=== PATIENT | male | born 1965 | race Caucasian/White ===

== ENCOUNTER 2023-11-14 13:50 | Outpatient (OUT) | payer OTHER, SELFPAY ==
--- NOTE | 2023-11-14 14:06 | XR_ITS ---
The [address] [address] Patient Name: HINA ALDRIDGE MRN: [id number] date: 1965 Sex: M Assigned Patient Location: LAB Current Patient Location: LAB Accession/Order Number: [id number] Exam Date: 11/14/2023 14:19 Report Date: 11/14/2023 15:33 At the request of: JONI CAMPOS Procedure: XR chest 2V EXAMINATION: XR chest 2V HISTORY: shortness of breath R06.02 COMPARISON: 02/09/2023 TECHNIQUE: PA and lateral FINDINGS: LUNGS: No significant pulmonary parenchymal abnormalities. VASCULATURE: No increased pulmonary vasculature. PLEURA: No pneumothorax, effusion, or pleural thickening. Elevation of the right hemidiaphragm CARDIAC: No cardiomegaly or cardiac silhouette abnormality. MEDIASTINUM: No visible mass or adenopathy. BONES: No fracture or visible bone lesion. Cervical fusion hardware OTHER: Negative. XR/XR chest 2V IMPRESSION: No acute cardiopulmonary process Electronically authenticated by: NEYDA KEYS Date: 11/14/2023 15:33
[2023-11-14 14:37] LABS: Estimated Average Glucose 131 mg/dL; Glycohemoglobin A1C 6.2 % (4.5-6.2)
[2023-11-14 14:38] LABS: Alanine Aminotransferase 113 U/L (16-63); Alkaline Phosphatase 67 U/L (46-116); Anion Gap 12.8; Aspartate Amino Transferase 49 U/L (15-37); BUN Creatinine Ratio 8.6; Bilirubin Total 0.6 mg/dL (0.2-1.0); Calcium 9.3 mg/dL (8.5-10.1); Chloride 102 mmol/L (98-107); Chol HDL Ratio 3.5; Cholesterol 158 mg/dL (<=200); Estimated GFR (African America >60 (>=60); Estimated GFR (Non-African Ame 52 (>=60); Free T3 2.57 pg/mL (2.18-3.98); Globulin 3.9 g/dL; Glucose 112 mg/dL (74-106); HDL Cholesterol 45 mg/dL (40-60); Potassium 3.8 mmol/L (3.5-5.1); Sodium 141 mmol/L (136-145); Thyroid Stimulating Hormone 1.267 uIU/mL (0.358-3.740); Total Protein 7.9 g/dL (6.4-8.2); Triglycerides 120 mg/dL (<=150)
[2023-11-14 14:44] LABS: Basophils Absolute Auto 0.1 10^3/uL (0.0-0.1); Basophils Percent Auto 0.8 % (0.2-2.0); Eosinophils Absolute Auto 0.3 10^3/uL (0.0-0.7); Hematocrit 45.9 % (42.0-54.0); Hemoglobin 15.1 g/dL (14.0-18.0); Immature Granulocytes Abs Auto 0.09 10^3/uL (0.00-0.03); Lymphocytes Absolute Auto 2.4 10^3/uL (1.2-3.8); Lymphocytes Percent Auto 27.5 % (20.5-60.0); Mean Corpuscular HGB Conc 32.9 g/dL (29.9-35.2); Mean Platelet Volume 9.5 fL (9.5-13.5); Monocytes Absolute Auto 0.5 10^3/uL (0.3-0.8); Monocytes Percent Auto 6.1 % (1.7-12.0); Neutrophils Absolute Auto 5.4 10^3/uL (1.4-6.5); Neutrophils Percent Auto 61.6 % (43.0-75.0); Platelet Count 307 10^3/uL (150-450); Red Cell Distribution Width 13.2 % (11.0-15.0); White Blood Count 8.7 10^3/uL (4.0-11.0)
[2023-11-14 14:55] LABS: Prostate Specific Antigen Scrn 1.16 ng/mL (<=4.00)
[2023-11-15 10:10] LABS: Insulin 77.8 uIU/mL (2.6-24.9)
== END 2023-11-14 13:51 | disposition home or self-care (01) ==
PROVIDERS: PCP Family Medicine; Visit Provider Family Medicine
DX: Z00.00 Encounter for general adult medical examination without abnormal findings (principal); R06.02 Shortness of breath
CPT/HCPCS: 36415; 71046; 80053; 80061; 83036; 83525; 84436; 84443; 84481; 85025; G0103

== ENCOUNTER 2023-11-16 08:57 | Outpatient (OUT) | payer OTHER, SELFPAY ==
--- NOTE | 2023-11-16 09:00 | RT_ITS ---
The [facility] Test Date: 2023-11-16 Pat Name: HINA ALDRIDGE Department: Room: - Gender: Male French Tutor: Elicia Sarmiento RRT : 1965 Requested By: JONI CAMPOS Order Number: [id number] Reading MD: Alexandre Vaughan Interpretive Statements Pulmonary function testing was completed according to ATS criteria. Findings were considered accurate and reproducible. No bronchodilator administered. Spirometry: -FEV1/FVC: Normal @ 85% -FEV1: Normal @ 87% -FVC: Mildly reduced @ 78% Lung volumes by plethysmography: -RV: Normal @ 96% -TLC: Normal @ 100% Diffusion capacity: -DLCO: Normal @ 95% when corrected for Hb 15.1g/dL Flow-volume loop: -Mild restrictive pattern Impressions: -Mild restrictive pattern on spirometry which is not confirmed on lung volumes as they are normal - this would be consistent with an obesity pattern (stated BMI 37). Normal diffusion capacity. Clinical correlation required. Electronically Signed On 11-16-2023 16:46:29 EST by Alexandre Vaughan
--- OUTSIDE RECORDS SUMMARY | 2023-11-16 09:22 | XMS_ITS | CCD ---
Author Name Unknown Address [address] [place] [address] Organization [facility] Care Team Providers Care Coater Associate Name Role Phone MD Joni Hernandez Primary Care Provider [phone] MD Joni Hernandez Attending Provider Joni Hernandez Attending Unavailable Joni Hernandez Primary Care Unavailable Joni Hernandez Admitting Unavailable Joni Hernandez Primary Care Physician [phone] Baltazar CARTAGENA Attending Unavailable NILLBaltazar Attending Unavailable NILLBaltazar Attending Unavailable NILLBaltazar Attending Unavailable HOY ., DR QUINONES Admitting Unavailable HOY ., DR QUINONES Primary Care Unavailable HOY ., DR QUINONES Attending Unavailable HOY ., DR QUINONES Consulting Unavailable ZIEBER, DR JULIEN Townsend Consulting Unavailable HOY ., DR QUINONES Admitting Unavailable HOY ., DR QUINONES Attending Unavailable HOY ., DR QUINONES Consulting Unavailable HOY ., DR QUINONES Primary Care Unavailable NILL ., DR LEDESMA Admitting Unavailable NILL ., DR LEDESMA Attending Unavailable HOY ., DR QUINONES Primary Care Unavailable HOY ., DR QUINONES Primary Care Unavailable HOY ., DR QUINONES Admitting Unavailable HOY ., DR QUINONES Attending Unavailable HOY ., DR QUINONES Consulting Unavailable ZIEBER, DR JULIEN Townsend Consulting Unavailable REYMUNDOCHNY .MATTHEW Consulting Unavailjennifer ORELLANA ., DR GARNER Admitting Unavailable HAY ., DR GARNER Attending Unavailable HAY ., DR GARNER Consulting Unavailable HOY ., DR QUINONES Primary Care Unavailable HOY ., DR QUINONES Admitting Unavailable HOY ., DR QUINONES Attending Unavailable HOY ., DR QUINONES Consulting Unavailable HOY ., DR QUINONES Primary Care Unavailable NILL ., DR LEDESMA Admitting Unavailable NILL ., DR LEDESMA Attending Unavailable HOY ., DR QUINONES Primary Care Unavailable NILL ., DR LEDESMA Admitting Unavailable NILL ., DR LEDESMA Attending Unavailable NILL ., DR LEDESMA Consulting Unavailable HOY ., DR QUINONES Primary Care Unavailable SALLIE II, RED Consulting Unavailable ALAN PAIGE Consulting Unavailable BETH ., DR QUINONES Admitting Unavailable HOAlissa ., DR QUINONES Attending Unavailable HOY ., DR QUINONES Consulting Unavailable BETH ., DR QUINONES Primary Care Unavailable Allergies Allergy Classification Reported Allergen(s) Allergy Type Date of Onset Reaction(s) Facility (3 sources) atorvastatin; Translations: [atorvastatin] Drug Allergy Cramp (finding) [facility] (3 sources) Clindamycin; Translations: [clindamycin] Drug Allergy Eruption of skin (disorder) [facility] (3 sources) Sulfonamides (Antibiotic); Translations: [sulfa drugs] Drug allergy Eruption (morphologic abnormality) [facility] (1 source) Bacitracin / Neomycin / Polymyxin B Drug Allergy [facility] (1 source) Clindamycin Drug Allergy [facility] (1 source) Dextroamphetamine Drug Allergy [facility] (1 source) Morphine Drug Allergy 02-10-20 [facility] (1 source) Sulfonamides (Antibiotic) Drug allergy (disorder) [facility] Medications Current Medications Medication Drug Class(es) Dates Sig (Normalized) Sig (Original) Cymbalta 60 mg Cap-DR (2 sources) Start: 08-25-2022 take 1 capsule by mouth once daily Cymbalta 60 mg Cap-DR = 1 cap(s), Oral, Daily, Refills(s) 0 Start Date: 08/25/22 Status: Ordered diclofenac sodium 75 mg delayed release oral tablet (2 sources) Nonsteroidal Anti-inflammatory Drug Start: 08-25-2022 take 1 tablet by mouth twice daily diclofenac sodium 75 mg Oral EC Tab 75 mg = 1 tab(s), Oral, BID, Refills(s) 0 Start Date: 08/25/22 Status: Ordered Dulera 100 mcg-5 mcg/inh inhalation aerosol (2 sources) Start: 08-25-2022 take 2 puff(s) by inhalation twice daily Dulera 100 mcg-5 mcg/inh inhalation aerosol 2 puff(s), Inhalation, BID, Refill(s) 0 Start Date: 08/25/22 Status: Ordered famotidine 40 mg oral tablet (2 sources) Histamine-2 Receptor Antagonist Start: 08-25-2022 take 1 tablet by mouth twice daily Pepcid 40 mg Tab 40 mg = 1 tab(s), Oral, BID, Refills(s) 0 Start Date: 08/25/22 Status: Ordered fluticasone propionate 0.05 mg/actuat metered dose nasal spray (2 sources) Corticosteroid Start: 08-25-2022 Flonase 0.05 mg/inh [place] 1 spray(s), Nasal, BID, Refill(s) 0 Start Date: 08/25/22 Status: Ordered hydrocortisone acetate 25 mg/ml / pramoxine hydrochloride 10 mg/ml rectal cream (2 sources) Corticosteroid Start: 08-25-2022 hydrocortisone-p ramoxine 2.5%-1% rectal cream 1 ladi, Rectal, BID, Refill(s) 0 Start Date: 08/25/22 Status: Ordered lisinopril 40 mg oral tablet (4 sources) Angiotensin Converting Enzyme Inhibitor Start: 08-25-2022 take 1 tablet by mouth once daily lisinopril 40 mg Tab 40 mg = 1 tab(s), Oral, Daily, Refills(s) 0 Start Date: 08/25/22 Status: Ordered Start: 07-31-2018 take 20 mg by mouth once daily Lisinopril Active 20 MG PO Daily July 31, 2018 1:00am Loratadine-D 24 Hour (2 sources) Start: 08-25-2022 take 1 tablet by mouth once daily Loratadine-D 24 Hour 1 tab(s), Oral, Daily, Refill(s) 0 Start Date: 08/25/22 Status: Ordered nabumetone 500 mg oral tablet (4 sources) Nonsteroidal Anti-inflammatory Drug Start: 10-31-2019 take 2 tablets by mouth twice daily nabumetone 500 mg Tab 1,000 mg = 2 tab(s), Oral, BID, Refills(s) 0 Start Date: 10/31/19 Status: Ordered Start: 07-31-2018 take 500 mg by mouth once kellie y Nabumetone Active 500 MG PO Daily July 31, 2018 1:00am simvastatin 20 mg oral tablet (2 sources) HMG-CoA Reductase Inhibitor Start: 08-25-2022 take 1 tablet by mouth once daily at bedtime simvastatin 20 mg Tab 20 mg = 1 tab(s), Oral, Once a day (at bedtime), Refills(s) 0 Start Date: 08/25/22 Status: Ordered sucralfate 1000 mg oral tablet (2 sources) Aluminum Complex Start: 08-25-2022 Carafate 1 gr am Tab 1 gm = 1 tab(s), Oral, QIDACHS, Refills(s) 0 Start Date: 08/25/22 Status: Ordered tamsulosin hydrochloride 0.4 mg oral capsule (4 sources) alpha-Adrenergic Hope Start: 08-25-2022 take 1 capsule by mouth once daily Flomax 0.4 mg Cap 0.4 mg = 1 cap(s), Oral, Daily, Refills(s) 0 Start Date: 08/25/22 Status: Ordered Start: 07-31-2018 take 0.4 mg by mouth once kellie y Tamsulosin Active 0.4 MG PO Daily July 31, 2018 1:00am tiZANidine 4 mg oral tablet (4 sources) Central alpha-2 Adrenergic Agonist Start: 08-25-2022 take 2 tablets by mouth at bedtime tiZANidine 4 mg Tab 8 mg = 2 tab(s), Oral, Bedtime, Refills(s) 0 Start Date: 08/25/22 Status: Ordered Start: 07-31-2018 take 4 mg by mouth once daily Tizanidine Active 4 MG PO Daily July 31, 2018 1:00am traMADol hydrochloride 50 mg oral tablet (2 sources) Opioid Agonist Start: 08-25-2022 take 1 tablet by mouth three times daily traMADOL 50 mg Tab 50 mg = 1 tab(s), Oral, TID, Refills(s) 0 Start Date: 08/25/22 Status: Ordered Ventolin HFA 90 mcg/inh Aerosol-Adpt (2 sources) Start: 08-25-2022 take 2 puff(s) by inhalation every four hours Ventolin HFA 90 mcg/inh Aerosol-Adpt 2 puff(s), Inhalation, q4hr Shortness of breath or wheezing, Refill(s) 0 Start Date: 08/25/22 Status: Ordered Problems Active Problems Problem Classification Problem Date Documented Date Episodic/Chronic Anxiety disorders (3 sources) Anxiety; Translations: [Anxiety disorder, unspecified] Onset: 02-17-2008-25-2022 Chronic Asthma (2 sources) Asthma 08-25-2022 Chronic Calculus of urinary tract (3 sources) History of calculus of kidney; Translations: [Personal history of urinary calculi] Onset: 02-17-2008-25-2022 Episodic Coronary atherosclerosis and other heart disease (1 source) Atherosclerotic heart disease of [place] coronary artery without angina pectoris; Translations: [ASHD PILOT POINT CA W/O ANGINA PECTORIS] Onset: 02-17-20 Chronic Deficiency and other anemia (2 sources) Anemia 08-25-2022 Episodic Disorders of lipid metabolism (1 source) Pure hypercholesterolemia, unspecified; Translations: [PURE HYPERCHOLESTEROLEMIA UNSPEC] Onset: 02-17-20 Chronic Esophageal disorders (7 sources) Gastroesophageal reflux disease without esophagitis; Translations: [Gastro-esophageal reflux disease without esophagitis] Onset: 08-27-20 Chronic Essential hypertension (3 sources) Hypertensive disorder; Translations: [Essential (primary) hypertension] Onset: 02-17-2011-01-2019 Chronic Gastritis and duodenitis (1 source) Unspecified chronic gastritis without bleeding; Translations: [UNS CHRONIC GASTRITIS W/O BLEEDING] Onset: 09-29-19 Chronic Joint disorders and dislocations; trauma-related (4 sources) Unspecified internal derangement of unspecified knee; Translations: [Unspecified internal derangement of left knee] Onset: 06-03-20 Chronic Neoplasms of unspecified nature or uncertain behavior (2 sources) 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 11-01-2019 Episodic Nonmalignant breast conditions (1 source) Unspecified lump in the left breast, unspecified quadrant; Translations: [UNS LUMP IN LT BREAST UNS QUADRANT] Onset: 02-17-20 Episodic Nonspecific chest pain (4 sources) Chest pain, unspecified; Translations: [CHEST PAIN UNSPECIFIED] Onset: 02-10-20 Episodic Nutritional deficiencies (3 sources) Vitamin D deficiency; Translations: [Vitamin D deficiency, unspecified] Onset: 09-29-19 23 08-25-2022 Chronic Other aftercare (1 source) assisted (current) use of aspirin; Translations: [SHELTER CURRENT USE OF ASPIRIN] Onset: 02-17-20 Episodic Other aftercare (1 source) Other termite treater helper (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; Translations: [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 INSTRUCTOR CURRENT DRUG THERAPY] Onset: 02-17-20 Episodic Other and ill-defined cerebrovascular disease (2 sources) Cerebral ischemia 08-25-2022 Chronic Other gastrointestinal disorders (4 sources) History of diverticulitis; Translations: [Personal history of other diseases of the digestive system] 07-31-2018 Episodic Other gastrointestinal disorders (3 sources) Dysphagia; Translations: [Dysphagia, unspecified] Onset: 08-27-20 Episodic Other gastrointestinal disorders (2 sources) History of gastritis 08-25-2022 Episodic Other gastrointestinal disorders (1 source) Personal history of other diseases of the digestive system; Translations: [PERSONAL HX OTH DZ DIGESTIVE SYSTEM] Onset: 02-17-20 Episodic Other nervous system disorders (2 sources) Paresthesia 08-25-2022 Episodic Other nutritional; endocrine; and metabolic disorders (2 sources) Body mass index 30+ - obesity 08-27-2022 Chronic Other screening for suspected conditions (not mental disorders or infectious disease) (2 sources) Abnormal findings on diagnostic imaging of other specified body structures; Translations: [Other specified abnormal findings of blood chemistry] Onset: 07-14-20 Episodic Other skin disorders (2 sources) Senile hyperkeratosis 11-16-2019 Episodic Other upper respiratory disease (2 sources) Allergic rhinitis 08-25-2022 Chronic Residual codes; unclassified (2 sources) Obstructive sleep apnea syndrome 08-25-2022 Chronic Residual codes; unclassified (1 source) Sleep apnea, unspecified; Translations: [SLEEP APNEA UNSPECIFIED] Onset: 02-17-20 Chronic Residual codes; unclassified (5 sources) Obstructive sleep apnea (adult) (pediatric); Translations: [OBSTRUCTIVE SLEEP APNEA] Onset: 09-29-19 Chronic Residual codes; unclassified (2 sources) Insomnia 08-25-2022 Episodic Spondylosis; intervertebral disc disorders; other back problems (2 sources) Chronic low back pain 08-25-2022 Episodic Unclassified (1 source) UNSPECIFIED TOXIC ENCEPHALOPATHY; Translations: [UNSPECIFIED TOXIC ENCEPHALOPATHY] Onset: 09-29-19 Unclassified (1 source) LOW BACK PAIN, UNSPECIFIED; Translations: [LOW BACK PAIN, UNSPECIFIED] Onset: 09-29-19 Unclassified (1 source) CONTACT W/AND (SUSP) EXPOS COVID-19; Translations: [CONTACT W/AND (SUSP) EXPOS COVID-19] Onset: 09-23-19 Past or Other Problems Problem Classification Problem Date Documented Da te Episodic/Chronic Abdominal pain (6 sources) Abdominal pain; Translations: [Unspecified abdominal pain] Onset: 08-27-2022 07-31-2018 Episodic Deficiency and other anemia (1 source) Anemia, unspecified; Translations: [ANEMIA UNSPECIFIED] Onset: 06-06-2022 Episodic Malaise and fatigue (4 sources) Other fatigue; Translations: [OTHER FATIGUE] Onset: 06-02-2022 Episodic Other circulatory disease (3 sources) Other specified symptoms and signs involving the circulatory and respiratory systems; Translations: [OTH SPEC SX SIGNS INVLV CIRC RS] Onset: 10-28-2022 Episodic Other circulatory disease (1 source) Personal history of transient ischemic attack (TIA), and cerebral infarction without residual deficits; Translations: [PERS HX TIA AND CI NO RESID DEFICIT] Onset: 09-29-2022 Episodic Other gastrointestinal disorders (5 sources) Dysphagia, unspecified; Translations: [DYSPHAGIA UNSPECIFIED] Onset: 09-22-2022 Episodic Other skin disorders (4 sources) Other hypertrophic disorders of the skin; Translations: [OTHER HYPERTROPHIC DISORDERS SKIN] Onset: 10-19-2022 Episodic Residual codes; unclassified (1 source) Insomnia, unspecified; Translations: [INSOMNIA UNSPECIFIED] Onset: 09-29-2022 Episodic Results Test Name Value Interpretation Reference Range Facility BNPon 02-10-2023 Natriuretic peptide B (Bld) [Mass/Vol] 13.0 pg/mL Normal <=900.0 [facility] Comment on above: Performed By: #### CMP, BNP #### [facility] [address] [address] [address] Irene Nina CBC AUTO DIFFon 02-10-2023 BASO # 0.1 103/ul Normal 0.0-0.1 [facility] Comment on above: Performed By: #### PT, DDIM, PTT #### [facility] [address] [address] [address] Irene Nina Basophils/100 WBC (Bld) 0.9 % Normal 0.2-2.0 [facility] Comment on above: Performed By: #### PT, DDIM, PTT #### [facility] [address] [address] [address] Irene Nina EO # 0.4 103/ul Normal 0.0-0.7 [facility] Comment on above: Performed By: #### PT, DDIM, PTT #### [facility] [address] [place] [address] Dr. Irene Nina Eosinophils/100 WBC (Bld) 5.2 % Normal 0.9-7.0 [facility] Comment on above: Performed By: #### PT, DDIM, PTT #### [facility] [address] [place] [address] Dr. Irene Nina Erythrocyte distribution width (RBC) [Ratio] 13.2 % Normal 11.0-15.0 [facility] Comment on above: Performed By: #### PT, DDIM, PTT #### [facility] [address] [place] [address] Dr. Irene Nina Hematocrit (Bld) [Volume fraction] 43.4 % Normal 42.0-54.0 [facility] Comment on above: Performed By: #### PT, DDIM, PTT #### [facility] [address] [place] [address] Dr. Irene Nina Hemoglobin (Bld) [Mass/Vol] 14.0 g/dL Normal 14.0-18.0 [facility] Comment on above: Performed By: #### PT, DDIM, PTT #### [facility] [address] [place] [address] Dr. Irene Nina IG # 0.10 10e3/ul Critically high 0.00-0.03 [facility] Comment on above: Performed By: #### PT, DDIM, PTT #### [facility] [address] [place] [address] Dr. Irene Nina IG % 1.3 % Critically high 0.0-0.5 [facility] Comment on above: Performed By: #### PT, DDIM, PTT #### [facility] [address] [place] [address] Dr. Irene Nina LYMPH # 2.7 103/ul Normal 1.2-3.8 [facility] Comment on above: Performed By: #### PT, DDIM, PTT #### [facility] [address] [place] [address] Dr. Irene Nina Lymphocytes/100 WBC (Bld) 34.8 % Normal 20.5-60.0 [facility] Comment on above: Performed By: #### PT, DDIM, PTT #### [facility] [address] [place] [address] Dr. Irene Nina MANUAL DIFF REQ NO Normal [facility] Comment on above: Performed By: #### PT, DDIM, PTT #### [facility] [address] [place] [address] Dr. Irene Nina MCH (RBC) [Entitic mass] 27.7 pg Normal 25.9-34.0 [facility] Comment on above: Performed By: #### PT, DDIM, PTT #### [facility] [address] [place] [address] Dr. Irene Nina MCHC (RBC) [Mass/Vol] 32.3 g/dL Normal 29.9-35.2 [facility] Comment on above: Performed By: #### PT, DDIM, PTT #### [facility] [address] [place] [address] Dr. Irene Nina MCV (RBC) [Entitic vol] 85.8 fL Normal 80.0-94.0 [facility] Comment on above: Performed By: #### PT, DDIM, PTT #### [facility] [address] [place] [address] Dr. Irene Nina MONO # 0.6 103/ul Normal 0.3-0.8 [facility] Comment on above: Performed By: #### PT, DDIM, PTT #### [facility] [address] [place] [address] Dr. Irene Nina Monocytes/100 WBC (Bld) 7.7 % Normal 1.7-12.0 [facility] Comment on above: Performed By: #### PT, DDIM, PTT #### [facility] [address] [address] [address] Irene Nina NEUT # 3.9 103/ul Normal 1.4-6.5 [facility] Comment on above: Performed By: #### PT, DDIM, PTT #### [facility] [address] [address] [address] Irene Nina Neutrophils/100 WBC (Bld) 50.1 % Normal 43.0-75.0 [facility] Comment on above: Performed By: #### PT, DDIM, PTT #### [facility] [address] [place] [address] Dr. Irene Nina Platelet mean volume (Bld) [Entitic vol] 9.5 fL Normal 9.5-13.5 [facility] Comment on above: Performed By: #### PT, DDIM, PTT #### [facility] [address] [place] [address] Dr. Irene Nina PLT 239 103/ul Normal 150-450 [facility] Comment on above: Performed By: #### PT, DDIM, PTT #### [facility] [address] [place] [address] Dr. Irene Nina RBC 5.06 106/ul Normal 4.70-6.10 [facility] Comment on above: Performed By: #### PT, DDIM, PTT #### [facility] [address] [place] [address] Dr. Irene Nina WBC 7.8 103/ul Normal 4.0-11.0 [facility] Comment on above: Performed By: #### PT, DDIM, PTT #### [facility] [address] [place] [address] Dr. Irene Nina ECHOCARDIO M/2D COMPLETEon 0 02-10-2023 ECHOCARDIO M/2D COMPLETE Patient: HINA SCHULTZ Exam Date: 02/10/2023 : 1965 Gender:M Ordering : DR JONI HERNANDEZ . Admission #: [id number] Family : Order #: [id number] CLICK HERE TO VIEW EXAM ECHOCARDIOGRAM REPORT PROCEDURE: CARDIO PULMONARY ECHOCARDIO M/2D COMP INDICATIONS: Chest pain COMPARISON: None. DESCRIPTION: COMPLETE ECHOCARDIOGRAM Real-time transthoracic echocardiography with 2D, M-mode, spectral and color flow Doppler performed. QUALITY: Technical quality was good. LEFT VENTRICLE: Normal chamber size. Mild concentric left ventricular hypertrophy. LV EF: Global left ventricular systolic function is hyperdynamic; visually estimated ejection fraction is 65 to 70%. No significant wall motion abnormalities. DIASTOLIC: Normal diastolic function. ATRIAL SEPTUM: Inadequately seen. LEFT ATRIUM: Normal chamber size. RIGHT ATRIUM: Normal chamber size. RIGHT VENTRICLE: Normal chamber size. Normal right ventricular systolic function. TRICUSPID VALVE: Normal mobility and thickness. No stenosis with trivial regurgitation. Mild pulmonary hypertension. RVSP 40mmHg MITRAL VALVE: Normal mobility and thickness. No evidence of mitral valve stenosis. There is no mitral annular calcification. No mitral regurgitation. AORTIC VALVE: Normal trileaflet appearance. No visible sclerosis. Normal leaflet mobility. No evidence of aortic valve stenosis. No aortic regurgitation. AORTIC ROOT: Normal diameter and appearance. PULMONIC VALVE: Normal thickness and mobility. No stenosis. Trivial regurgitation. PERICARDIUM: Anterior free space; trivial effusion versus fat pad. IVC: Not well visualized. CONCLUSION: 1. Global left ventricular systolic function is hyperdynamic; visually estimated ejection fraction is 65 to 70%. 2. No significant wall motion abnormalities. 3. The right ventricle is normal in size and systolic function. 4. Normal diastolic function. 5. Mildly elevated right-sided pressures. 6. No significant valvular abnormalities. 7. Anterior free space; trivial effusion versus fat pad. Adult Echocardiography Procedure Report Left Ventricle Left Atrium LA Volume Index (2D A2C): 54.62 ml, 54.62 ml Mitral Valve Right Ventricle Aorta Aortic Valve AoV Area (Peak Jimy): 3.04 cm2, 3.04 cm2 AoV Area (VTI): 2.66 cm2, 2.66 cm2 Tricuspid Valve Pulmonic Valve Peak Velocity: 1.05 m/s, 1.18 m/s Peak Gradient: 4.98 mm[Hg] Right Atrium Dictated by: Stuart Suarez M.D. on 02/13/2023 at 14:53 Approved by: Stuart Suarez M.D. on 02/13/2023 at 14:57 Normal [facility] PROF 14(COMP METB)on 05-25-2 023 Albumin [Mass/Vol] 3.5 g/dL Normal 3.4-5.0 [facility] Comment on above: Performed By: #### CMP, BNP #### [facility] [address] [place] [address] Dr. Irene Nina Albumin/Globulin [Mass ratio] 1.1 {ratio} Normal [facility] Comment on above: Performed By: #### CMP, BNP #### [facility] [address] [address] [address] Irene Nina ALP [Catalytic activity/Vol] 63 U/L Normal 46-116 [facility] Comment on above: Performed By: #### CMP, BNP #### [facility] [address] [place] [address] Dr. Irene Nina ALT [Catalytic activity/Vol] 72 U/L Critically high 16-63 [facility] Comment on above: Performed By: #### CMP, BNP #### [facility] [address] [place] [address] Dr. Irene Nina Anion gap [Moles/Vol] 10.9 mmol/L Normal [facility] Comment on above: Performed By: #### CMP, BNP #### [facility] [address] [place] [address] Dr. Irene Nina AST [Catalytic activity/Vol] 35 U/L Normal 15-37 [facility] Comment on above: Performed By: #### CMP, BNP #### [facility] [address] [place] [address] Dr. Irene Nina Bilirubin [Mass/Vol] 0.4 mg/dL Normal 0.2-1.0 [facility] Comment on above: Performed By: #### CMP, BNP #### [facility] [address] [place] [address] Dr. Irene Nina Calcium [Mass/Vol] 9.2 mg/dL Normal 8.5-10.1 [facility] Comment on above: Performed By: #### CMP, BNP #### [facility] [address] [place] [address] Dr. Irene Nina Chloride [Moles/Vol] 105 mmol/L Normal 98-107 [facility] Comment on above: Performed By: #### CMP, BNP #### [facility] [address] [address] [address] Irene Nina CO2 [Moles/Vol] 30.2 mmol/L Normal 21.0-32.0 [facility] Comment on above: Performed By: #### CMP, BNP #### [facility] [address] [address] [address] Irene Nina Creatinine [Mass/Vol] 1.43 mg/dL Critically high 0.70-1.30 [facility] Comment on above: Performed By: #### CMP, BNP #### [facility] [address] [address] [address] Irene Nina EGFR-AF [place]EN[place]IC >60 Normal >=60 [facility] Comment on above: Performed By: #### CMP, BNP #### [facility] [address] [address] [address] Irene Nina EGFR-NON AF [place] 51 mL/min/1.73m2 Critically low >=60 [facility] Comment on above: Performed By: #### CMP, BNP #### [facility] [address] [address] [address] Irene Nina Globulin (S) [Mass/Vol] 3.3 g/dL Normal [facility] Comment on above: Performed By: #### CMP, BNP #### [facility] [address] [address] [address] Irene Nina Glucose [Mass/Vol] 100 mg/dL Normal 74-106 [facility] Comment on above: Performed By: #### CMP, BNP #### [facility] [address] [address] [address] Irene Nina Potassium [Moles/Vol] 4.1 mmol/L Normal 3.5-5.1 [facility] Comment on above: Performed By: #### CMP, BNP #### [facility] [address] [place] [address] Dr. Irene Nina Protein [Mass/Vol] 6.8 g/dL Normal 6.4-8.2 [facility] Comment on above: Performed By: #### CMP, BNP #### [facility] [address] [place] [address] Dr. Irene Nina Sodium [Moles/Vol] 142 mmol/L Normal 136-145 [facility] Comment on above: Performed By: #### CMP, BNP #### [facility] [address] [place] [address] Dr. Irene Nina Urea nitrogen [Mass/Vol] 14.0 mg/dL Normal 7.0-18.0 [facility] Comment on above: Performed By: #### CMP, BNP #### [facility] [address] [place] [address] Dr. Irene Nina Urea nitrogen/Creatin ine [Mass ratio] 9.8 mg/mg Normal [facility] Comment on above: Performed By: #### CMP, BNP #### [facility] [address] [place] [address] Dr. Irene Nina BNPon 02-09-2023 Natriuretic peptide B (Bld) [Mass/Vol] 20.0 pg/mL Normal <=900.0 [facility] Comment on above: Performed By: #### CMP, BNP, HSTROPN ### # [facility] [address] [place] [address] Dr. Irene Nina CARDIAC MP 3-6on 3 CK [Catalytic activity/Vol] 117 U/L Normal 39-308 [facility] Comment on above: Performed By: #### PT, DDIM, PTT #### [facility] [address] [place] [address] Dr. Irene Nina CK.MB [Mass/Vol] 0.99 ng/mL Normal <=3.60 [facility] Comment on above: Performed By: #### PT, DDIM, PTT #### [facility] [address] [place] [address] Dr. Irene Nina HSTROP 9.6 pg/mL Normal 4.0-76.1 [facility] Comment on above: Result Comment: CUT-OFF POINTS HAVE BEEN ESTABLISHED BASED ON THE FOURTH UNIVERSAL DEFINITIONS OF MYOCARDIAL INFARCTION. THE UPPER REFERENCE LIMIT (URL) OF TROPONIN, DEFINED THE 99TH PERCENTILE OF cTnI DISTRIBUTION IN A REFERENCE POPULATION, HAS BEEN CONFIRMED THE DECISION THRESHOLD FOR DE DIAGNOSIS. Performed By: #### P T, DDIM, PTT #### [facility] [address] [place] [address] Dr. Irene Nina CK [Catalytic activity/Vol] 132 U/L Normal 39-308 [facility] Comment on above: Performed By: #### PT, DDIM, PTT #### [facility] [address] [place] [address] Dr. Irene Nina CK.MB [Mass/Vol] 1.10 ng/mL Normal <=3.60 [facility] Comment on above: Performed By: #### PT, DDIM, PTT #### [facility] [address] [place] [address] Dr. Irene Nina HSTROP 10.2 pg/mL Normal 4.0-76.1 [facility] Comment on above: Result Comment: CUT-OFF POINTS HAVE BEEN ESTABLISHED BASED ON THE FOURTH UNIVERSAL DEFINITIONS OF MYOCARDIAL INFARCTION. THE UPPER REFERENCE LIMIT (URL) OF TROPONIN, DEFINED THE 99TH PERCENTILE OF cTnI DISTRIBUTION IN A REFERENCE POPULATION, HAS BEEN CONFIRMED THE DECISION THRESHOLD FOR DE DIAGNOSIS. Performed By: #### P T, DDIM, PTT #### [facility] [address] [place] [address] Dr. Irene Nina CBC AUTO DIFFon 02-09-2023 BASO # 0.1 103/ul Normal 0.0-0.1 [facility] Comment on above: Performed By: #### PT, DDIM, PTT #### [facility] [address] [place] [address] Dr. Irene Nina Basophils/100 WBC (Bld) 1.1 % Normal 0.2-2.0 [facility] Comment on above: Performed By: #### PT, DDIM, PTT #### [facility] [address] [place] [address] Dr. Irene Nina EO # 0.4 103/ul Normal 0.0-0.7 [facility] Comment on above: Performed By: #### PT, DDIM, PTT #### [facility] [address] [place] [address] Dr. Irene Nina Eosinophils/100 WBC (Bld) 5.0 % Normal 0.9-7.0 [facility] Comment on above: Performed By: #### PT, DDIM, PTT #### [facility] [address] [place] [address] Dr. Irene Nina Erythrocyte distribution width (RBC) [Ratio] 13.2 % Normal 11.0-15.0 [facility] Comment on above: Performed By: #### PT, DDIM, PTT #### [facility] [address] [place] [address] Dr. Irene Nina Hematocrit (Bld) [Volume fraction] 44.8 % Normal 42.0-54.0 [facility] Comment on above: Performed By: #### PT, DDIM, PTT #### [facility] [address] [place] [address] Dr. Irene Nina Hemoglobin (Bld) [Mass/Vol] 14.6 g/dL Normal 14.0-18.0 [facility] Comment on above: Performed By: #### PT, DDIM, PTT #### [facility] [address] [place] [address] Dr. Irene Nina IG # 0.05 10e3/ul Critically high 0.00-0.03 [facility] Comment on above: Performed By: #### PT, DDIM, PTT #### [facility] [address] [place] [address] Dr. Irene Nina IG % 0.7 % Critically high 0.0-0.5 [facility] Comment on above: Performed By: #### PT, DDIM, PTT #### [facility] [address] [place] [address] Dr. Irene Nina LYMPH # 2.1 103/ul Normal 1.2-3.8 [facility] Comment on above: Performed By: #### PT, DDIM, PTT #### [facility] [address] [place] [address] Dr. Irene Nina Lymphocytes/100 WBC (Bld) 28.6 % Normal 20.5-60.0 [facility] Comment on above: Performed By: #### PT, DDIM, PTT #### [facility] [address] [place] [address] Dr. Irene Nina MANUAL DIFF REQ NO Normal [facility] Comment on above: Performed By: #### PT, DDIM, PTT #### [facility] [address] [place] [address] Dr. Irene Nina MCH (RBC) [Entitic mass] 28.0 pg Normal 25.9-34.0 [facility] Comment on above: Performed By: #### PT, DDIM, PTT #### [facility] [address] [place] [address] Dr. Irene Nina MCHC (RBC) [Mass/Vol] 32.6 g/dL Normal 29.9-35.2 [facility] Comment on above: Performed By: #### PT, DDIM, PTT #### [facility] [address] [place] [address] Dr. Irene Nina MCV (RBC) [Entitic vol] 85.8 fL Normal 80.0-94.0 [facility] Comment on above: Performed By: #### PT, DDIM, PTT #### [facility] [address] [place] [address] Dr. Irene Nina MONO # 0.5 103/ul Normal 0.3-0.8 [facility] Comment on above: Performed By: #### PT, DDIM, PTT #### [facility] [address] [place] [address] Dr. Irene Nina Monocytes/100 WBC (Bld) 6.5 % Normal 1.7-12.0 [facility] Comment on above: Performed By: #### PT, DDIM, PTT #### [facility] [address] [place] [address] Dr. Irene Nina NEUT # 4.2 103/ul Normal 1.4-6.5 [facility] Comment on above: Performed By: #### PT, DDIM, PTT #### [facility] [address] [place] [address] Dr. Irene Nina Neutrophils/100 WBC (Bld) 58.1 % Normal 43.0-75.0 [facility] Comment on above: Performed By: #### PT, DDIM, PTT #### [facility] [address] [address] [address] Irene Nina Platelet mean volume (Bld) [Entitic vol] 9.8 fL Normal 9.5-13.5 [facility] Comment on above: Performed By: #### PT, DDIM, PTT #### [facility] [address] [address] [address] Irene Nina PLT 245 103/ul Normal 150-450 [facility] Comment on above: Performed By: #### PT, DDIM, PTT #### [facility] [address] [place] [address] Dr. Irene Nina RBC 5.22 106/ul Normal 4.70-6.10 [facility] Comment on above: Performed By: #### PT, DDIM, PTT #### [facility] [address] [place] [address] Dr. Irene Nina WBC 7.2 103/ul Normal 4.0-11.0 [facility] Comment on above: Performed By: #### PT, DDIM, PTT #### [facility] [address] [place] [address] Dr. Irene Nina D-DIMERon 02-09-2023 D-DIMER 0.51 mg/L FEU Normal <=0.59 [facility] Comment on above: Performed By: #### PT, DDIM, PTT #### [facility] [address] [place] [address] Dr. Irene Nina D-DIMER COMMENTS SEE BELOW Normal [facility] Comment on above: Result Comment: Increases in D-Dimer con centration observed with thromboembolic events can be variable due to localization, size, and age of the thrombus. Therefore, a thromboembolic event cannot be diagnosed with certainty on the basis of the reference range. D-Dimers may also be elevated for a variety of disorders including: advanced age, , coronary disease, cancer, liver disease, infection, inflammation, hematoma, DIC, trauma, post-surgery, diabetes, thrombolytic or anticoagulant therapy, stress, and generalized hospitalization. Performed By: #### P T, DDIM, PTT #### [facility] [address] [place] [address] Dr. Irene Nina PROF 14(COMP METB)on 023 Albumin [Mass/Vol] 3.9 g/dL Normal 3.4-5.0 [facility] Comment on above: Performed By: #### CMP, BNP, HSTROPN ### # [facility] [address] [place] [address] Dr. Irene Nina Albumin/Globulin [Mass ratio] 1.1 {ratio} Normal [facility] Comment on above: Performed By: #### CMP, BNP, HSTROPN ### # [facility] [address] [place] [address] Dr. Irene Nina ALP [Catalytic activity/Vol] 67 U/L Normal 46-116 [facility] Comment on above: Performed By: #### CMP, BNP, HSTROPN ### # [facility] [address] [place] [address] Dr. Irene Nina ALT [Catalytic activity/Vol] 68 U/L Critically high 16-63 [facility] Comment on above: Performed By: #### CMP, BNP, HSTROPN ### # [facility] [address] [place] [address] Dr. Irene Nina Anion gap [Moles/Vol] 9.4 mmol/L Normal [facility] Comment on above: Performed By: #### CMP, BNP, HSTROPN ### # [facility] [address] [place] [address] Dr. Irene Nina AST [Catalytic activity/Vol] 30 U/L Normal 15-37 [facility] Comment on above: Performed By: #### CMP, BNP, HSTROPN ### # [facility] [address] [place] [address] Dr. Irene Nina Bilirubin [Mass/Vol] 0.5 mg/dL Normal 0.2-1.0 [facility] Comment on above: Performed By: #### CMP, BNP, HSTROPN ### # [facility] [address] [place] [address] Dr. Irene Nina Calcium [Mass/Vol] 9.2 mg/dL Normal 8.5-10.1 [facility] Comment on above: Performed By: #### CMP, BNP, HSTROPN ### # [facility] [address] [place] [address] Dr. Irene Nina Chloride [Moles/Vol] 105 mmol/L Normal 98-107 [facility] Comment on above: Performed By: #### CMP, BNP, HSTROPN ### # [facility] [address] [place] [address] Dr. Irene Nina CO2 [Moles/Vol] 28.6 mmol/L Normal 21.0-32.0 [facility] Comment on above: Performed By: #### CMP, BNP, HSTROPN ### # [facility] [address] [place] [address] Dr. Irene Nina Creatinine [Mass/Vol] 1.32 mg/dL Critically high 0.70-1.30 [facility] Comment on above: Performed By: #### CMP, BNP, HSTROPN ### # [facility] [address] [place] [address] Dr. Irene Nina EGFR-AF GREENLANDIC >60 Normal >=60 [facility] Comment on above: Performed By: #### CMP, BNP, HSTROPN ### # [facility] [address] [place] [address] Dr. Irene Nina EGFR-NON AF GREENLANDIC 56 mL/min/1.73m2 Critically low >=60 [facility] Comment on above: Performed By: #### CMP, BNP, HSTROPN ### # [facility] [address] [place] [address] Dr. Irene Nina Globulin (S) [Mass/Vol] 3.6 g/dL Normal [facility] Comment on above: Performed By: #### CMP, BNP, HSTROPN ### # [facility] [address] [place] [address] Dr. Irene Nina Glucose [Mass/Vol] 123 mg/dL Critically high 74-106 [facility] Comment on above: Performed By: #### CMP, BNP, HSTROPN ### # [facility] [address] [place] [address] Dr. Irene Nina Potassium [Moles/Vol] 4.0 mmol/L Normal 3.5-5.1 [facility] Comment on above: Performed By: #### CMP, BNP, HSTROPN ### # [facility] [address] [place] [address] Dr. Irene Nina Protein [Mass/Vol] 7.5 g/dL Normal 6.4-8.2 [facility] Comment on above: Performed By: #### CMP, BNP, HSTROPN ### # [facility] [address] [place] [address] Dr. Irene Nina Sodium [Moles/Vol] 139 mmol/L Normal 136-145 [facility] Comment on above: Performed By: #### CMP, BNP, HSTROPN ### # [facility] [address] [place] [address] Dr. Irene Nina Urea nitrogen [Mass/Vol] 14.0 mg/dL Normal 7.0-18.0 [facility] Comment on above: Performed By: #### CMP, BNP, HSTROPN ### # [facility] [address] [place] [address] Dr. Irene Nina Urea nitrogen/Creatin ine [Mass ratio] 10.6 mg/mg Normal [facility] Comment on above: Performed By: #### CMP, BNP, HSTROPN ### # [facility] [address] [place] [address] Dr. Irene Nina PROTIMEon 02-09-2023 INR Coag (PPP) [Relative time] 0.99 {INR} Normal [facility] Comment on above: Performed By: #### PT, DDIM, PTT #### [facility] [address] [place] [address] Dr. Irene Nina INR GUIDELINES SEE BELOW Normal [facility] Comment on above: Result Comment: DESIRED INR: 2.0 - 3.0 C ONDITIONS NOT LISTED BELOW 2.5 - 3.5 FOR PROSTHETIC HEART VALVE REPLACEMENT 2.5 - 3.5 RECURRENT THROMBOSIS Performed By: #### P T, DDIM, PTT #### [facility] [address] [address] [address] Irene Nina PT Coag (PPP) [Time] 10.5 s Normal 9.0-11.6 [facility] Comment on above: Performed By: #### PT, DDIM, PTT #### [facility] [address] [address] [address] Irene Nina PTTon 02-09-2023 aPTT Coag (Bld) [Time] 26.9 s Normal 22.3-36.2 [facility] Comment on above: Performed By: #### PT, DDIM, PTT #### [facility] [address] [place] [address] Dr. Irene Nina TROPONIN, HIGH SENSITIVITYon 02-09-2023 HSTROP 10.0 pg/mL Normal 4.0-76.1 [facility] Comment on above: Result Comment: CUT-OFF POINTS HAVE BEEN ESTABLISHED BASED ON THE FOURTH UNIVERSAL DEFINITIONS OF MYOCARDIAL INFARCTION. THE UPPER REFERENCE LIMIT (URL) OF TROPONIN, DEFINED THE 99TH PERCENTILE OF cTnI DISTRIBUTION IN A REFERENCE POPULATION, HAS BEEN CONFIRMED THE DECISION THRESHOLD FOR DE DIAGNOSIS. Performed By: #### C MP, BNP, HSTROPN #### [facility] [address] [place] [address] Dr. Irene Nina XR CHEST 1 Von 02-09-2023 XR CHEST 1 V EXAMINATION: XR CHES T 1 V HISTORY: CHEST PAIN, UNSPECIFIED COMPARISON: No relevant comparison available. FINDINGS: LUNGS: No significant pulmonary parenchymal abnormalities. VASCULATURE: No increased pulmonary vasculature. PLEURA: No pneumothorax, effusion, or pleural thickening. CARDIAC: No cardiomegaly or cardiac silhouette abnormality. MEDIASTINUM: No visible mass or adenopathy. BONES: No fracture or visible bone lesion. OTHER: Negative. IMPRESSION: 1. No acute cardiopulmonary process. Electronically authenticated by: JULIEN OLSON Date: 2023-02-09 16:15 Normal [facility] Pathology Noteon 10-25-2022 Pathology Note [id number] Normal [facility] Ambulatory Visit Summaryon 0 10-20-2022 Ambulatory Visit Summary HINA SCHULTZ :1965 Visit Date:10/19/2022 Ambulatory Visit Instructions Your Diagnosis Skin tag Your Care Team Attending Physician - TONY WHITESIDE, Baltazar Townsend Primary Care Physician - Joni Hernandez MD This Is Your Medications List Contact prescribing physician if questions or concerns albuterol (Ventolin HFA 90 mcg/inh Aerosol-Adpt) diclofenac (diclofenac sodium 75 mg Oral EC Tab) duloxetine (Cymbalta 60 mg Cap-DR) famotidine (Pepcid 40 mg Tab) fluticasone nasal (Flonase 0.05 mg/inh Fromberg) formoterol-mometasone (Dulera 100 mcg-5 mcg/inh inhalation aerosol) hydrocortisone-pramoxine topical (hydrocortisone-pramoxine 2.5%-1% rectal cream) lisinopril (lisinopril 40 mg Tab) loratadine-pseudoephedrine (Loratadine-D 24 Hour) nabumetone (nabumetone 500 mg Tab) simvastatin (simvastatin 20 mg Tab) sucralfate (Carafate 1 gram Tab) tamsulosin (Flomax 0.4 mg Cap) tizanidine (tiZANidine 4 mg Tab) tramadol (traMADOL 50 mg Tab) Procedures Performed EGD - Esophagogastroduodenoscopy (09/22/2022), Arthroscopy of knee, Arthroscopy of knee, Cervical laminectomy, Colonoscopy, Cystoscopy, EGD - Esophagogastroduodenoscopy, Excision of cyst, Lithotripsy, Meniscal repair. Medications What How Much When Instructions Unchanged albuterol (Ventolin HFA 90 mcg/ inh Aerosol-Adpt) 2 Puffs Inhalation Every 4 hours as needed for Shortness of breath or wheezing Contact prescribing physician if questions or concerns Unchanged diclofenac (diclofenac sodium 75 mg Oral EC Tab) 1 Tablets By Mouth 2 times a day Contact prescribing physician if questions or concerns Unchanged duloxetine (Cymbalta 60 mg Cap-DR) 1 Capsules By Mouth Every day Contact prescribing physician if questions or concerns Unchanged famotidine (Pepcid 40 mg Tab) 1 Tablets By Mouth 2 times a day Contact prescribing physician if questions or concerns Unchanged fluticasone nasal (Flonase 0.05 mg/ inh Fromberg) 1 Sprays Nasal Inhalation 2 times a day Contact prescribing physician if questions or concerns Unchanged formoterol-mometasone (Dulera 100 mcg-5 mcg/ inh inhalation aerosol) 2 Puffs Inhalation 2 times a day Contact prescribing physician if questions or concerns Unchanged hydrocortisone-pramoxine topical (hydrocortisone-pramoxine 2.5%-1% rectal cream) 1 Application By rectum 2 times a day Contact prescribing physician if questions or concerns Unchanged lisinopril (lisinopril 40 mg Tab) 1 Tablets By Mouth Every day Contact prescribing physician if questions or concerns Unchanged loratadine-pseudoephedrine (Loratadine-D 24 Hour) 1 Tablets By Mouth Every day Contact prescribing physician if questions or concerns Unchanged nabumetone (nabumetone 500 mg Tab) 2 Tablets By Mouth 2 times a day Contact prescribing physician if questions or concerns Unchanged simvastatin (simvastatin 20 mg Tab) 1 Tablets By Mouth Once a day (at bedtime) Contact prescribing physician if questions or concerns Unchanged sucralfate (Carafate 1 gram Tab) 1 Tablets By Mouth Four times a day (before meals and at bedtime) Contact prescribing physician if questions or concerns Unchanged tamsulosin (Flomax 0.4 mg Cap) 1 Capsules By Mouth Every day Contact prescribing physician if questions or concerns Unchanged tizanidine (tiZANidine 4 mg Tab) 2 Tablets By Mouth At bedtime Contact prescribing physician if questions or concerns Unchanged tramadol (traMADOL 50 mg Tab) 1 Tablets By Mouth 3 times a day Contact prescribing physician if questions or concerns Allergies Lipitor (Muscle cramps) clindamycin (Rash) sulfa drugs (Rash) Problems Ongoing - Any problem that you are currently receiving treatment for. Allergic rhinitis Anemia Anxiety Asthma BMI 33.0-33.9,adult Chronic GERD Chronic low back pain Dysphagia Epigastric pain GERD (gastroesophageal reflux disease) History of diverticulitis History of gastritis History of nephrolithiasis HTN (hypertension) Insomnia Neoplasm of uncertain behavior of scalp CEFERINO (obstructive sleep apnea) Paresthesia Seborrheic keratosis Skin tag Transient cerebral ischemia Vitamin D deficiency Normal [facility] General Surgery Office/Clini c Noteon 10-19-2022 General Surgery Office/Clinic Note Chief Complaint in-office excisional biopsy HPI Staff Presents for in-office excisional biopsy left eyelid skin tag. History of Present Illness 57 yo male referred for enlarging skin tag left upper eyelid; irritating; no bleeding. Review of Systems ROS - Provider Constitutional: no fever, no sweats, no weight loss. Eyes: no glasses, no blurred vision, no visual loss. ENMT: no dentures, no hoarseness, no swallowing difficulties, no hearing loss, no ear infection(s), no nose bleeds. Cardiovascular: normal blood pressure, no chest pain, regular heartbeat, no heart murmur. Respiratory: no shortness of breath, no cough, no asthma, no wheezing. Gastrointestinal: no nausea, no vomiting, no diarrhea, no constipation, no blood in stool, no change in bowel habits, no abdominal pain, no hepatitis. Genitourinary: no kidney stones, no urine infection, no dysuria. Musculoskeletal: no pain, no weakness. Skin: no changing moles, no rash, no skin lumps. Neurologic: no seizures, no epilepsy, no headache. Psychiatric: no emotional or psychiatric problem. Heme/Lymph: no bleeding problems, no anemia, no blood clots, no transfusions. Allergy/Immunologic: no swollen lymph nodes/glands, no IV drug abuse. Other: Additional ROS info: Except as noted in the above Review of Systems and in the History of Present Illness, all other systems have been reviewed and are negative or noncontributory. Physical Exam skin: left upper eyelid with 4 mm skin tag, narrow base; no pigmentation changes or ulceration. Assessment/Plan 1. Skin tag (L91.8: Other hypertrophic disorders of the skin) excised under local anesthesia and cauterized; tolerated well, call with problems/questions. Follow-up No qualifying data available Problem List/Past Medical History Ongoing Allergic rhinitis Anemia Anxiety Asthma BMI 33.0-33.9,adult Chronic GERD Chronic low back pain Dysphagia Epigastric pain GERD (gastroesophageal reflux disease) History of diverticulitis History of gastritis History of nephrolithiasis HTN (hypertension) Insomnia Neoplasm of uncertain behavior of scalp CEFERINO (obstructive sleep apnea) Paresthesia Seborrheic keratosis Skin tag Transient cerebral ischemia Vitamin D deficiency Historical No qualifying data Procedure/Surgical History EGD - Esophagogastroduodenoscopy (09/22/2022), Arthroscopy of knee, Arthroscopy of knee, Cervical laminectomy, Colonoscopy, Cystoscopy, EGD - Esophagogastroduodenoscopy, Excision of cyst, Lithotripsy, Meniscal repair. Medications Carafate 1 gram Tab, 1 gm= 1 tab(s), Oral, QIDACHS Cymbalta 60 mg Cap-DR, 1 cap(s), Oral, Daily diclofenac sodium 75 mg Oral EC Tab, 75 mg= 1 tab(s), Oral, BID Dulera 100 mcg-5 mcg/inh inhalation aerosol, 2 puff(s), Inhalation, BID Flomax 0.4 mg Cap, 0.4 mg= 1 cap(s), Oral, Daily Flonase 0.05 mg/inh Fromberg, 1 spray(s), Nasal, BID hydrocortisone-pramoxine 2.5%-1% rectal cream, 1 ladi, Rectal, BID lisinopril 40 mg Tab, 40 mg= 1 tab(s), Oral, Daily Loratadine-D 24 Hour, 1 tab(s), Oral, Daily nabumetone 500 mg Tab, 1000 mg= 2 tab(s), Oral, BID Pepcid 40 mg Tab, 40 mg= 1 tab(s), Oral, BID simvastatin 20 mg Tab, 20 mg= 1 tab(s), Oral, Once a day (at bedtime) tiZANidine 4 mg Tab, 8 mg= 2 tab(s), Oral, Bedtime traMADOL 50 mg Tab, 50 mg= 1 tab(s), Oral, TID Ventolin HFA 90 mcg/inh Aerosol-Adpt, 2 puff(s), Inhalation, q4hr, PRN Allergies Lipitor (Muscle cramps) clindamycin (Rash) sulfa drugs (Rash) Social History Alcohol - Denies Alcohol Use, 10/31/2019 Substance Abuse - Denies Substance Abuse, 10/31/2019 Tobacco Never (less than 100 in lifetime) Tobacco Use:. Never Smokeless Tobacco Use:., 08/27/2022 Family History Primary malignant neoplasm of skin: Mother. Immunizations Vaccine Date Status Comments influenza virus vaccine, inactivated - Not Given Patient Refuses influenza virus vaccine, live, trivalent - Not Given Patient Refuses Normal [facility] Comment on above: Result Comment: Electronically Signed By : TONY WHITESIDE, Baltazar Lundberg\Date and Time Signed: 10/19/22 14:08 EST General Surgery Office/Clini c Noteon 10-01-2022 General Surgery Office/Clinic Note Chief Complaint EGD follow up HPI Staff 9 day post operative follow up post EGD with antral biopsy. History of Present Illness s/p EGD with antral bx for GERD/coughing, dysphagia; no hiatal hernia, no esophagitis, mild antral gastritis, bx negative for H pylori; taking Protonix bid, and carafate with some improvement; some sinus problems likely contributing. Review of Systems ROS - Provider Constitutional: no fever, no sweats, no weight loss. Eyes: no glasses, no blurred vision, no visual loss. ENMT: no dentures, no hoarseness, no swallowing difficulties, no hearing loss, no ear infection(s), no nose bleeds. Cardiovascular: normal blood pressure, no chest pain, regular heartbeat, no heart murmur. Respiratory: no shortness of breath, no cough, no asthma, no wheezing. Gastrointestinal: no nausea, no vomiting, no diarrhea, no constipation, no blood in stool, no change in bowel habits, no abdominal pain, no hepatitis. Genitourinary: no kidney stones, no urine infection, no dysuria. Musculoskeletal: no pain, no weakness. Skin: no changing moles, no rash, no skin lumps. Neurologic: no seizures, no epilepsy, no headache. Psychiatric: no emotional or psychiatric problem. Heme/Lymph: no bleeding problems, no anemia, no blood clots, no transfusions. Allergy/Immunologic: no swollen lymph nodes/glands, no IV drug abuse. Other: Additional ROS info: Except as noted in the above Review of Systems and in the History of Present Illness, all other systems have been reviewed and are negative or noncontributory. Assessment/Plan 1. Chronic GERD (K21.9: Gastro-esophageal reflux disease without esophagitis) no evidence of esophagitis; continue bid PPI and Carafate at least bid; call with problems/questions. wt loss would help with symptoms. Follow-up No qualifying data available Problem List/Past Medical History Ongoing Allergic rhinitis Anemia Anxiety Asthma BMI 33.0-33.9,adult Chronic GERD Chronic low back pain Dysphagia Epigastric pain GERD (gastroesophageal reflux disease) History of diverticulitis History of gastritis History of nephrolithiasis HTN (hypertension) Insomnia Neoplasm of uncertain behavior of scalp CEFERINO (obstructive sleep apnea) Paresthesia Seborrheic keratosis Transient cerebral ischemia Vitamin D deficiency Historical No qualifying data Procedure/Surgical History EGD - Esophagogastroduodenoscopy (09/22/2022), Arthroscopy of knee, Arthroscopy of knee, Cervical laminectomy, Colonoscopy, Cystoscopy, EGD - Esophagogastroduodenoscopy, Excision of cyst, Lithotripsy, Meniscal repair. Medications Carafate 1 gram Tab, 1 gm= 1 tab(s), Oral, QIDACHS Cymbalta 60 mg Cap-DR, 1 cap(s), Oral, Daily diclofenac sodium 75 mg Oral EC Tab, 75 mg= 1 tab(s), Oral, BID Dulera 100 mcg-5 mcg/inh inhalation aerosol, 2 puff(s), Inhalation, BID Flomax 0.4 mg Cap, 0.4 mg= 1 cap(s), Oral, Daily Flonase 0.05 mg/inh Fromberg, 1 spray(s), Nasal, BID hydrocortisone-pramoxine 2.5%-1% rectal cream, 1 ladi, Rectal, BID lisinopril 40 mg Tab, 40 mg= 1 tab(s), Oral, Daily Loratadine-D 24 Hour, 1 tab(s), Oral, Daily nabumetone 500 mg Tab, 1000 mg= 2 tab(s), Oral, BID Pepcid 40 mg Tab, 40 mg= 1 tab(s), Oral, BID simvastatin 20 mg Tab, 20 mg= 1 tab(s), Oral, Once a day (at bedtime) tiZANidine 4 mg Tab, 8 mg= 2 tab(s), Oral, Bedtime traMADOL 50 mg Tab, 50 mg= 1 tab(s), Oral, TID Ventolin HFA 90 mcg/inh Aerosol-Adpt, 2 puff(s), Inhalation, q4hr, PRN Allergies Lipitor (Muscle cramps) clindamycin (Rash) sulfa drugs (Rash) Social History Alcohol - Denies Alcohol Use, 10/31/2019 Substance Abuse - Denies Substance Abuse, 10/31/2019 Tobacco Never (less than 100 in lifetime) Tobacco Use:. Never Smokeless Tobacco Use:., 08/27/2022 Family History Primary malignant neoplasm of skin: Mother. Immunizations Vaccine Date Status Comments influenza virus vaccine, inactivated - Not Given Patient Refuses influenza virus vaccine, live, trivalent - Not Given Patient Refuses Normal [facility] Comment on above: Result Comment: Electronically Signed By : TONY WHITESIDE, Baltazar Lundberg\Date and Time Signed: 10/01/22 16:02 EST Pathology Noteon 09-27-2022 Pathology Note [id number]#1.00CD:127 Normal [facility] Operative Reporton 3 Operative Report [id number]#1.00CD:127 Normal [facility] Lab Reportson 09-21-2022 Lab Reports [id number]#1.00CD:127 Normal [facility] SARS-CoV-2 (COVID-19) RNA LUC+probe Ql (Unsp spec) Not detected Normal NOT DETECTED [facility] Comment on above: Result Comment: When diagnostic testing is negative, the possibility of a false negative should be considered in the context of a patient's recent exposures and the presence of clinical signs and symptoms consistent with SARS-CoV-2. This test is not yet approved or cleared by the [place] FDA. When there are no FDA-approved or cleared tests available, and other criteria are met, FDA can make tests available under an emergency access mechanism called an Emergency Use Authorization (EUA). The EUA for this test is supported by the Pressure Testing Technician of Health and Human Service's declaration that circumstances exist to justify the emergency use of in vitro diagnostics for the detection and/or diagnosis of the virus that causes COVID-19. This EUA will remain in effect for the duration of the COVID-19 declaration justifying emergency of IVDs, unless it is terminated or revoked by the FDA (after which the test may no longer be used). Performed By: #### P T, DDIM, PTT #### [facility] [address] [place] [address] Dr. Irene Nina INFLUENZA A AND B AGon 09-[facility] Normal [facility] Comment on above: Result Comment: Negative for Flu A prote in angiten. Infection due to Flu A cannot be ruled out. Flu A angiten in the sample may be below the detection limit of the test. Performed By: #### P T, DDIM, PTT #### [facility] [address] [place] [address] Dr. Irene Nina [facility] SEE BELOW Normal [facility] Comment on above: Result Comment: Negative for Flu B prote in antigen. Infection due to Flu B cannot be ruled out. Flu B antigen in the sample may be below the detection limit of the test. Performed By: #### P T, DDIM, PTT #### [facility] [address] [place] [address] Dr. Irene Nina INFLUENZA A AG Negative Normal NEGATIVE SEE COMMENT [facility] Comment on above: Performed By: #### PT, DDIM, PTT #### [facility] [address] [place] [address] Dr. Irene Nina INFLUENZA B AG Negative Normal NEGATIVE SEE COMMENT [facility] Comment on above: Performed By: #### PT, DDIM, PTT #### [facility] [address] [place] [address] Dr. Irene Nina Pre-Certification Formon Pre-Certificatio n Form [id number]#1.00CD:127 Normal [facility] Facesheeton 09-01-2022 Facesheet [id number]#1.00CD:127 Normal [facility] Consent for Procedure/Surger yon 08-31-2022 Consent for Procedure/Surger y [id number]#1.00CD:127 Normal [facility] MR knee LT wo conon 07-14-20 [place] [address] MRI Report Signed Patient: Hina Schultz MR#: [id number] : 1965 Acct:[id number] Age/Sex: 57 / M ADM Date: 07/14/22 Loc: Room: Type: [facility] Attending Dr: Joni Hernandez MD Copies to: Joni Hernandez MD Ordering Provider: Joni Hernandez MD Date of Service: 07/14/22 MR/MR knee LT wo con: ABNORMAL KNEE MR knee LT wo con 07/14/2022 9:39 AM SIGNS AND SYMPTOMS: Hyperflexion of left knee with anterior and medial left knee pain PROTOCOL: Multiplanar multisequence MR images of the left knee were obtained without IV contrast. COMPARISON: None. FINDINGS: Fluid: There is a small joint effusion.. Medial compartment: Medial meniscus: There is a complex tear of the posterior horn of the medial meniscus extending into the body of the medial meniscus without displaced fragments.. Medial collateral ligament: Intact. Medial femoral condyle cartilage: Preserved. Medial tibial plateau cartilage: Preserved. Lateral compartment: Lateral meniscus: Intact. Lateral collateral ligament: Intact. Lateral femoral condyle cartilage: There is partial thickness chondromalacia. Lateral tibial plateau cartilage: There is partial thickness chondromalacia. Posterolateral corner: Popliteus tendon: Intact. Popliteofibular ligament: Intact. Proximal tibiofibular joint: Intact. Anterior compartment: Alignment: Normal. Quadriceps tendon: Intact. Patellar tendon: Intact. Retinaculum: Medial intact. Lateral intact. Patellar cartilage: Preserved. Trochlea: Preserved. . Plica: None. Hoffa fat pad: Normal. Intercondylar compartment: Anterior cruciate ligament: Intact. Posterior cruciate ligament: Intact. Bones (other than subarticular marrow): Normal. Muscles: Normal. Vessels: Normal. Nerves: Normal. MR/MR knee LT wo con IMPRESSION: There is a complex tear of the posterior horn of the medial meniscus extending into the body of the medial meniscus without displaced fragments. There is partial thickness chondromalacia along the lateral femoral condyle and lateral tibial plateau. There is a small joint effusion. Impression dictated by: Mp Zambrano M.D.07/14/2022 1:58 PM Dictation Location: [place] [address] Transcribed By: [facility] 07/14/22 1257 Dictated By: Mp Zambrano II, MD 07/14/22 7898 Signed By: 07/14/22 1352 [facility] XR pre/post mri xrayon 07-14 XR pre/post mri xray [facility] Main [place] [address] [place] [address] XRay Report Signed Patient: Hina Schultz MR#: [id number] : 1965 Acct:[id number] Age/Sex: 57 / M ADM Date: 07/14/22 Loc: Room: Type: [facility] Attending Dr: Joni Hernandez MD Copies to: Joni Hernandez MD Ordering Provider: Joni Hernandez MD Date of Service: 07/14/22 XR/XR pre/post mri xray: ABNORMAL,KNEE 2 views of the LEFT knee obtained for pre-MRI assessment. Chondrocalcinosis of menisci present. No joint effusion. Bony alignment adequate. No acute bony findings. Mild patellar spurring. XR/XR pre/post mri xray IMPRESSION: Mild degeneration. Impression dictated by: Skip Garibay M.D.07/14/2022 2:01 PM Dictation Location: [place] [address] Transcribed By: [facility] 07/14/22 1401 Dictated By: Skip Garibay DO 07/14/22 1400 Signed By: 07/14/22 1401 [facility] VIT D 25-OH [facility]on 2021 Vitamin D, 25-Hydroxy 38.8 ng/mL Normal 30.0-100.0 [facility] Comment on above: Result Comment: Vitamin D deficiency has been defined by the [place] of Medicine and an Endocrine Society practice guideline as a level of serum 25-OH vitamin D less than 20 ng/mL (1,2). The Endocrine Society went on to further define vitamin D insufficiency as a level between 21 and 29 ng/mL (2). 1. IOM ([place] of [employer]). 2010. Dietary reference intakes for calcium and D. [place]: The National Academies Press. 2. Liz WILDER, Cas LORA, Doreen COLE, et al. Evaluation, treatment, and prevention of vitamin D deficiency: an Endocrine Society clinical practice guideline. JCEM. 2010; 96(7):1911-30. Performed By: #### V ITADLC #### [facility] [address] [place] [address] [address] Irene Nina CBC AUTO DIFFon 06-02-2022 BASO # 0.1 103/ul Normal 0.0-0.1 [facility] Comment on above: Performed By: #### CBC #### [facility] [address] [place] [address] [address] Ireen Nina Basophils/100 WBC (Bld) 1.1 % Normal 0.2-2.0 [facility] Comment on above: Performed By: #### CBC #### [facility] [address] [place] [address] [address] Irene Nina EO # 0.3 103/ul Normal 0.0-0.7 [facility] Comment on above: Performed By: #### CBC #### [facility] [address] [place] [address] [address] Irene Nina Eosinophils/100 WBC (Bld) 3.6 % Normal 0.9-7.0 [facility] Comment on above: Performed By: #### CBC #### [facility] [address] [place] [address] [address] Irene Nina Erythrocyte distribution width (RBC) [Ratio] 13.1 % Normal 11.0-15.0 [facility] Comment on above: Performed By: #### CBC #### [facility] [address] [place] [address] [address] Irene Nina Hematocrit (Bld) [Volume fraction] 44.4 % Normal 42.0-54.0 [facility] Comment on above: Performed By: #### CBC #### [facility] [address] [place] [address] [address] Irene Nina Hemoglobin (Bld) [Mass/Vol] 14.8 g/dL Normal 14.0-18.0 [facility] Comment on above: Performed By: #### CBC #### [facility] [address] [place] [address] [address] Irene Nina IG # 0.13 10e3/ul Critically high 0.00-0.03 [facility] Comment on above: Performed By: #### CBC #### [facility] [address] [place] [address] [address] Irene Nina IG % 1.8 % Critically high 0.0-0.5 [facility] Comment on above: Performed By: #### CBC #### [facility] [address] [place] [address] Dr. Irene Nina LYMPH # 1.9 103/ul Normal 1.2-3.8 [facility] Comment on above: Performed By: #### CBC #### [facility] [address] [place] [address] Dr. Irene Nina Lymphocytes/100 WBC (Bld) 25.5 % Normal 20.5-60.0 [facility] Comment on above: Performed By: #### CBC #### [facility] [address] [place] [address] Dr. Irene Nina MANUAL DIFF REQ NO Normal [facility] Comment on above: Performed By: #### CBC #### [facility] [address] [place] [address] Dr. Irene Nina MCH (RBC) [Entitic mass] 28.6 pg Normal 25.9-34.0 [facility] Comment on above: Performed By: #### CBC #### [facility] [address] [place] [address] Dr. Irene Nina MCHC (RBC) [Mass/Vol] 33.3 g/dL Normal 29.9-35.2 [facility] Comment on above: Performed By: #### CBC #### [facility] [address] [place] [address] Dr. Irene Nina MCV (RBC) [Entitic vol] 85.9 fL Normal 80.0-94.0 [facility] Comment on above: Performed By: #### CBC #### [facility] [address] [place] [address] Dr. Irene Nina MONO # 0.4 103/ul Normal 0.3-0.8 [facility] Comment on above: Performed By: #### CBC #### [facility] [address] [place] [address] Dr. Irene Nina Monocytes/100 WBC (Bld) 5.2 % Normal 1.7-12.0 [facility] Comment on above: Performed By: #### CBC #### [facility] [address] [place] [address] Dr. Irene Nina NEUT # 4.6 103/ul Normal 1.4-6.5 [facility] Comment on above: Performed By: #### CBC #### [facility] [address] [place] [address] Dr. Irene Nina Neutrophils/100 WBC (Bld) 62.8 % Normal 43.0-75.0 [facility] Comment on above: Performed By: #### CBC #### [facility] [address] [place] [address] Dr. Irene Nina Platelet mean volume (Bld) [Entitic vol] 10.1 fL Normal 9.5-13.5 [facility] Comment on above: Performed By: #### CBC #### [facility] [address] [place] [address] Dr. Irene Nina PLT 240 103/ul Normal 150-450 [facility] Comment on above: Performed By: #### CBC #### [facility] [address] [place] [address] Dr. Irene Nina RBC 5.17 106/ul Normal 4.70-6.10 [facility] Comment on above: Performed By: #### CBC #### [facility] [address] [place] [address] Dr. Irene Nina WBC 7.3 103/ul Normal 4.0-11.0 [facility] Comment on above: Performed By: #### CBC #### [facility] [address] [place] [address] Dr. Irene Nina IRONon 06-02-2022 Iron [Mass/Vol] 100.0 ug/dL Normal 65.0-175.0 [facility] Comment on above: Performed By: #### PT, DDIM, PTT #### [facility] [address] [place] [address] Dr. Irene Nina PROF 14(COMP METB)on 022 Albumin [Mass/Vol] 4.2 g/dL Normal 3.4-5.0 [facility] Comment on above: Performed By: #### PT, DDIM, PTT #### [facility] [address] [place] [address] [address] Irene Nina Albumin/Globulin [Mass ratio] 1.4 {ratio} Normal [facility] Comment on above: Performed By: #### PT, DDIM, PTT #### [facility] [address] [place] [address] [address] Irene Nina ALP [Catalytic activity/Vol] 57 U/L Normal 46-116 [facility] Comment on above: Performed By: #### PT, DDIM, PTT #### [facility] [address] [place] [address] [address] Irene Nina ALT [Catalytic activity/Vol] 60 U/L Normal 16-63 [facility] Comment on above: Performed By: #### PT, DDIM, PTT #### [facility] [address] [place] [address] [address] Irene Nina Anion gap [Moles/Vol] 12.9 mmol/L Normal [facility] Comment on above: Performed By: #### PT, DDIM, PTT #### [facility] [address] [place] [address] [address] Irene Nina AST [Catalytic activity/Vol] 43 U/L Critically high 15-37 [facility] Comment on above: Performed By: #### PT, DDIM, PTT #### [facility] [address] [place] [address] [address] Irene Nina Bilirubin [Mass/Vol] 0.8 mg/dL Normal 0.2-1.0 [facility] Comment on above: Performed By: #### PT, DDIM, PTT #### [facility] [address] [place] [address] [address] Irene Nina Calcium [Mass/Vol] 9.3 mg/dL Normal 8.5-10.1 [facility] Comment on above: Performed By: #### PT, DDIM, PTT #### [facility] [address] [place] [address] [address] Irene Nina Chloride [Moles/Vol] 104 mmol/L Normal 98-107 [facility] Comment on above: Performed By: #### PT, DDIM, PTT #### [facility] [address] [place] [address] [address] Irene Nina CO2 [Moles/Vol] 24.7 mmol/L Normal 21.0-32.0 [facility] Comment on above: Performed By: #### PT, DDIM, PTT #### [facility] [address] [place] [address] [address] Irene Nina Creatinine [Mass/Vol] 1.00 mg/dL Normal 0.70-1.30 [facility] Comment on above: Performed By: #### PT, DDIM, PTT #### [facility] [address] [place] [address] Dr. Irene Nina EGFR-AF GREENLANDIC >60 Normal >=60 [facility] Comment on above: Performed By: #### PT, DDIM, PTT #### [facility] [address] [place] [address] Dr. Irene Nina EGFR-NON AF GREENLANDIC >60 Normal >=60 [facility] Comment on above: Performed By: #### PT, DDIM, PTT #### [facility] [address] [place] [address] Dr. Irene Nina Globulin (S) [Mass/Vol] 2.9 g/dL Normal [facility] Comment on above: Performed By: #### PT, DDIM, PTT #### [facility] [address] [place] [address] Dr. Irene Nina Glucose [Mass/Vol] 145 mg/dL Critically high 74-106 [facility] Comment on above: Performed By: #### PT, DDIM, PTT #### [facility] [address] [place] [address] [address] Irene Nina Potassium [Moles/Vol] 4.6 mmol/L Normal 3.5-5.1 [facility] Comment on above: Result Comment: specimen slightly hemoly zed Performed By: #### P T, DDIM, PTT #### [facility] [address] [place] [address] Dr. Irene Nina Protein [Mass/Vol] 7.1 g/dL Normal 6.4-8.2 [facility] Comment on above: Performed By: #### PT, DDIM, PTT #### [facility] [address] [place] [address] Dr. Irene Nina Sodium [Moles/Vol] 137 mmol/L Normal 136-145 [facility] Comment on above: Performed By: #### PT, DDIM, PTT #### [facility] [address] [place] [address] Dr. Irene Nina Urea nitrogen [Mass/Vol] 12.0 mg/dL Normal 7.0-18.0 [facility] Comment on above: Performed By: #### PT, DDIM, PTT #### [facility] [address] [place] [address] Dr. Irene Nina Urea nitrogen/Creatin ine [Mass ratio] 12.0 mg/mg Normal [facility] Comment on above: Performed By: #### PT, DDIM, PTT #### [facility] [address] [place] [address] Dr. Irene Nina VIT B12 AND FOLATEon 022 Cobalamin (Vitamin B12) [Mass/Vol] 436.0 pg/mL Normal 193.0-986.0 [facility] Comment on above: Performed By: #### PT, DDIM, PTT #### [facility] [address] [place] [address] Dr. Irene Nina FOLATE 18.30 ng/mL Normal 8.60-58.90 [facility] Comment on above: Performed By: #### PT, DDIM, PTT #### [facility] [address] [place] [address] Dr. Irene Nina Vital Signs Date Time Vital Sign Value Performing Clinician Manolo rubalcava 08-27-2022 13:16-0500 Blood Pressure Location Baltazar CARTAGENA [facility] [place] 08-27-2022 13:16-0500 Diastolic blood pressure 84 mm[Hg] Baltazar NILL [facility] [place] 08-27-2022 13:16-0500 Heart rate 76 /min Baltazar NILL [facility] [place] 08-27-2022 13:16-0500 Respiratory rate 16 /min Baltazar SHAWL [facility] [place] 08-27-2022 13:16-0500 Systolic blood pressure 118 mm[Hg] Baltazar NILL [facility] 07-14-2022 09:48-0400 Diastolic blood pressure 106 mm[Hg] MD Joni Hernandez Work Phone: [facility] 07-14-2022 09:48-0400 Heart rate 108 /min MD Joni Hernandez Work Phone: [facility] 07-14-2022 09:48-0400 Respiratory rate 20 /min MD Joni Hernandez Work Phone: [facility] 07-14-2022 09:48-0400 SaO2% (BldA) [Mass fraction] 95 % MD Joni Hernandez Work Phone: [facility] 07-14-2022 09:48-0400 Systolic blood pressure 186 mm[Hg] MD Joni Hernandez Work Phone: [facility] 07-14-2022 09:47-0400 Body height 175.26 cm MD Joni Hernandez Work Phone: [facility] 07-14-2022 09:47-0400 Body weight 91.62 kg MD Joni Hernandez Work Phone: [facility] Encounters Encounter Date Encounter Type Care Provider Facility Start: 02-09-2023 End: 02-10-[address] JONI HERNANDEZ . Facility:[facility] Start: 10-28-2022 End: 10-28-[address] PATSY ORELLANA . Facility:[facility] Start: 10-26-2022 End: 02-08-[address] JONI HERNANDEZ . Facility: Start: 10-19-2022 End: 10-19-[address] BALTAZAR CARTAGENA . Facility: Start: 10-19-2022 End: 10-20-2022 ambulatory Baltazar CARTAGENA Facility:[facility] Start: 10-01-2022 End: 10-02-2022 ambulatory Baltazar SHAWL Facility:[facility] Start: 10-01-2022 End: 10-01-2022 Patient encounter procedure Baltazar CARTAGENA [facility] Start: 09-23-2022 Encounter for preprocedural laboratory examination DR JONI HERNANDEZ . [facility] Start: 09-22-2022 End: 09-23-2022 ambulatory Baltazar CARTAGENA Facility:CD:[id number] Start: 09-17-2022 End: 09-18-2022 Encounter for preprocedural laboratory examination DR JONI HERNANDEZ . Facility: Start: 09-17-2022 End: 09-18-[address] JONI HERNANDEZ . Facility: Start: 08-27-2022 End: 08-28-2022 ambulatory Baltazar CARTAGENA Facility:[facility] Start: 08-27-2022 End: 08-27-2022 Patient encounter procedure Baltazar CARTAGENA General Surgery [facility] [place] Start: 07-14-2022 End: 07-14-2022 ambulatory Joni Hernandez Facility:[facility] Start: 07-14-2022 End: 07-14-2022 ambulatory MD Joni Hernandez Work Phone: [facility] Work Phone: Start: 07-14-2022 End: 07-14-2022 Patient encounter procedure MD Joni Hernandez Work Phone: [facility] [place] Start: 06-22-2022 End: 06-22-2022 ambulatory MD Joni Hernandez Work Phone: [facility] Work Phone: Start: 06-22-2022 End: 06-22-2022 Patient encounter procedure MD Joni Hernandez Work Phone: [facility] [place] Start: 06-03-2022 End: 06-04-[address] JONI HERNANDEZ . Facility: Start: 06-02-2022 End: 06-03-[address] JONI HERNANDEZ . Facility: Procedures Date Procedure Procedure Detail Performing Clinician Start: 09-22-2022 Esophagogastroduodenoscopy Baltazar NILL Start: 07-14-2022 XR pre/post mri xray MD Joni Hernandez Work Phone: Start: 07-14-2022 MRI of left knee MD All Hernandez Work Phone: Arthroscopy of knee Baltazar NILL Arthroscopy of knee Baltazar NILL Cervical laminectomy Baltazar NILL Colonoscopy Baltazar NILL Cystoscopy Baltazar NILL Esophagogastroduodenoscopy M ichael NILL Excision of cyst Baltazar NIL L Lithotripsy Baltazar NILL Repair of meniscus Baltazar RUTH Immunizations Immunization Date Immunization Notes Care Provider Karoline hernandez NEGATED: Highlighted row has not occurred!08-27-2022 influenza virus vaccine, unspecified formulation Baltazar NILL [facility] [place] NEGATED: Highlighted row has not occurred!10-30-2019 influenza virus vaccine, live, attenuated, for intranasal use Baltazar NILL [facility] [place] Payers Date Payer Category Payer Self-pay [id number] 1965 Unknown [id number] 2.16.8 [id number] 1965 Unknown [id number] 2.16.8 [id number] 1963 Unknown [id number] 2.16.8 40.1.443894.3.579.2.727 1963 Unknown [id number] 2.16.8 40.1.932724.3.579.2.727 1963 Unknown [id number] 2.16.84 0.1.662833.3.579.2.593 1963 Unknown [id number] 2.16.84 0.1.812738.3.579.2.593 1963 Unknown [id number] 2.16.84 0.1.608911.3.579.2.593 1963 Unknown [id number] 2.16.84 0.1.999533.3.579.2.593 1963 Unknown [id number] 2.16.84 0.1.090368.3.579.2.593 1963 Unknown [id number] 2.16.84 0.1.497715.3.579.2.593 1963 Unknown [id number] 2.16.84 0.1.565233.3.579.2.593 1963 Unknown [id number] 2.16.84 0.1.919818.3.579.2.593 1963 Unknown [id number] 2.16.84 0.1.258619.3.579.2.593 1961 Medicaid [id number] 1959 Unknown [id number] 1959 Unknown [id number] Unknown [employer] [id number] Unknown [id number] 2.16.8 [id number] Social History Date Type Detail Facility Tobacco smoking stat [facility] Unknown if ever smoked [facility] Work Phone: Start: 1965 Sex Assigned At Male Dorian [facility] Start: 08-27-2022 Tobacco smoking status Never s moked tobacco (finding) [facility] [place] Tobacco smoking status Never [facility] [place] Sex Assigned At Male [facility] Functional Status Date Assessment Result Facility 08-27-2022 Functional Status N/A [facility] [place] Clinical Note 09-22-2022 Note Date & Type Note Facility 09-22-2022 Note OPERATIVE NOTE OPERATION DATE: 09/22/2022 PREOPERATIVE DIAGNOSIS: Dysphagia, gastroesophageal reflux disease, intermittent epigastric pain. POSTOPERATIVE DIAGNOSIS: Antral gastritis. PROCEDURE: EGD with antral biopsy. SURGEON: Baltazar Cartagena M.D. ANESTHESIA: Monitored anesthesia care. ESTIMATED BLOOD LOSS: Less than 1 mL. INDICATIONS AND CONSENT: Patient is a 57-year-old male with a history of intermittent dysphagia for solid foods as well as chronic gastroesophageal reflux disease and intermittent epigastric abdominal pain. Indications, risks, benefits, alternatives of proceeding with EGD were explained extensively to the patient, including the risks of bleeding, aspiration, esophageal/gastric/duodenal perforation or anesthetic complications. All of his questions were answered. Informed consent was obtained. PROCEDURE: Patient brought to the operating room, placed in the left lateral decubitus position. Monitored anesthesia care was provided. A bite block was placed in the patient's mouth. Scope was inserted into the oropharynx. Under direct visualization, it was advanced into the esophagus, past the cricopharyngeus, down to the stomach. The stomach was insufflated with air. The pylorus was traversed down to the descending portion of the duodenum. There was no evidence of duodenitis or ulceration. There was no scarring within the pyloric channel. Scope was pulled back into the stomach and retroflexed. There was no significant hiatal hernia. Within the antrum, there was noted to be some mild antral gastritis in a linear pattern without ulceration or bleeding. Biopsies were obtained with pediatric cold biopsy forceps with good hemostasis. The GE junction was noted at approximately 40 cm. There was no distal esophagitis or Blanton's changes. The remainder of the esophagus was unremarkable. The scope was then withdrawn. The patient tolerated procedure well, sent to recovery room in good condition. CC: Patient's family physician [facility] Clinical Note 08-27-2022 Note Date & Type Note Facility 08-27-2022 Note Chief Complaint consultation for GERD HPI Staff 57 year old male presents on consultation from Dr. Hernandez for GERD. Denies epigastric pain, heartburn or indigestion. States he has a long standing history of cough after eating and feeling of food being stuck in esophagus. Reports frequent sore throat and acid taste in mouth. Was taking Pantoprazole for many years, reports he never noted a difference with medication. Has been taking Pepcid BID x 1 week. Previous EGD many years ago, spouse believes there may have been a polyp removed at this time. History of Present Illness 57 yo male with h/o htn, asthma, TIA, CEFERINO, GERD, chronic low back pain; hypercholesterolemia, referred for dysphagia and worsening GERD, reports long h/o GERD, was on Protonix daily for many years, stopped working, recently stopped several days ago and began Pepcid; has burning pain into chest; no N/V; occasional regurgitation; some dysphagia for solid foods, feels in lower chest, eventually goes down; no h/o food impaction; remote EGD, no known hiatal hernia; no wt loss, some mild weight gain; no change in bowel habits; on Diclofenac daily, no asa; no tobacco use. Review of Systems PHQ Score Initial Depression Screen Score: 0 ROS - Provider Constitutional: no fever, no sweats, no weight loss. Eyes: no glasses, no blurred vision, no visual loss. ENMT: no dentures, no hoarseness, no swallowing difficulties, no hearing loss, no ear infection(s), no nose bleeds. Cardiovascular: normal blood pressure, no chest pain, regular heartbeat, no heart murmur. Respiratory: no shortness of breath, no cough, no asthma, no wheezing. Gastrointestinal: no nausea, no vomiting, no diarrhea, no constipation, no blood in stool, no change in bowel habits, yes abdominal pain, no hepatitis. Genitourinary: no kidney stones, no urine infection, no dysuria. Musculoskeletal: no pain, no weakness. Skin: no changing moles, no rash, no skin lumps. Neurologic: no seizures, no epilepsy, no headache. Psychiatric: no emotional or psychiatric problem. Heme/Lymph: no bleeding problems, no anemia, no blood clots, no transfusions. Allergy/Immunologic: no swollen lymph nodes/glands, no IV drug abuse. Other: Additional ROS info: Except as noted in the above Review of Systems and in the History of Present Illness, all other systems have been reviewed and are negative or noncontributory. Physical Exam Vitals & Measurements HR: 76(Peripheral) RR: 16 BP: 118/84 HT: 69 in HT: 175 cm WT: 102 kg WT: 224.4 lb BMI: 33.31 HEENT: normal conjunctiva, sclera clear, no scleral icterus, EOM intact, PERRLA, oral mucosa moist without lesions. Neck: trachea midline, no mass, symmetric, no thyromegaly or nodules, no adenopathy Respiratory: lungs CTA, respirations non labored. Cardiovascular: regular rate and rhythm, no murmur, no pedal edema or varicosities. Gastrointestinal: obese, soft, non distended, mild tenderness, epigastrium; no masses, no palpable hernias, diastasis recti no, no hepatosplenomegaly; normal bs Lymphatic: no cervical adenopathy, Musculoskeletal: normal gait, digits and nails without infection, nodes, cyanosis, clubbing. Skin: no rashes, no lesions, no ulcers, no subcutaneous nodules, induration. Psychiatric/Neuro: oriented to time, place, person, judgement normal, affect appropriate for age, insight intact, no focal deficits. Tests: review of old records completed, Discussed surgical options, risks, and possible complications with patient. Assessment/Plan 1. Dysphagia (R13.10: Dysphagia, unspecified) plan EGD under anesthesia, informed consent obtained. 2. Epigastric pain (R10.13: Epigastric pain) see # 1 3. Chronic GERD (K21.9: Gastro-esophageal reflux disease without esophagitis) see # 1 Follow-up No qualifying data available Problem List/Past Medical History Ongoing Allergic rhinitis Anemia Anxiety Asthma BMI 33.0-33.9,adult Chronic GERD Chronic low back pain Dysphagia Epigastric pain GERD (gastroesophageal reflux disease) History of diverticulitis History of gastritis History of nephrolithiasis HTN (hypertension) Insomnia Neoplasm of uncertain behavior of scalp CEFERINO (obstructive sleep apnea) Paresthesia Seborrheic keratosis Transient cerebral ischemia Vitamin D deficiency Historical No qualifying data Procedure/Surgical History Arthroscopy of knee, Arthroscopy of knee, Cervical laminectomy, Colonoscopy, Cystoscopy, EGD - Esophagogastroduodenoscopy, Excision of cyst, Lithotripsy, Meniscal repair. Medications Carafate 1 gram Tab, 1 gm= 1 tab(s), Oral, QIDACHS Cymbalta 60 mg Cap-DR, 1 cap(s), Oral, Daily diclofenac sodium 75 mg Oral EC Tab, 75 mg= 1 tab(s), Oral, BID Dulera 100 mcg-5 mcg/inh inhalation aerosol, 2 puff(s), Inhalation, BID Flomax 0.4 mg Cap, 0.4 mg= 1 cap(s), Oral, Daily Flonase 0.05 mg/inh Fromberg, 1 spray(s), Nasal, BID hydrocortisone-pramoxine 2.5%-1% rectal cream, 1 ladi, Rectal, BID lisinopril 40 m (more content not included)... [facility] Comment on above: Result Comment: Elec tronically Signed By: TONY WHITESIDE, Baltazar Ny.erum\Date and Time Signed: 08/27/22 16:22 EST Clinical Note 06-03-2022 Note Date & Type Note Facility 06-03-2022 Note PROCEDURE: XR KNEE L T 4V or > HISTORY: Derangement of knee ; left knee pain after running and feeling a popping sensation COMPARISON: None. FINDINGS: BONES:No fracture, dislocation, or significant joint space narrowing. Small degenerative osteophytes along the articular margins of patella. SOFT TISSUES:Calcium deposition within the menisci. EFFUSION:Small joint effusion. OTHER: Negative. IMPRESSION: 1. Small joint effusion and mild degenerative joint disease. 2. No acute bone abnormality. Electronically authenticated by: JULIEN OLSON Date: 2022-06-03 11:45 [facility] Evaluation + Plan note Note Date & Type Note Facility Evaluation + Plan note No data available for this section [facility] [place] Evaluation note Note Date & Type Note Facility Evaluation note No assessment [facility] Hospital Discharge instructions Note Date & Type Note Facility Hospital Discharge instructions No data available for this section [facility] [place] Progress note Note Date & Type Note Facility Progress note No data available for this section [facility] [place] Chief Complaint and Reason for Visit Chief Complaint m23.90 Advance Directives No Advanced Directives Records Found Advance Directive Response Recorded Date/ Time Advance Directives No July 8:44am Summary Purpose Family History No Family History Records FoundNo Family History Records FoundNo Family History Records Found Additional Source Comments Care Teams (unrecognized sec tion and content) Team Status: Inactive Member Role Status Dates Joni Hernandez MD Primary Care Provider, Attending Pr sandy Active Team Status: Active Member Role Status Dates Joni Hernandez MD Primary Care Provider Active Goals (unrecognized section and content) Goals may be documented in a n alternate sectionGoals may be documented in an alternate section No data available for this section No data available for this section (unrecognized sect ion and content) No Status Records FoundNo Status Records FoundNo Status Records Found INFORMATION SOURCE (unrecogn ized section and content) DATE CREATED AUTHOR 07/29/2022 [facility] DATE CREATED AUTHOR AUTHOR'S ORGANIZ ATION 10/25/2022 [facility] DATE CREATED AUTHOR AUTHOR'S ORGANIZ ATION 02/25/2023 [facility] FOR RECORDS PERTAINING TO PATIENTS WHO ARE OR HAVE BEEN ENROLLED IN A CHEMICAL DEPENDENCY/SUBSTANCEABUSE PROGRAM, SOME INFORMATION MAY BE OMITTED. This clinical summary was aggregated from multiple sources. Caution should be exercised in using it in the provision of clinical care. This summary normalizes information from multiple sources, and as a consequence, information in this document may materially change the coding, format and clinical context of patient data. In addition, data may be omitted in some cases. CLINICAL DECISIONS SHOULD BE BASED ON THE PRIMARY CLINICAL RECORDS. [employer] provides no warranty or guarantee of the accuracy or completeness of information in this document.
== END 2023-11-16 08:58 | disposition home or self-care (01) ==
LOC: CARD 08:57
PROVIDERS: PCP Family Medicine; Visit Provider Family Medicine
DX: R06.02 Shortness of breath (principal); R06.2 Wheezing
CPT/HCPCS: 94010; 94726; 94729

== ENCOUNTER 2024-09-06 14:36 | Outpatient (OUT) | payer MEDICAID, SELFPAY | END 2024-09-06 14:37 | disposition home or self-care (01) | LOC: PST 14:36 | PROVIDERS: PCP Family Medicine; Visit Provider Surgery | DX: K62.5 Hemorrhage of anus and rectum (principal) ==

== ENCOUNTER 2024-09-26 09:24 | Day surgery (SDC) | payer MEDICAID, SELFPAY ==
--- NOTE | 2024-09-26 | OP_ITS ---
OPERATION DATE: 09/26/2024 PREOPERATIVE DIAGNOSIS: Intermittent rectal bleeding. POSTOPERATIVE DIAGNOSIS: Prominent rectal veins as well as a 2 mm rectal polyp. PROCEDURE: Colonoscopy to cecum with cold biopsy forceps polypectomy x1. SURGEON: Junaid Cartagena M.D. ANESTHESIA: Monitored anesthesia care. ESTIMATED BLOOD LOSS: Less than 1 mL. INDICATIONS AND CONSENT: Patient is a 59-year-old male with history of intermittent rectal bleeding. Indications, risks, benefits, alternatives of proceeding with colonoscopy were explained extensively to the patient, including the risks of bleeding, colon perforation or anesthetic complications. All of his questions were answered. Informed consent was obtained. PROCEDURE: Patient brought to the operating room, placed in the left lateral decubitus position. Monitored anesthesia care was provided. Rectal exam was performed which showed no masses or blood. The scope was inserted into the anal canal. Under direct visualization was advanced. With the aid of abdominal compression and positional changes, it was advanced to the cecum where cecal markings were clearly identified. There was noted to be a good prep. Upon withdrawal of the scope, mucosal surfaces were carefully examined. There was noted to be some redundancy of the colon with spasm. There were no mass lesions or inflammatory changes. There was moderate sigmoid diverticulosis without inflammatory changes or scarring. There was no old or new blood. Within the rectum, there was noted to be a 2 mm sessile polyp near the anal verge that was removed with cold biopsy forceps with good hemostasis. There were also noted to be prominent rectal veins with no old or new blood. The scope was retroflexed in the anal canal. There was no significant hemorrhoidal disease. The scope was then withdrawn. Patient tolerated procedure well, was sent to recovery room in good condition. f/u colonoscopy likely in 5 years, but may change based on pathology report. CC: Pablo Hernandez M.D. PIERRE
[2024-09-26 09:34] VITALS: BP 158/117; PULSE 88; TEMP 36.1; O2SAT 98; BMI 35.0
[2024-09-26] MEDS: 0.9 % SODIUM CHLORIDE 500 ML 50 ML IV ×2 (09:58→12:05)
[2024-09-26 10:16] VITALS: BP 149/104
--- NOTE | 2024-09-26 10:20 | PC.NURSE ---
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
[2024-09-26 12:21] VITALS: BP 131/76; PULSE 91; TEMP 36.6; O2SAT 97
[2024-09-26 12:36] VITALS: BP 144/104; PULSE 86; O2SAT 97
[2024-09-26 12:51] VITALS: BP 145/86; PULSE 80; O2SAT 97
== END 2024-09-26 12:51 | disposition home or self-care (01) ==
PROVIDERS: PCP Family Medicine; Visit Provider Surgery
PROC: (CPT 811; principal; 2024-09-26 10:30)
DX: K62.5 Hemorrhage of anus and rectum (principal); K57.30 Diverticulosis of large intestine without perforation or abscess without bleeding; K62.1 Rectal polyp; K62.89 Other specified diseases of anus and rectum; E78.00 Pure hypercholesterolemia, unspecified; I10 Essential (primary) hypertension; G47.33 Obstructive sleep apnea (adult) (pediatric); G21.9 Secondary parkinsonism, unspecified; J45.909 Unspecified asthma, uncomplicated; N40.0 Benign prostatic hyperplasia without lower urinary tract symptoms; Z87.442 Personal history of urinary calculi; R73.03 Prediabetes
CPT/HCPCS: 00811; 45380; 88305; J2704

== ENCOUNTER 2025-03-08 12:28 | Outpatient (OUT) | payer MEDICAID, SELFPAY ==
--- OUTSIDE RECORDS SUMMARY | 2025-03-08 12:36 | XMS_ITS | CCD ---
Author Organization [facility] Care Team Providers Care [place] Name Role Phone MD Joni Hernandez Primary Care Provider [phone] MD Joni Hernandez Attending Provider [phone] Joni Hernandez Primary Care Physician MARY Jo, DR QUINONES Admitting Unavailable HOY ., DR [...] Unavailable ZIEBER, DR JULIEN Townsend Consulting Unavailable GRECHNY ., MATTHEW FERGUSON Consulting Unavailabl e HAY ., DR GARNER Admitting Unavailable HAY ., [...] RED Consulting Unavailable ALAN PAIGE Consulting Unavailable HOY ., DR QUINONES Admitting Unavailable HOY ., DR QUINONES Attending Unavailable HOY ., DR QUINONES Consulting Unavailable MARY ., DR QUINONES Primary Care Unavailable Joni Hernandez MD Primary Care Provider [phone] Baltazar Cartagena MD Attending Provider Joni Hernandez Primary Care Unavailable Baltazar Cartagena Attending Unavailable Baltazar Cartagena Admitting Unavailable TONY, Baltazar Townsend Attending Unavailable TONY, Baltazar Townsend Attending Unavailable Joni Hernandez Referring Unavailable NILL, Baltazar Townsend Attending Unavailable Allergies Allergy Classification Reported Allergen(s) Allergy Type Date of Onset Reaction(s) Facility (5 sources) atorvastatin; Translations: [atorvastatin] Drug Allergy Cramp (finding) [facility] (5 sources) Clindamycin; Translations: [clindamycin] Drug Allergy Eruption of skin (disorder) [facility] (5 sources) Sulfonamides (Antibiotic); Translations: [sulfa drugs] Drug allergy Eruption (morphologic abnormality) [facility] (1 source) Bacitracin / Neomycin / Polymyxin B Drug Allergy [facility] (1 source) Clindamycin Drug Allergy [facility] (1 source) Dextroamphetamine Drug Allergy [facility] (2 sources) Morphine; Translations: [morphine] Drug Allergy 02-09-20 [facility] (1 source) Sulfonamides (Antibiotic) Drug allergy (disorder) [facility] (2 sources) Morphine; Translations: [morphine] Drug Allergy 02-09-20 Unknown [facility] Medications Current Medications Medication Drug Class(es) Dates Sig (Normalized) Sig (Original) aspirin 325 mg delayed release oral tablet (2 sources) Platelet Aggregation Inhibitor, Nonsteroidal Anti-inflammatory Drug Start: 09-03-2024 take 1 tablet by mouth once daily aspirin 325 mg Oral EC Tab 325 mg = 1 tab(s), Oral, Daily, Refills(s) 0 Start Date: 09/03/24 Status: Ordered Cymbalta 60 mg Cap-DR (4 sources) Start: 08-25-2022 take 1 capsule by mouth once daily Cymbalta 60 mg Cap-DR = 1 cap(s), Oral, Daily, Refills(s) 0 Start Date: 08/25/22 Status: Ordered diclofenac sodium 75 mg delayed release oral tablet (4 sources) Nonsteroidal Anti-inflammatory Drug Start: 08-25-2022 take 1 tablet by mouth twice daily diclofenac sodium 75 mg Oral EC Tab 75 mg = 1 tab(s), Oral, BID, Refills(s) 0 Start Date: 08/25/22 Status: Ordered Dulera 100 mcg-5 mcg/inh inhalation aerosol (4 sources) Start: 08-25-2022 take 2 puff(s) by inhalation twice daily Dulera 100 mcg-5 mcg/inh inhalation aerosol 2 puff(s), Inhalation, BID, Refill(s) 0 Start Date: 08/25/22 Status: Ordered famotidine 40 mg oral tablet (4 sources) Histamine-2 Receptor Antagonist Start: 08-25-2022 take 1 tablet by mouth once daily at bedtime Pepcid 40 mg Tab 40 mg = 1 tab(s), Oral, Once a day (at bedtime), Refills(s) 0 Start Date: 08/25/22 Status: Ordered Start: 08-25-2022 take 1 tablet by temo th twice daily Pepcid 40 mg Tab 40 mg = 1 tab(s), Oral, BID, Refills(s) 0 Start Date: 08/25/22 Status: Ordered fluticasone propionate 0.05 mg/actuat metered dose nasal spray (6 sources) Corticosteroid Start: 09-03-2024 Flonase 0.05 m g/inh [place] 1 spray(s), Nasal, Daily, Refill(s) 0 Start Date: 09/03/24 Status: Ordered Start: 08-25-2022 Flonase 0.05 m g/inh [place] 1 spray(s), Nasal, BID, Refill(s) 0 Start Date: 08/25/22 Status: Ordered hydrocortisone acetate 25 mg/ml / pramoxine hydrochloride 10 mg/ml rectal cream (4 sources) Corticosteroid Start: 08-25-2022 hydrocortisone-pramoxine 2.5%-1% rectal cream 1 ladi, Rectal, BID, Refill(s) 0 Start Date: 08/25/22 Status: Ordered lisinopril 40 mg oral tablet (7 sources) Angiotensin Converting Enzyme Inhibitor Start: 08-25-2022 take 1 tablet by mouth once daily lisinopril 40 mg Tab 40 mg = 1 tab(s), Oral, Daily, Refills(s) 0 Start Date: 08/25/22 Status: Ordered Start: 07-31-2018 take 1 tablet by temo th once daily Lisinopril 20 mg tablet Active 20 MG PO Daily July 31, 2018 12:00am Loratadine-D 24 Hour (4 sources) Start: 08-25-2022 take 1 tablet by mouth once daily Loratadine-D 24 Hour 1 tab(s), Oral, Daily, Refill(s) 0 Start Date: 08/25/22 Status: Ordered nabumetone 500 mg oral tablet (5 sources) Nonsteroidal Anti-inflammatory Drug Start: 10-31-2019 take 2 tablets by mouth twice daily nabumetone 500 mg Tab 1,000 mg = 2 tab(s), Oral, BID, Refills(s) 0 Start Date: 10/31/19 Status: Ordered Start: 07-31-2018 take 1 tablet by temo th once daily Nabumetone 500 mg tablet Active 500 MG PO Daily July 31, 2018 12:00am pantoprazole 40 mg delayed release oral tablet (2 sources) Proton Pump Inhibitor Start: 09-03-2024 take 1 tablet by mouth once daily Pantoprazole [address] Tab 40 mg = 1 tab(s), Oral, Daily, Refills(s) 0 Start Date: 09/03/24 Status: Ordered simvastatin 20 mg oral tablet (4 sources) HMG-CoA Reductase Inhibitor Start: 08-25-2022 take 1 tablet by mouth once daily at bedtime simvastatin 20 mg Tab 20 mg = 1 tab(s), Oral, Once a day (at bedtime), Refills(s) 0 Start Date: 08/25/22 Status: Ordered sucralfate 1000 mg oral tablet (4 sources) Aluminum Complex Start: 09-03-2024 take 1 tablet by mouth twice daily Carafate 1 gram Tab 1 gm = 1 tab(s), Oral, BID, Refills(s) 0 Start Date: 09/03/24 Status: Ordered Start: 08-25-2022 Carafate 1 gra m Tab 1 gm = 1 tab(s), Oral, QIDACHS, Refills(s) 0 Start Date: 08/25/22 Status: Ordered tamsulosin hydrochloride 0.4 mg oral capsule (7 sources) alpha-Adrenergic [place] Start: 07-31-2018 take 1 capsule by mouth once daily Flomax 0.4 mg Cap 0.4 mg = 1 cap(s), Oral, Daily, Refills(s) 0 Start Date: 08/25/22 Status: Ordered tiZANidine 4 mg oral tablet (5 sources) Central alpha-2 Adrenergic Agonist Start: 08-25-2022 take 2 tablets by mouth at bedtime tiZANidine 4 mg Tab 8 mg = 2 tab(s), Oral, Bedtime, Refills(s) 0 Start Date: 08/25/22 Status: Ordered Start: 07-31-2018 take 1 tablet by temo th once daily Tizanidine 4 mg tablet Active 4 MG PO Daily July 31, 2018 12:00am traMADol hydrochloride 50 mg oral tablet (2 sources) Opioid Agonist Start: 08-25-2022 take 1 tablet by mouth three times daily traMADOL 50 mg Tab 50 mg = 1 tab(s), Oral, TID, Refills(s) 0 Start Date: 08/25/22 Status: Ordered Ventolin HFA 90 mcg/inh Aerosol-Adpt (4 sources) Start: 08-25-2022 take 2 puff(s) by inhalation every four hours Ventolin HFA 90 mcg/inh Aerosol-Adpt 2 puff(s), Inhalation, q4hr Shortness of breath or wheezing, Refill(s) 0 Start Date: 08/25/22 Status: Ordered Problems Active Problems Problem Classification Problem Date Documented Date Episodic/Chronic Abdominal pain (9 sources) Abdominal pain; Translations: [Unspecified abdominal pain] Onset: 08-27-20 22 07-31-2018 Episodic Comment on above: Problem List clean-u p per request of Phys. EHR Cmte Anal and rectal conditions (3 sources) Anorectal disorder; Translations: [Other specified diseases of anus and rectum] Onset: 09-04-20 Episodic Anxiety disorders (5 sources) Anxiety; Translations: [Anxiety disorder, unspecified] Onset: 02-17-20 23 08-25-2022 Chronic Asthma (4 sources) Asthma 08-25-2022 Chronic Calculus of urinary tract (5 sources) History of calculus of kidney; Translations: [Personal history of urinary calculi] Onset: 02-17-20 23 08-25-2022 Episodic Coronary atherosclerosis and other heart disease (1 source) Atherosclerotic heart disease of [place] coronary artery without angina pectoris; Translations: [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] Onset: 02-17-20 Chronic Deficiency and other anemia (4 sources) Anemia 08-25-2022 Episodic Diabetes mellitus without complication (2 sources) Prediabetes 09-03-2024 Episodic Disorders of lipid metabolism (1 source) Pure hypercholesterolemia, unspecified; Translations: [PURE HYPERCHOLESTEROLEMIA UNSPEC] Onset: 02-17-20 Chronic Esophageal disorders (11 sources) Gastroesophageal reflux disease without esophagitis; Translations: [Gastro-esophageal reflux disease without esophagitis] Onset: 08-27-20 Chronic Essential hypertension (5 sources) Hypertensive disorder; Translations: [Essential (primary) hypertension] Onset: 02-17-2011-01-2019 Chronic Gastritis and duodenitis (1 source) Unspecified chronic gastritis without bleeding; Translations: [UNS CHRONIC GASTRITIS W/O BLEEDING] Onset: 09-29-19 Chronic Gastrointestinal hemorrhage (3 sources) Hemorrhage of rectum and anus; Translations: [Hemorrhage of anus and rectum] Onset: 09-04-20 Episodic Hyperplasia of prostate (2 sources) Benign prostatic hyperplasia 09-03-2024 Chronic Joint disorders and dislocations; trauma-related (4 sources) Unspecified internal derangement of unspecified knee; Translations: [Unspecified internal derangement of left knee] Onset: 06-03-20 Chronic Neoplasms of unspecified nature or uncertain behavior (4 sources) 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 11-01-2019 Episodic Nonmalignant breast conditions (1 source) Unspecified lump in the left breast, unspecified quadrant; Translations: [UNS LUMP IN LT BREAST UNS QUADRANT] Onset: 02-17-20 Episodic Nonspecific chest pain (4 sources) Chest pain, unspecified; Translations: [CHEST PAIN UNSPECIFIED] Onset: 02-10-20 Episodic Nutritional deficiencies (5 sources) Vitamin D deficiency; Translations: [Vitamin D deficiency, unspecified] Onset: 09-29-19 23 08-25-2022 Chronic Other aftercare (1 source) 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 EHR Cmte Other gastrointestinal disorders (5 sources) Dysphagia; Translations: [Dysphagia, unspecified] Onset: 08-27-20 Episodic Other gastrointestinal disorders (4 sources) History of gastritis 08-25-2022 Episodic Other gastrointestinal disorders (1 source) Personal history of other diseases of the digestive system; Translations: [PERSONAL HX OTH DZ DIGESTIVE SYSTEM] Onset: 02-17-20 Episodic Other nervous system disorders (4 sources) Paresthesia 08-25-2022 Episodic Other nutritional; endocrine; and metabolic disorders (4 sources) Body mass index 30+ - obesity 08-27-2022 Chronic Other screening for suspected conditions (not mental disorders or infectious disease) (1 source) Other specified abnormal findings of blood chemistry; Translations: [OTH SPEC ABNORMAL FINDINGS BLD CHEM] Onset: 02-17-20 Episodic Other skin disorders (4 sources) Senile hyperkeratosis 11-16-2019 Episodic Other skin disorders (2 sources) Skin tag 10-19-2022 Episodic Other upper respiratory disease (4 sources) Allergic rhinitis 08-25-2022 Chronic Residual codes; unclassified (4 sources) Obstructive sleep apnea syndrome 08-25-2022 Chronic Residual codes; unclassified (1 source) Sleep apnea, unspecified; Translations: [SLEEP APNEA UNSPECIFIED] Onset: 02-17-20 Chronic Residual codes; unclassified (5 sources) Obstructive sleep apnea (adult) (pediatric); Translations: [OBSTRUCTIVE SLEEP APNEA] Onset: 09-29-19 Chronic Residual codes; unclassified (4 sources) Insomnia 08-25-2022 Episodic Spondylosis; intervertebral disc disorders; other back problems (4 sources) Chronic low back pain 08-25-2022 Episodic Unclassified (1 source) UNSPECIFIED TOXIC ENCEPHALOPATHY; Translations: [UNSPECIFIED TOXIC ENCEPHALOPATHY] Onset: 09-29-19 Unclassified (1 source) LOW BACK PAIN, UNSPECIFIED; Translations: [LOW BACK PAIN, UNSPECIFIED] Onset: 09-29-19 Unclassified (1 source) CONTACT W/AND (SUSP) EXPOS COVID-19; Translations: [CONTACT W/AND (SUSP) EXPOS COVID-19] Onset: 09-23-19 Past or Other Problems Problem Classification Problem Date Documented Da te Episodic/Chronic Deficiency and other anemia (1 source) Anemia, [...] Test Name Value Interpretation Reference Range Facility Reminderson 10-10-2024 Reminders Reminders From: Virginie Ch LPN To: [facility] - Clinical; Sent: 10/10/2024 14:57:12 EST Show up: 08/26/2034 07:00:00 EST Subject: colonoscopy recall Due Date/Time: 09/26/2034 07:00:00 EST Reminder/Recall Patient due for screening colonoscopy 09/26/2034. Marylu Salinas [facility] Brian 09-26-2024 L --------- ----- Specimen: [id number] Received: 09/27/24 Status: SHOSHANA Goyalvick Num: [id number] Spec Type: Surgical Subm Dr: Baltazar Cartagena MD FACS Tissues: A Colon Biopsy (RECTAL POLYP) Procedures: HE/2, Gross/Micro L4 ----- Age/ Patient Sex Location Account Attending Physician ----- Hina Schultz/Jaylyn LABELL [id number] Baltazar Cartagena MD FACS ----- SPEC NUM: [id number] RECD: 09/27/24 STATUS: SHOSHANA GOYALVick NUM: [id number] GALLO: 09/26/24 [facility] DR: Baltazar Cartagena MD FACS ENTERED: 09/27/[address]: Santino Laguerre SPEC TYPE: Surgical DEPT: FLORINA WILKERSON ENTERED BY: [id number] RECV BY: [id number] ORDERED: HE/2, Gross/Micro L4 ORDERED: HE/2, Gross/Micro L4 Pathological Diagnosis Rectum, polypectomy: - Hyperplastic polyp. Clinical Information Sigmoid diverticulosis, rectal polyp Gross Description Received in formalin labeled with the patients name, date of , and rectal polyp is a ibrahim-prabhakar, focally erythematous, friable, 0.3 cm in greatest dimension polypoid fragment. The specimen is entirely submitted in a single cassette. (1, ns, [id number] A) J Microscopic Description Microscopic examination is performed. CPT Codes 13272 ----- ----- Specimen: [id number] Received: 09/27/24 Status: SHOSHANA De Leon Num: [id number] Spec Type: Surgical Subm Dr: Baltazar Cartagena MD FACS Tissues: A Colon Biopsy (RECTAL POLYP) Procedures: ANJALI Gross/Micro L4 ----- Patient: Hina Schultz [id number] (Continued) ----- Signed (signature on file) Doug Bush MD 09/28/24 1009 Normal [facility] Ambulatory Visit Summaryon 1 11-05-2023 Ambulatory Visit Summary Ambulatory Visit Summary HINA SCHULTZ :1965 Visit Date:09/04/2024 Ambulatory Visit Instructions Your Care Team Attending Physician - TONY WHITESIDE, Baltazar Townsend Primary Care Physician - Mary WHITESIDE, Joni Referring Physician - Joni Hernandez MD This Is Your Medications List Contact prescribing physician if questions or concerns albuterol (Ventolin HFA 90 mcg/inh Aerosol-Adpt) aspirin (aspirin 325 mg Oral EC Tab) diclofenac (diclofenac sodium 75 mg Oral EC Tab) duloxetine (Cymbalta 60 mg Cap-DR) famotidine (Pepcid 40 mg Tab) fluticasone nasal (Flonase 0.05 mg/inh [place]) fluticasone nasal (Flonase 0.05 mg/inh [place]) formoterol-mometasone (Dulera 100 mcg-5 mcg/inh inhalation aerosol) hydrocortisone-pramoxine topical (hydrocortisone-pramoxine 2.5%-1% rectal cream) lisinopril (lisinopril 40 mg Tab) loratadine-pseudoephedrine (Loratadine-D 24 Hour) pantoprazole (Pantoprazole [address] Tab) simvastatin (simvastatin 20 mg Tab) sucralfate (Carafate 1 gram Tab) tamsulosin (Flomax 0.4 mg Cap) Procedures Performed EGD - Esophagogastroduodenoscopy (09/22/2022), Colonoscopy (09/15/2015), Arthroscopy of knee, Arthroscopy of knee, Cervical laminectomy, Cystoscopy, EGD - Esophagogastroduodenoscopy, Excision of cyst, Lithotripsy, Meniscal repair. Discharge Vitals Heart Rate (Peripheral) 76 Respiratory Rate 16 Blood Pressure 142/104 Height 175.2 cm Height 69 in Weight 105.1 kg Weight 231.706 lb BMI 34.24 Medications What How Much When Instructions Unchanged albuterol (Ventolin HFA 90 mcg/ inh Aerosol-Adpt) 2 Puffs Inhalation Every 4 hours as needed for Shortness of breath or wheezing Contact prescribing physician if questions or concerns Unchanged aspirin (aspirin 325 mg Oral EC Tab) 1 Tablets By Mouth Every day [...] 40 mg Tab) 1 Tablets By Mouth Once a day (at bedtime) Contact prescribing physician if questions or concerns Unchanged fluticasone nasal (Flonase 0.05 mg/ inh [place]) 1 Sprays Nasal Inhalation Every day Contact prescribing physician if questions or concerns Unchanged fluticasone nasal (Flonase 0.05 mg/ inh [place]) 1 Sprays Nasal Inhalation 2 times a [...] prescribing physician if questions or concerns Unchanged pantoprazole (Pantoprazole [address] Tab) 1 Tablets By Mouth Every day Contact prescribing physician if questions or concerns Unchanged simvastatin (simvastatin 20 mg Tab) 1 Tablets By Mouth Once a day (at bedtime) Contact prescribing physician if questions or concerns Unchanged sucralfate (Carafate 1 gram Tab) 1 Tablets By Mouth 2 times a day Contact prescribing physician if questions or concerns Unchanged tamsulosin (Flomax 0.4 mg Cap) 1 Capsules By Mouth Every day Contact prescribing physician if questions or concerns Allergies Lipitor (Muscle cramps) clindamycin (Rash) morphine (Unknown) sulfa drugs (Rash) Problems Ongoing - Any problem that you are currently receiving treatment for. Allergic rhinitis Anemia Anxiety Asthma BMI 34.0-34.9,adult BPH (benign prostatic hyperplasia) Chronic GERD Chronic low back pain Dysphagia Epigastric pain GERD (gastroesophageal reflux disease) History of diverticulitis History of gastritis History of nephrolithiasis HTN (hypertension) Insomnia Neoplasm of uncertain behavior of scalp CEFERINO (obstructive sleep apnea) Paresthesia Prediabetes Seborrheic keratosis Skin tag Transient cerebral ischemia Vitamin D deficiency Patient Survey You may receive a survey via text or e-mail asking about your office visit. Please share your experience with us by completing your survey. We appreciate your feedback and thank you for choosing us for your care. [facility] BNPon 02-10-2023 Natriuretic peptide B (Bld) [Mass/Vol] 13.0 pg/mL Normal <=900.0 [facility] Comment on above: Performed By: #### CMP, BNP #### [facility] [address] [place] [address] Dr. Irene Nina CBC AUTO DIFFon 02-10-2023 BASO # 0.1 103/ul Normal 0.0-0.1 [facility] Comment on above: Performed By: #### PT, DDIM, PTT #### [facility] [address] [address] [address] Irene Nina Basophils/100 WBC (Bld) 0.9 % Normal 0.2-2.0 [facility] Comment on above: Performed By: #### PT, DDIM, PTT #### [facility] [address] [address] [address] Irene Nina EO # 0.4 103/ul Normal 0.0-0.7 [facility] Comment on above: Performed By: #### PT, DDIM, PTT #### [facility] [address] [address] [address] Irene Nina Eosinophils/100 WBC (Bld) 5.2 % Normal 0.9-7.0 [facility] Comment on above: Performed By: #### PT, DDIM, PTT #### [facility] [address] [place] [address] Dr. Irene Nina Erythrocyte distribution width (RBC) [Ratio] 13.2 % Normal 11.0-15.0 [facility] Comment on above: Performed By: #### PT, DDIM, PTT #### [facility] [address] [place] [address] Dr. Irene Nina Hematocrit (Bld) [Volume fraction] 43.4 % Normal 42.0-54.0 [facility] Comment on above: Performed By: #### PT, DDIM, PTT #### [facility] [address] [place] [address] Dr. Irene Nina Hemoglobin (Bld) [Mass/Vol] 14.0 g/dL Normal 14.0-18.0 [facility] Comment on above: Performed By: #### PT, DDIM, PTT #### [facility] [address] [place] [address] Dr. Irene Nina IG # 0.10 10e3/ul Critically high 0.00-0.03 [facility] Comment on above: Performed By: #### PT, DDIM, PTT #### [facility] [address] [place] [address] Dr. Irene Nina IG % 1.3 % Critically high 0.0-0.5 [facility] [place] [facility] Comment on above: Performed By: #### PT, DDIM, PTT #### [facility] [address] [place] [address] Dr. Irene Nina LYMPH # 2.7 103/ul Normal 1.2-3.8 [facility] Comment on above: Performed By: #### PT, DDIM, PTT #### [facility] [address] [place] [address] Dr. Irene Nina Lymphocytes/100 WBC (Bld) 34.8 % Normal 20.5-60.0 [facility] Comment on above: Performed By: #### PT, DDIM, PTT #### [facility] [address] [place] [address] Dr. Irene Nina MANUAL DIFF REQ NO Normal [facility] [place] [facility] Comment on above: Performed By: #### PT, DDIM, PTT #### [facility] [address] [place], [place] [id number] Dr. Irene Nina MCH (RBC) [Entitic mass] 27.7 pg Normal 25.9-34.0 [facility] Comment on above: Performed By: #### PT, DDIM, PTT #### [facility] [address] [place] [address] Dr. Irene Nina MCHC (RBC) [Mass/Vol] 32.3 g/dL Normal 29.9-35.2 [facility] Comment on above: Performed By: #### PT, DDIM, PTT #### [facility] [address] [place] [address] Dr. Irene Nina MCV (RBC) [Entitic vol] 85.8 fL Normal 80.0-94.0 [facility] Comment on above: Performed By: #### PT, DDIM, PTT #### [facility] [address] [place] [address] Dr. Irene Nina MONO # 0.6 103/ul Normal 0.3-0.8 [facility] Comment on above: Performed By: #### PT, DDIM, PTT #### [facility] [address] [place] [address] Dr. Irene Nina Monocytes/100 WBC (Bld) 7.7 % Normal 1.7-12.0 [facility] Comment on above: Performed By: #### PT, DDIM, PTT #### [facility] [address] [place] [address] Dr. Irene Nina NEUT # 3.9 103/ul Normal 1.4-6.5 [facility] Comment on above: Performed By: #### PT, DDIM, PTT #### [facility] [address] [place] [address] Dr. Irene Nina Neutrophils/100 WBC (Bld) 50.1 % Normal 43.0-75.0 [facility] Comment on above: Performed By: #### PT, DDIM, PTT #### [facility] [address] [place] [address] Dr. Irene Nina Platelet mean volume (Bld) [Entitic vol] 9.5 fL Normal 9.5-13.5 [facility] Comment on above: Performed By: #### PT, DDIM, PTT #### [facility] [address] [place], [place] [address] Dr. Irene Nina PLT 239 103/ul Normal 150-450 [facility] Comment on above: Performed By: #### PT, DDIM, PTT #### [facility] [address] [place], [place] [address] Dr. Irene Nina RBC 5.06 106/ul Normal 4.70-6.10 [facility] Comment on above: Performed By: #### PT, DDIM, PTT #### [facility] [address] [place], [place] [address] Dr. Irene Nina WBC 7.8 103/ul Normal 4.0-11.0 [facility] Comment on above: Performed By: #### PT, DDIM, PTT #### [facility] [address] [place], [place] [address] Dr. Irene Nina ECHOCARDIO M/2D COMPLETEon 0 02-10-2023 ECHOCARDIO M/2D COMPLETE Patient: HINA SCHULTZ Exam Date: 02/10/2023 : 1965 Gender:M Ordering : DR JONI HERNANDEZ . Admission #: [id number] Family : Order #: [id number] CLICK HERE TO VIEW EXAM ECHOCARDIOGRAM REPORT [...] Suarez M.D. on 02/13/2023 at 14:57 Normal [facility] PROF 14(COMP METB)on 023 Albumin [Mass/Vol] 3.5 g/dL Normal 3.4-5.0 [facility] Comment on above: Performed By: #### CMP, BNP #### [facility] [address] [place] [address] Dr. Irene Nina Albumin/Globulin [Mass ratio] 1.1 {ratio} Normal [facility] Comment on above: Performed By: #### CMP, BNP #### [facility] [address] [place] [address] Dr. Irene Nina ALP [Catalytic activity/Vol] 63 U/L Normal 46-116 [facility] Comment on above: Performed By: #### CMP, BNP #### [facility] [address] [place] [address] Dr. Irene Nina ALT [Catalytic activity/Vol] 72 U/L Critically high 16-63 [facility] Comment on above: Performed By: #### CMP, BNP #### [facility] [address] [place] [address] Dr. Irene Nina Anion gap [Moles/Vol] 10.9 mmol/L Normal [facility] Comment on above: Performed By: #### CMP, BNP #### [facility] [address] [place] [address] Dr. Irene Nina AST [Catalytic activity/Vol] 35 U/L Normal 15-37 [facility] Comment on above: Performed By: #### CMP, BNP #### [facility] [address] [place] [address] Dr. Irene Nina Bilirubin [Mass/Vol] 0.4 mg/dL Normal 0.2-1.0 [facility] Comment on above: Performed By: #### CMP, BNP #### [facility] [address] [place] [address] Dr. Irene Nina Calcium [Mass/Vol] 9.2 mg/dL Normal 8.5-10.1 [facility] Comment on above: Performed By: #### CMP, BNP #### [facility] [address] [place] [address] Dr. Irene Nina Chloride [Moles/Vol] 105 mmol/L Normal 98-107 [facility] Comment on above: Performed By: #### CMP, BNP #### [facility] [address] [place] [address] Dr. Irene Nina CO2 [Moles/Vol] 30.2 mmol/L Normal 21.0-32.0 [facility] Comment on above: Performed By: #### CMP, BNP #### [facility] [address] [place] [address] Dr. Irene Nina Creatinine [Mass/Vol] 1.43 mg/dL Critically high 0.70-1.30 [facility] Comment on above: Performed By: #### CMP, BNP #### [facility] [address] [place] [address] Dr. Irene Nina EGFR-AF ERITREAN >60 Normal >=60 [facility] Comment on above: Performed By: #### CMP, BNP #### [facility] [address] [address] [address] Irene Nina EGFR-NON AF ERITREAN 51 mL/min/1.73m2 Critically low >=60 [facility] Comment on above: Performed By: #### CMP, BNP #### [facility] [address] [address] [address] Irene Nina Globulin (S) [Mass/Vol] 3.3 g/dL Normal [facility] Comment on above: Performed By: #### CMP, BNP #### [facility] [address] [address] [address] Irene Nina Glucose [Mass/Vol] 100 mg/dL Normal 74-106 [facility] Comment on above: Performed By: #### CMP, BNP #### [facility] [address] [address] [address] Irene Nina Potassium [Moles/Vol] 4.1 mmol/L Normal 3.5-5.1 [facility] Comment on above: Performed By: #### CMP, BNP #### [facility] [address] [address] [address] Irene Nina Protein [Mass/Vol] 6.8 g/dL Normal 6.4-8.2 [facility] Comment on above: Performed By: #### CMP, BNP #### [facility] [address] [address] [address] Irene Nina Sodium [Moles/Vol] 142 mmol/L Normal 136-145 [facility] Comment on above: Performed By: #### CMP, BNP #### [facility] [address] [address] [address] Irene Nina Urea nitrogen [Mass/Vol] 14.0 mg/dL Normal 7.0-18.0 [facility] Comment on above: Performed By: #### CMP, BNP #### [facility] [address] [address] [address] Irene Nina Urea nitrogen/Creatin ine [Mass ratio] 9.8 mg/mg Normal [facility] Comment on above: Performed By: #### CMP, BNP #### [facility] [address] [place] [address] Dr. Irene Nina BNPon 02-09-2023 Natriuretic peptide B (Bld) [Mass/Vol] 20.0 pg/mL Normal <=900.0 [facility] Comment on above: Performed By: #### CMP, BNP, HSTROPN ### # [facility] [address] [place] [address] Dr. Irene Nina CARDIAC MP 3-6on 3 CK [Catalytic activity/Vol] 117 U/L Normal 39-308 [facility] Comment on above: Performed By: #### PT, DDIM, PTT #### [facility] [address] [place] [address] Dr. Irene Nina CK.MB [Mass/Vol] 0.99 ng/mL Normal <=3.60 [facility] Comment on above: Performed By: #### PT, DDIM, PTT #### [facility] [address] [place] [address] Dr. Irene Nina HSTROP 9.6 pg/mL Normal 4.0-76.1 [facility] Comment on above: Result Comment: CUT-OFF POINTS HAVE BEEN ESTABLISHED BASED ON THE FOURTH UNIVERSAL DEFINITIONS OF MYOCARDIAL INFARCTION. THE UPPER REFERENCE LIMIT (URL) OF TROPONIN, DEFINED THE 99TH PERCENTILE OF cTnI DISTRIBUTION IN A REFERENCE POPULATION, HAS BEEN CONFIRMED THE DECISION THRESHOLD FOR [place] DIAGNOSIS. Performed By: #### P T, DDIM, PTT #### [facility] [address] [place] [address] Dr. Irene Nina CK [Catalytic activity/Vol] 132 U/L Normal 39-308 [facility] Comment on above: Performed By: #### PT, DDIM, PTT #### [facility] [address] [place] [address] Dr. Irene Nina CK.MB [Mass/Vol] 1.10 ng/mL Normal <=3.60 [facility] Comment on above: Performed By: #### PT, DDIM, PTT #### [facility] [address] [place] [address] Dr. Irene Nina HSTROP 10.2 pg/mL Normal 4.0-76.1 [facility] Comment on above: Result Comment: CUT-OFF POINTS HAVE BEEN ESTABLISHED BASED ON THE FOURTH UNIVERSAL DEFINITIONS OF MYOCARDIAL INFARCTION. THE UPPER REFERENCE LIMIT (URL) OF TROPONIN, DEFINED THE 99TH PERCENTILE OF cTnI DISTRIBUTION IN A REFERENCE POPULATION, HAS BEEN CONFIRMED THE DECISION THRESHOLD FOR [place] DIAGNOSIS. Performed By: #### P T, DDIM, PTT #### [facility] [address] [place] [address] Dr. Irene Nina CBC AUTO DIFFon 02-09-2023 BASO # 0.1 103/ul Normal 0.0-0.1 [facility] Comment on above: Performed By: #### PT, DDIM, PTT #### [facility] [address] [place] [address] Dr. Irene Nina Basophils/100 WBC (Bld) 1.1 % Normal 0.2-2.0 [facility] Comment on above: Performed By: #### PT, DDIM, PTT #### [facility] [address] [place] [address] Dr. Irene Nina EO # 0.4 103/ul Normal 0.0-0.7 [facility] Comment on above: Performed By: #### PT, DDIM, PTT #### [facility] [address] [place] [address] Dr. Irene Nina Eosinophils/100 WBC (Bld) 5.0 % Normal 0.9-7.0 [facility] Comment on above: Performed By: #### PT, DDIM, PTT #### [facility] [address] [place] [address] Dr. Irene Nina Erythrocyte distribution width (RBC) [Ratio] 13.2 % Normal 11.0-15.0 [facility] Comment on above: Performed By: #### PT, DDIM, PTT #### [facility] [address] [place] [address] Dr. Irene Nina Hematocrit (Bld) [Volume fraction] 44.8 % Normal 42.0-54.0 [facility] Comment on above: Performed By: #### PT, DDIM, PTT #### [facility] [address] [place] [address] Dr. Irene Nina Hemoglobin (Bld) [Mass/Vol] 14.6 g/dL Normal 14.0-18.0 [facility] Comment on above: Performed By: #### PT, DDIM, PTT #### [facility] [address] [place] [address] Dr. Irene Nina IG # 0.05 10e3/ul Critically high 0.00-0.03 [facility] Comment on above: Performed By: #### PT, DDIM, PTT #### [facility] [address] [place] [address] Dr. Irene Nina IG % 0.7 % Critically high 0.0-0.5 [facility] Comment on above: Performed By: #### PT, DDIM, PTT #### [facility] [address] [place] [address] Dr. Irene Nina LYMPH # 2.1 103/ul Normal 1.2-3.8 [facility] Comment on above: Performed By: #### PT, DDIM, PTT #### [facility] [address] [place] [address] Dr. Irene Nina Lymphocytes/100 WBC (Bld) 28.6 % Normal 20.5-60.0 [facility] Comment on above: Performed By: #### PT, DDIM, PTT #### [facility] [address] [place] [address] Dr. Irene Nina MANUAL DIFF REQ NO Normal [facility] Comment on above: Performed By: #### PT, DDIM, PTT #### [facility] [address] [place] [address] Dr. Irene Nina MCH (RBC) [Entitic mass] 28.0 pg Normal 25.9-34.0 [facility] Comment on above: Performed By: #### PT, DDIM, PTT #### [facility] [address] [place] [address] Dr. Irene Nina MCHC (RBC) [Mass/Vol] 32.6 g/dL Normal 29.9-35.2 [facility] Comment on above: Performed By: #### PT, DDIM, PTT #### [facility] [address] [place] [address] Dr. Irene Nina MCV (RBC) [Entitic vol] 85.8 fL Normal 80.0-94.0 [facility] Comment on above: Performed By: #### PT, DDIM, PTT #### [facility] [address] [place] [address] Dr. Irene Nina MONO # 0.5 103/ul Normal 0.3-0.8 [facility] Comment on above: Performed By: #### PT, DDIM, PTT #### [facility] [address] [place] [address] Dr. Irene Nina Monocytes/100 WBC (Bld) 6.5 % Normal 1.7-12.0 [facility] Comment on above: Performed By: #### PT, DDIM, PTT #### [facility] [address] [place] [address] Dr. Irene Nina NEUT # 4.2 103/ul Normal 1.4-6.5 [facility] Comment on above: Performed By: #### PT, DDIM, PTT #### [facility] [address] [place] [address] Dr. Irene Nina Neutrophils/100 WBC (Bld) 58.1 % Normal 43.0-75.0 [facility] Comment on above: Performed By: #### PT, DDIM, PTT #### [facility] [address] [place] [address] Dr. Irene Nina Platelet mean volume (Bld) [Entitic vol] 9.8 fL Normal 9.5-13.5 [facility] Comment on above: Performed By: #### PT, DDIM, PTT #### [facility] [address] [place] [address] Dr. Irene Nina PLT 245 103/ul Normal 150-450 [facility] Comment on above: Performed By: #### PT, DDIM, PTT #### [facility] [address] [place] [address] Dr. Irene Nina RBC 5.22 106/ul Normal 4.70-6.10 [facility] Comment on above: Performed By: #### PT, DDIM, PTT #### [facility] [address] [address] [address] Irene Nina WBC 7.2 103/ul Normal 4.0-11.0 [facility] Comment on above: Performed By: #### PT, DDIM, PTT #### [facility] [address] [place] [address] Dr. Irene Nina D-DIMERon 02-09-2023 D-DIMER 0.51 mg/L FEU Normal <=0.59 [facility] Comment on above: Performed By: #### PT, DDIM, PTT #### [facility] [address] [place] [address] Dr. Irene Nina D-DIMER COMMENTS SEE BELOW Normal [facility] Comment on above: Result Comment: Increases in [...] By: #### P T, DDIM, PTT #### [facility] [address] [place] [address] Dr. Irene Nina PROF 14(COMP METB)on 023 Albumin [Mass/Vol] 3.9 g/dL Normal 3.4-5.0 [facility] Comment on above: Performed By: #### CMP, BNP, HSTROPN ### # [facility] [address] [place] [address] Dr. Irene Nina Albumin/Globulin [Mass ratio] 1.1 {ratio} Normal [facility] Comment on above: Performed By: #### CMP, BNP, HSTROPN ### # [facility] [address] [address] [address] Irene Nina ALP [Catalytic activity/Vol] 67 U/L Normal 46-116 [facility] Comment on above: Performed By: #### CMP, BNP, HSTROPN ### # [facility] [address] [address] [address] Irene Nina ALT [Catalytic activity/Vol] 68 U/L Critically high 16-63 [facility] Comment on above: Performed By: #### CMP, BNP, HSTROPN ### # [facility] [address] [address] [address] Irene Nina Anion gap [Moles/Vol] 9.4 mmol/L Normal [facility] Comment on above: Performed By: #### CMP, BNP, HSTROPN ### # [facility] [address] [place] [address] Dr. Irene Nina AST [Catalytic activity/Vol] 30 U/L Normal 15-37 [facility] Comment on above: Performed By: #### CMP, BNP, HSTROPN ### # [facility] [address] [address] [address] Irene Nina Bilirubin [Mass/Vol] 0.5 mg/dL Normal 0.2-1.0 [facility] Comment on above: Performed By: #### CMP, BNP, HSTROPN ### # [facility] [address] [address] [address] Irene Nina Calcium [Mass/Vol] 9.2 mg/dL Normal 8.5-10.1 [facility] Comment on above: Performed By: #### CMP, BNP, HSTROPN ### # [facility] [address] [address] [address] Irene Nina Chloride [Moles/Vol] 105 mmol/L Normal 98-107 [facility] Comment on above: Performed By: #### CMP, BNP, HSTROPN ### # [facility] [address] [address] [address] Irene Nina CO2 [Moles/Vol] 28.6 mmol/L Normal 21.0-32.0 [facility] Comment on above: Performed By: #### CMP, BNP, HSTROPN ### # [facility] [address] [place] [address] Dr. Irene Nina Creatinine [Mass/Vol] 1.32 mg/dL Critically high 0.70-1.30 [facility] Comment on above: Performed By: #### CMP, BNP, HSTROPN ### # [facility] [address] [place] [address] Dr. Irene Nina EGFR-AF ERITREAN >60 Normal >=60 [facility] Comment on above: Performed By: #### CMP, BNP, HSTROPN ### # [facility] [address] [place] [address] Dr. Irene Nina EGFR-NON AF ERITREAN 56 mL/min/1.73m2 Critically low >=60 [facility] Comment on above: Performed By: #### CMP, BNP, HSTROPN ### # [facility] [address] [place] [address] Dr. Irene Nina Globulin (S) [Mass/Vol] 3.6 g/dL Normal [facility] Comment on above: Performed By: #### CMP, BNP, HSTROPN ### # [facility] [address] [place] [address] Dr. Irene Nina Glucose [Mass/Vol] 123 mg/dL Critically high 74-106 [facility] Comment on above: Performed By: #### CMP, BNP, HSTROPN ### # [facility] [address] [place] [address] Dr. Irene Nina Potassium [Moles/Vol] 4.0 mmol/L Normal 3.5-5.1 [facility] Comment on above: Performed By: #### CMP, BNP, HSTROPN ### # [facility] [address] [place] [address] Dr. Irene Nina Protein [Mass/Vol] 7.5 g/dL Normal 6.4-8.2 [facility] Comment on above: Performed By: #### CMP, BNP, HSTROPN ### # [facility] [address] [place] [address] Dr. Irene Nina Sodium [Moles/Vol] 139 mmol/L Normal 136-145 [facility] Comment on above: Performed By: #### CMP, BNP, HSTROPN ### # [facility] [address] [place] [address] Dr. Irene Nina Urea nitrogen [Mass/Vol] 14.0 mg/dL Normal 7.0-18.0 [facility] Comment on above: Performed By: #### CMP, BNP, HSTROPN ### # [facility] [address] [place] [address] Dr. Irene Nina Urea nitrogen/Creatin ine [Mass ratio] 10.6 mg/mg Normal [facility] Comment on above: Performed By: #### CMP, BNP, HSTROPN ### # [facility] [address] [place] [address] Dr. Irene Nina PROTIMEon 02-09-2023 INR Coag (PPP) [Relative time] 0.99 {INR} Normal [facility] Comment on above: Performed By: #### PT, DDIM, PTT #### [facility] [address] [place] [address] Dr. Irene Nina INR GUIDELINES SEE BELOW Normal [facility] Comment on above: Result Comment: DESIRED INR: 2.0 - 3.0 C ONDITIONS NOT LISTED BELOW 2.5 - 3.5 FOR PROSTHETIC HEART VALVE REPLACEMENT 2.5 - 3.5 RECURRENT THROMBOSIS Performed By: #### P T, DDIM, PTT #### [facility] [address] [place] [address] Dr. Irene Nina PT Coag (PPP) [Time] 10.5 s Normal 9.0-11.6 [facility] Comment on above: Performed By: #### PT, DDIM, PTT #### [facility] [address] [place] [address] Dr. Irene Nina PTTon 02-09-2023 aPTT Coag (Bld) [Time] 26.9 s Normal 22.3-36.2 [facility] Comment on above: Performed By: #### PT, DDIM, PTT #### [facility] [address] [place], [place] [address] Dr. Irene Nina TROPONIN, HIGH SENSITIVITYon 02-09-2023 HSTROP 10.0 pg/mL Normal 4.0-76.1 [facility] Comment on above: Result Comment: CUT-OFF POINTS HAVE BEEN ESTABLISHED BASED ON THE FOURTH UNIVERSAL DEFINITIONS OF MYOCARDIAL INFARCTION. THE UPPER REFERENCE LIMIT (URL) OF TROPONIN, DEFINED THE 99TH PERCENTILE OF cTnI DISTRIBUTION IN A REFERENCE POPULATION, HAS BEEN CONFIRMED THE DECISION THRESHOLD FOR [place] DIAGNOSIS. Performed By: #### C MP, BNP, HSTROPN #### [facility] [address] [place], [place] [address] Dr. Irene Nina XR CHEST 1 Von [...] JULIEN OLSON Date: 2023-02-09 16:15 Normal [facility] Covid-19 PCR (CVDTB)on 08-21 SARS-CoV-2 (COVID-19) RNA LUC+probe Ql (Unsp spec) Not detected Normal NOT DETECTED [facility] Comment on above: Result Comment: When diagnostic [...] for this test is supported by the [employer] T[employer] of Health and Human Service's declaration that [...] By: #### P T, DDIM, PTT #### [facility] [address] [place] [address] Dr. Irene Nina INFLUENZA A AND B AGon 09-17 [facility] SEE BELOW Normal [facility] Comment on above: Result Comment: Negative for Flu A prote in angiten. Infection due to Flu A cannot be ruled out. Flu A angiten in the sample may be below the detection limit of the test. Performed By: #### P T, DDIM, PTT #### [facility] [address] [place] [address] Dr. Irene Nina INFLUBNEGH SEE BELOW Normal [facility] Comment on above: Result Comment: Negative for Flu B prote in antigen. Infection due to Flu B cannot be ruled out. Flu B antigen in the sample may be below the detection limit of the test. Performed By: #### P T, DDIM, PTT #### [facility] [address] [place] [address] Dr. Irene Nina INFLUENZA A AG Negative Normal NEGATIVE SEE COMMENT [facility] Comment on above: Performed By: #### PT, DDIM, PTT #### [facility] [address] [place] [address] Dr. Irene Nina INFLUENZA B AG Negative Normal NEGATIVE SEE COMMENT [facility] Comment on above: Performed By: #### PT, DDIM, PTT #### [facility] [address] [place] [address] Dr. Irene Nina VIT D 25-OH [employer]ABCOR[facility]on 2021 Vitamin D, 25-Hydroxy 38.8 ng/mL Normal 30.0-100.0 [facility] Comment on above: Result Comment: Vitamin D deficiency has been defined by the [place] of [employer] and an Endocrine Society practice guideline as a level of serum 25-OH vitamin D less than 20 ng/mL (1,2). The Endocrine Society went on to further define vitamin D insufficiency as a level between 21 and 29 ng/mL (2). 1. IOM ([place] of [employer]). 2010. Dietary reference intakes for calcium and D. [place]: The National Academies Press. 2. Liz MF, Cas LORA, Doreen COLE, et al. Evaluation, treatment, and prevention of vitamin D deficiency: an Endocrine Society clinical practice guideline. JCEM. 2010; 96(7):1911-30. Performed By: #### V ITADLC #### [facility] [address] [place] [address] Dr. Irene Nina CBC AUTO DIFFon 06-02-2022 BASO # 0.1 103/ul Normal 0.0-0.1 [facility] Comment on above: Performed By: #### CBC #### [facility] [address] [place] [address] Dr. Irene Nina Basophils/100 WBC (Bld) 1.1 % Normal 0.2-2.0 [facility] Comment on above: Performed By: #### CBC #### [facility] [address] [place] [address] Dr. Irene Nina EO # 0.3 103/ul Normal 0.0-0.7 [facility] Comment on above: Performed By: #### CBC #### [facility] [address] [place] [address] Dr. Irene Nina Eosinophils/100 WBC (Bld) 3.6 % Normal 0.9-7.0 [facility] Comment on above: Performed By: #### CBC #### [facility] [address] [place] [address] Dr. Irene Nina Erythrocyte distribution width (RBC) [Ratio] 13.1 % Normal 11.0-15.0 [facility] Comment on above: Performed By: #### CBC #### [facility] [address] [place] [address] Dr. Irene Nina Hematocrit (Bld) [Volume fraction] 44.4 % Normal 42.0-54.0 [facility] Comment on above: Performed By: #### CBC #### [facility] [address] [place] [address] Dr. Irene Nina Hemoglobin (Bld) [Mass/Vol] 14.8 g/dL Normal 14.0-18.0 [facility] Comment on above: Performed By: #### CBC #### [facility] [address] [place] [address] Dr. Irene Nina IG # 0.13 10e3/ul Critically high 0.00-0.03 [facility] Comment on above: Performed By: #### CBC #### [facility] [address] [address] [address] Irene Nina IG % 1.8 % Critically high 0.0-0.5 [facility] Comment on above: Performed By: #### CBC #### [facility] [address] [place] [address] Dr. Irene Nina LYMPH # 1.9 103/ul Normal 1.2-3.8 [facility] Comment on above: Performed By: #### CBC #### [facility] [address] [place] [address] Dr. Irene Nina Lymphocytes/100 WBC (Bld) 25.5 % Normal 20.5-60.0 [facility] Comment on above: Performed By: #### CBC #### [facility] [address] [place] [address] Dr. Irene Nina MANUAL DIFF REQ NO Normal [facility] Comment on above: Performed By: #### CBC #### [facility] [address] [place] [address] Dr. Irene Nina MCH (RBC) [Entitic mass] 28.6 pg Normal 25.9-34.0 [facility] Comment on above: Performed By: #### CBC #### [facility] [address] [place] [address] Dr. Irene Nina MCHC (RBC) [Mass/Vol] 33.3 g/dL Normal 29.9-35.2 [facility] Comment on above: Performed By: #### CBC #### [facility] [address] [place] [address] Dr. Irene Nina MCV (RBC) [Entitic vol] 85.9 fL Normal 80.0-94.0 [facility] Comment on above: Performed By: #### CBC #### [facility] [address] [address] [address] Irene Nina MONO # 0.4 103/ul Normal 0.3-0.8 [facility] Comment on above: Performed By: #### CBC #### [facility] [address] [address] [address] Irene Nina Monocytes/100 WBC (Bld) 5.2 % Normal 1.7-12.0 [facility] Comment on above: Performed By: #### CBC #### [facility] [address] [place] [address] Dr. Irene Nina NEUT # 4.6 103/ul Normal 1.4-6.5 [facility] [facility] Comment on above: Performed By: #### CBC #### [facility] [address] [place] [address] Dr. Irene Nina Neutrophils/100 WBC (Bld) 62.8 % Normal 43.0-75.0 [facility] Comment on above: Performed By: #### CBC #### [facility] [address] [place] [address] Dr. Irene Nina Platelet mean volume (Bld) [Entitic vol] 10.1 fL Normal 9.5-13.5 [facility] Comment on above: Performed By: #### CBC #### [facility] [address] [place] [address] Dr. Irene Nina PLT 240 103/ul Normal 150-450 [facility] Comment on above: Performed By: #### CBC #### [facility] [address] [place] [address] Dr. Irene Nina RBC 5.17 106/ul Normal 4.70-6.10 [facility] Comment on above: Performed By: #### CBC #### [facility] [address] [place] [address] Dr. Irene Nina WBC 7.3 103/ul Normal 4.0-11.0 [facility] Comment on above: Performed By: #### CBC #### [facility] [address] [address] [address] Irene Nina IRONon 06-02-2022 Iron [Mass/Vol] 100.0 ug/dL Normal 65.0-175.0 [facility] Comment on above: Performed By: #### PT, DDIM, PTT #### [facility] [address] [address] [address] Irene Nina PROF 14(COMP METB)on 022 Albumin [Mass/Vol] 4.2 g/dL Normal 3.4-5.0 [facility] Comment on above: Performed By: #### PT, DDIM, PTT #### [facility] [address] [address] [address] Irene Nina Albumin/Globulin [Mass ratio] 1.4 {ratio} Normal [facility] Comment on above: Performed By: #### PT, DDIM, PTT #### [facility] [address] [place] [address] Dr. Irene Nina ALP [Catalytic activity/Vol] 57 U/L Normal 46-116 [facility] Comment on above: Performed By: #### PT, DDIM, PTT #### [facility] [address] [place] [address] Dr. Irene Nina ALT [Catalytic activity/Vol] 60 U/L Normal 16-63 [facility] Comment on above: Performed By: #### PT, DDIM, PTT #### [facility] [address] [address] [address] Irene Nina Anion gap [Moles/Vol] 12.9 mmol/L Normal [facility] Comment on above: Performed By: #### PT, DDIM, PTT #### [facility] [address] [address] [address] Irene Nina AST [Catalytic activity/Vol] 43 U/L Critically high 15-37 [facility] Comment on above: Performed By: #### PT, DDIM, PTT #### [facility] [address] [place] [address] Dr. Irene Nina Bilirubin [Mass/Vol] 0.8 mg/dL Normal 0.2-1.0 [facility] Comment on above: Performed By: #### PT, DDIM, PTT #### [facility] [address] [place] [address] Dr. Irene Nina Calcium [Mass/Vol] 9.3 mg/dL Normal 8.5-10.1 [facility] Comment on above: Performed By: #### PT, DDIM, PTT #### [facility] [address] [place] [address] Dr. Irene Nina Chloride [Moles/Vol] 104 mmol/L Normal 98-107 [facility] Comment on above: Performed By: #### PT, DDIM, PTT #### [facility] [address] [place] [address] Dr. Irene Nina CO2 [Moles/Vol] 24.7 mmol/L Normal 21.0-32.0 [facility] Comment on above: Performed By: #### PT, DDIM, PTT #### [facility] [address] [place] [address] Dr. Irene Nina Creatinine [Mass/Vol] 1.00 mg/dL Normal 0.70-1.30 [facility] Comment on above: Performed By: #### PT, DDIM, PTT #### [facility] [address] [place] [address] Dr. Irene Nina EGFR-AF ERITREAN >60 Normal >=60 [facility] Comment on above: Performed By: #### PT, DDIM, PTT #### [facility] [address] [place] [address] Dr. Irene Nina EGFR-NON AF ERITREAN >60 Normal >=60 [facility] Comment on above: Performed By: #### PT, DDIM, PTT #### [facility] [address] [place] [address] Dr. Irene Nina Globulin (S) [Mass/Vol] 2.9 g/dL Normal [facility] Comment on above: Performed By: #### PT, DDIM, PTT #### [facility] [address] [place] [address] Dr. Irene Nnia Glucose [Mass/Vol] 145 mg/dL Critically high 74-106 [facility] Comment on above: Performed By: #### PT, DDIM, PTT #### [facility] [address] [place] [address] Dr. Irene Nina Potassium [Moles/Vol] 4.6 mmol/L Normal 3.5-5.1 [facility] Comment on above: Result Comment: specimen slightly hemoly zed Performed By: #### P T, DDIM, PTT #### [facility] [address] [place] [address] Dr. Irene Nina Protein [Mass/Vol] 7.1 g/dL Normal 6.4-8.2 [facility] Comment on above: Performed By: #### PT, DDIM, PTT #### [facility] [address] [place] [address] Dr. Irene Nina Sodium [Moles/Vol] 137 mmol/L Normal 136-145 [facility] Comment on above: Performed By: #### PT, DDIM, PTT #### [facility] [address] [place] [address] Dr. Irene Nina Urea nitrogen [Mass/Vol] 12.0 mg/dL Normal 7.0-18.0 [facility] Comment on above: Performed By: #### PT, DDIM, PTT #### [facility] [address] [place] [address] Dr. Irene Nina Urea nitrogen/Creatin ine [Mass ratio] 12.0 mg/mg Normal [facility] Comment on above: Performed By: #### PT, DDIM, PTT #### [facility] [address] [place] [address] Dr. Irene Nina VIT B12 AND FOLATEon 022 Cobalamin (Vitamin B12) [Mass/Vol] 436.0 pg/mL Normal 193.0-986.0 [facility] Comment on above: Performed By: #### PT, DDIM, PTT #### [facility] [address] [place] [address] Dr. Irene Nina FOLATE 18.30 ng/mL Normal 8.60-58.90 [facility] Comment on above: Performed By: #### PT, DDIM, PTT #### [facility] [address] [place] [address] Dr. Irene Nina Vital Signs Date Time Vital Sign Value Performing Clinician Manolo rubalcava 09-04-2024 15:28-0500 Blood Pressure Location Baltazar NILL [facility] 09-04-2024 15:28-0500 Diastolic blood pressure 104 mm[Hg] Baltazar NILL [facility] 09-04-2024 15:28-0500 Heart rate 76 /min Baltazar NILL [facility] [facility] 09-04-2024 15:28-0500 Respiratory rate 16 /min Baltazar NILL [facility] 09-04-2024 15:28-0500 Systolic blood pressure 142 mm[Hg] Baltazar NILL [facility] [facility] 08-27-2022 13:16-0500 Blood Pressure Location Baltazar NILL [facility] 08-27-2022 13:16-0500 Diastolic blood pressure 84 mm[Hg] Baltazar NILL [facility] 08-27-2022 13:16-0500 Heart rate 76 /min Baltazar NILL [facility] 08-27-2022 13:16-0500 Respiratory rate 16 /min Baltazar NILL [facility] 08-27-2022 13:16-0500 Systolic blood pressure 118 mm[Hg] Baltazar NILL [facility] 07-14-2022 09:48-0400 Diastolic blood pressure 106 mm[Hg] MD Joni Hernandez Work Phone: [facility] 07-14-2022 09:48-0400 Heart rate 108 /min MD Joni Hernandez Work Phone: [facility] 07-14-2022 09:48-0400 Respiratory rate 20 /min MD Joni Hernandez Work Phone: [facility] 07-14-2022 09:48-0400 SaO2% (BldA) [Mass fraction] 95 % MD Joni Hernandez Work Phone: [facility] 07-14-2022 09:48-0400 Systolic blood pressure 186 mm[Hg] MD Joni Hernandez Work Phone: [facility] 07-14-2022 09:47-0400 Body height 175.26 cm MD Joni Hernandez Work Phone: [facility] 07-14-2022 09:47-0400 Body weight 91.62 kg MD Joni Hernandez Work Phone: [facility] Encounters Encounter Date Encounter Type Care Provider Facility Start: 10-10-2024 End: 10-10-2024 ambulatory Baltazar CARTAGENA Facility:[facility] Start: 10-10-2024 End: 10-10-2024 Patient encounter procedure Baltazar CARTAGENA [facility] [place] Start: 09-26-2024 End: 09-26-2024 ambulatory Joni Hernandez MD Work Phone: [facility] Work Phone: Start: 09-26-2024 End: 09-26-2024 Departed Referred Joni Hernandez MD Work Phone: [facility] Start: 09-26-2024 End: 09-26-2024 ambulatory Baltazar R NILL Facility:[id number] Start: 09-04-2024 End: 09-04-2024 ambulatory Baltazar R NILL Facility: [place] Start: 09-04-2024 End: 09-04-2024 Patient encounter procedure Baltazar SHAWL [facility] [place] Start: 02-09-2023 End: 02-10-[address] JONI HERNANDEZ . Facility:[facility] Start: 10-28-2022 End: 10-28-[address] PATSY ORELLANA . Facility:[facility] Start: 10-26-2022 End: 10-27-[address] JONI HERNANDEZ . Facility:[facility] Start: 10-19-2022 End: 10-19-[address] BALTAZAR CARTAGENA . Facility:[facility] Start: 10-01-2022 End: 10-01-2022 Patient encounter procedure Baltazar CARTAGENA General Surgery [facility] Start: 09-23-2022 Encounter for preprocedural laboratory examination DR JONI HERNANDEZ . [facility] Start: 09-22-2022 End: 09-22-[address] BALTAZAR CARTAGENA . Facility:[facility] Start: 09-17-2022 End: 09-18-2022 Encounter for preprocedural laboratory examination DR JONI HERNANDEZ . Facility:[facility] Start: 09-17-2022 End: 09-18-[address] JONI HERNANDEZ . Facility:[facility] Start: 08-27-2022 End: 08-27-2022 Patient encounter procedure Baltazar CARTAGENA General Surgery [facility] [place] Start: 07-14-2022 End: 07-14-2022 ambulatory MD Joni Hernandez Work Phone: [facility] Work Phone: Start: 07-14-2022 End: 07-14-2022 Patient encounter procedure MD Joni Hernandez Work Phone: [facility] Start: 06-22-2022 End: 06-22-2022 ambulatory MD Joni Hernandez Work Phone: [facility] Work Phone: Start: 06-22-2022 End: 06-22-2022 Patient encounter procedure MD Joni Hernandez Work Phone: [facility] [place] Start: 06-03-2022 End: 06-04-[address] JONI HERNANDEZ . Facility: Start: 06-02-2022 End: 06-03-[address] JONI HERNANDEZ . Facility: Procedures Date Procedure Procedure Detail Performing Clinician Start: 09-26-2024 Colonoscopy Baltazar NI LL Start: 09-22-2022 Esophagogastroduodenoscopy Baltazar NILL Start: 07-14-2022 XR pre/post mri xray MD Joni Hernandez Work Phone: Start: 07-14-2022 MRI of left knee MD All Hernandez Work Phone: Start: 09-15-2015 Colonoscopy Baltazar NI LL Arthroscopy of knee Baltazar NILL Arthroscopy of knee Baltazar NILL Cervical laminectomy Baltazar NILL Colonoscopy Baltazar NILL Cystoscopy Baltazar NILL Esophagogastroduodenoscopy M ichael NILL Excision of cyst Baltazar NIL L Lithotripsy Baltazar NILL Repair of meniscus Baltazar N ILL Immunizations Immunization Date Immunization Notes Care Provider Fa mary NEGATED: Highlighted row has not occurred!08-27-2022 influenza virus vaccine, unspecified formulation Baltazar NILL General Surgery [facility] NEGATED: Highlighted row has not occurred!10-30-2019 influenza virus vaccine, live, attenuated, for intranasal use Baltazar NILL [facility] [place] Payers Date Payer Category Payer Self-pay [id number] 1965 Unknown [id number] 2.16.84 [id number] 1965 Unknown [id number] 2.16.84 [id number] 1963 Unknown [id number] 2.16.84 [id number] 1963 Unknown [id number] 2.16.84 [id number] 1963 Unknown [id number] 2.16.84 [id number] 1963 Unknown [id number] 2.16.84 [id number] 1963 Unknown [id number] 2.16.84 [id number] 1963 Unknown [id number] 2.16.84 [id number] 1963 Unknown [id number] 2.16.84 [id number] 1963 Unknown [id number] 2.16.8 [id number] 1963 Unknown [id number] 2.16.8 [id number] 1963 Unknown [id number] 2.16.8 [id number] 1961 Medicaid [id number] 1961 Unknown [id number] 1961 Unknown [id number] Unknown [employer] [id number] Unknown [id number] 2.16.8 [id number] Social History Date Type Detail [facility] Work Phone: Start: 1965 Sex Assigned At Male Dorian [facility] Start: 08-27-2022 End: 09-04-2024 Tobacco smoking status Never smoked tobacco (finding) [facility] [place] Tobacco smoking status Never Gener al Surgery [facility] Sex Assigned At Male [facility] Work Phone: Start: 09-28-2024 Sex Male (finding) [facility] Functional Status Date Assessment Result Facility 09-04-2024 Functional Status N/A [facility] [place] 08-27-2022 Functional Status N/A General [facility] Clinical Note 09-04-2024 Note Date & Type Note Facility 09-04-2024 Note General Surgery Offi ce/Clinic Note Chief Complaint consultation for hemorrhoids HPI Staff 59 year old male presents on consultation from Dr. Hernandez for hemorrhoids. Reports for the past two months, patient has been experiencing daily intermittent internal and external rectal pain. Describes pain as sharp and stabbing at times and soreness at other times. Verbalized intermittent bright red rectal bleeding. He has tried multiple OTC medications without change in symptoms. PCP prescribed Hydrocortisone-Pramoxine cream 08/24, insurance did not cover. Last colonoscopy completed 08/2015 with internal hemorrhoids. History of Present Illness 59 yo male with h/o htn, hypercholesterolemia, CEFERINO, GERD, asthma, BPH, referred for hemorrhoids; patient reports 2-3 month h/o intermittent rectal bleeding with bms, rectal pain with bms, feeling of swelling or hemorrhoid prolapse with bms, spontaneously reduces; no change in bms or hard stool; no straining; no blood mixed in stools; no abd operations; last colonoscopy 2014 with internal hemorrhoids; on baby asa daily and Diclofenac prn; no fmhx of GI malignancy or IBD. Review of Systems PHQ Score Initial Depression Screen Score: 0 SCORE ROS - Provider Constitutional: no fever, no [...] & Measurements HR: 76(Peripheral) RR: 16 BP: 142/104 HT: 69 in HT: 175.2 cm WT: 105.1 kg WT: 231.706 lb BMI: 34.24 HEENT: normal conjunctiva, sclera clear, no scleral icterus, EOM intact, PERRLA, oral mucosa moist without lesions. Neck: trachea midline, no mass, symmetric, no thyromegaly or nodules, no adenopathy Respiratory: lungs CTA, respirations non labored. Cardiovascular: regular rate and rhythm, no murmur, no pedal edema or varicosities. Gastrointestinal: obese, soft, non distended, no tenderness, no masses, no palpable hernias, diastasis recti no, no hepatosplenomegaly; normal bs rectal: anterior anal skin tags without inflammation or ulceration, no fissures; no external or palpable internal hemorrhoids; no blood or masses, normal tone. Lymphatic: no cervical adenopathy, no supraclavicular adenopathy. Musculoskeletal: normal gait, digits and nails without infection, nodes, cyanosis, clubbing. Skin: no rashes, no lesions, no ulcers, no subcutaneous nodules, induration. Psychiatric/Neuro: oriented to time, place, person, judgement normal, affect appropriate for age, insight intact, no focal deficits. Tests: , review of old records completed , Discussed surgical options, risks, and possible complications with patient. Assessment/Plan 1. Rectal bleeding (K62.5: Hemorrhage of anus and rectum) plan colonoscopy under anesthesia for further evaluation, informed consent obtained. 2. Rectal pain (K62.89: Other specified diseases of anus and rectum) see # 1 Follow-up No qualifying data available Problem List/Past Medical History Ongoing Allergic rhinitis Anemia Anxiety Asthma BMI 34.0-34.9,adult BPH (benign prostatic hyperplasia) Chronic GERD Chronic low back pain Dysphagia Epigastric pain GERD (gastroesophageal reflux disease) History of diverticulitis History of gastritis History of nephrolithiasis HTN (hypertension) Insomnia Neoplasm of uncertain behavior of scalp CEFERINO (obstructive sleep apnea) Paresthesia Prediabetes Rectal bleeding Rectal pain Seborrheic keratosis Skin tag Transient cerebral ischemia Vitamin D deficiency Historical No qualifying data Procedure/Surgical History EGD - Esophagogastroduodenoscopy (09/22/2022), Colonoscopy (09/15/2015), Arthroscopy of knee, Arthroscopy of knee, Cervical laminectomy, Cystoscopy, EGD - Esophagogastroduodenoscopy, Excision of cyst, Lithotripsy, Meniscal repair. Medications aspirin 325 mg Oral EC Tab, 325 mg= 1 tab(s), Oral, Daily Carafate 1 gram Tab, 1 gm= 1 tab(s), Oral, BID Cymbalta 60 mg Cap-DR, 1 (more content not included)... [facility] Comment on above: Result Comment: Elec tronically Signed By: TONY WHITESIDE, Baltazar R\.br\Date and Time Signed: 09/04/24 16:18 EST Clinical Note 09-22-2022 Note Date & Type [...] good condition. CC: Patient's family physician [facility] Clinical Note 06-03-2022 Note Date & Type [...] by: JULIEN OLSON Date: 2022-06-03 11:45 [facility] Evaluation + Plan note Note Date & Type Note Facility Evaluation + Plan note No data available for this section General Surgery [facility] Evaluation note Note Date & Type Note Facility [facility] Dis[facility] Note Date & Type Note Facility Hospital Discharge instructions No data available for this section General Surgery [facility] Progress note Note Date & Type Note Facility Progress note No data available for this section General Surgery [facility] Chief Complaint and Reason for Visit Chief Complaint m23.90 Chief Complaint Admit Date Unknown September 26, 2024 12 :15pm Advance Directives No Advanced Directives Records Found Advance Directive Response Recorded Date/ Time Advance Directives No July 8:44am Advance Directive Response Recorded Date/ Time Advance Directives No July 7:44am Summary Purpose Family History No Family History Records Found No data available for this section No Family History Records Found No data available for this section No Family History Records Found Additional Source Comments Care Teams (unrecognized sec tion and content) Team Status: Inactive Member Role Status Dates Joni Hernandez MD Primary Care Provider, Attending Pr sandy Active Team Status: Active Member Role Status Dates Joni Hernandez MD Primary Care Provider Active Team Status: Inactive Member Role Status Dates Joni Hernandez MD Primary Care Provider Active Start: September 26, 2024 End: September 26, 2024 Baltazar Cartagena MD [facility] Attending Provider Active Start: September 26, 2024 End: September 26, 2024 Goals (unrecognized section and content) Goals may be documented in a n alternate sectionGoals may be documented in an alternate section No data available for this section No data available for this section No data available for this sectionGoals may be documented in an alternate section No data available for this section (unrecognized sect ion and content) No Status Records FoundNo Status Records FoundNo Status Records Found INFORMATION SOURCE (unrecogn ized section and content) DATE CREATED AUTHOR 02/25/2023 [facility] DATE CREATED AUTHOR AUTHOR'S ORGANIZ ATION 10/02/2024 [facility] DATE CREATED AUTHOR AUTHOR'S ORGANIZ ATION 10/19/2024 [facility] FOR RECORDS PERTAINING TO PATIENTS WHO ARE [...] BE BASED ON THE PRIMARY CLINICAL RECORDS. [facility]. provides no warranty or guarantee of the accuracy or completeness of information in this document.
[2025-03-08 12:44] LABS: Basophils Absolute Auto 0.1 10^3/uL (0.0-0.1); Eosinophils Absolute Auto 0.3 10^3/uL (0.0-0.7); Eosinophils Percent Auto 3.4 % (0.9-7.0); Hematocrit 43.4 % (42.0-54.0); Hemoglobin 14.6 g/dL (14.0-18.0); Immature Granulocytes Abs Auto 0.06 10^3/uL (0.00-0.03); Immature Granulocytes Pct Auto 0.7 % (0.0-0.5); Lymphocytes Absolute Auto 2.4 10^3/uL (1.2-3.8); Lymphocytes Percent Auto 28.6 % (20.5-60.0); Mean Corpuscular HGB Conc 33.6 g/dL (29.9-35.2); Mean Corpuscular Hemoglobin 28.2 pg (25.9-34.0); Mean Corpuscular Volume 83.9 fL (80.0-94.0); Mean Platelet Volume 9.7 fL (9.5-13.5); Monocytes Absolute Auto 0.6 10^3/uL (0.3-0.8); Monocytes Percent Auto 6.9 % (1.7-12.0); Neutrophils Absolute Auto 4.9 10^3/uL (1.4-6.5); Neutrophils Percent Auto 59.4 % (43.0-75.0); Platelet Count 240 10^3/uL (150-450); Red Blood Count 5.17 10^6/uL (4.70-6.10); Red Cell Distribution Width 13.2 % (11.0-15.0); White Blood Count 8.3 10^3/uL (4.0-11.0)
[2025-03-08 13:09] LABS: Alanine Aminotransferase 63 U/L (16-63); Albumin Globulin Ratio 1.1; Albumin Level 3.9 g/dL (3.4-5.0); Alkaline Phosphatase 67 U/L (46-116); Anion Gap 13.4; Aspartate Amino Transferase 29 U/L (15-37); Bilirubin Total 0.6 mg/dL (0.2-1.0); Calcium 9.3 mg/dL (8.5-10.1); Carbon Dioxide 28.7 mmol/L (21.0-32.0); Chloride 103 mmol/L (98-107); Chol HDL Ratio 3.2; Cholesterol 169 mg/dL (<=200); Estimated GFR (African America >60 (>=60 mL/min/1.73m^2); Estimated GFR (Non-African Ame 56 (>=60 mL/min/1.73m^2); Free T3 1.93 pg/mL (2.18-3.98); Globulin 3.6 g/dL; Glucose 113 mg/dL (74-106); HDL Cholesterol 53 mg/dL (40-60); LDL Cholesterol Calculated 95.2 mg/dL; Potassium 4.1 mmol/L (3.5-5.1); Sodium 141 mmol/L (136-145); Total Protein 7.5 g/dL (6.4-8.2); Triglycerides 104 mg/dL (<=150); VLDL CHOLESTEROL 20.8 mg/dL
[2025-03-08 14:26] LABS: Estimated Average Glucose 131 mg/dL; Glycohemoglobin A1C 6.2 % (4.5-6.2)
== END 2025-03-08 12:29 | disposition home or self-care (01) ==
LOC: LAB 12:28
PROVIDERS: PCP Family Medicine; Visit Provider Family Medicine
DX: G47.30 Sleep apnea, unspecified (principal); R06.09 Other forms of dyspnea; R73.03 Prediabetes; R55 Syncope and collapse
CPT/HCPCS: 36415; 80053; 80061; 82306; 83036; 83540; 83880; 84436; 84443; 84481; 84484; 85025

== ENCOUNTER 2025-03-20 08:26 | Outpatient (OUT) | payer MEDICAID, SELFPAY ==
--- OUTSIDE RECORDS SUMMARY | 2025-03-20 08:45 | XMS_ITS | CCD ---
Author Organization [facility] CliniSyin Care Team Providers Care Car Stower Name Role Phone MD Joni Hernandez Primary Care Provider [phone] MD Joni Hernandez Attending Provider Joni Hernandez Primary Care Physician MARY Jo, [...] Unavailable Joni Hernandez MD Primary Care Provider [phone] Baltazar Cartagena MD Attending Provider Joni Hernandez Primary Care Unavailable Baltazar Cartagena Attending Unavailable Baltazar Cartagena Admitting Unavailable TONY, Baltazar Townsend Attending Unavailable TONY, Baltazar Townsend Attending Unavailable Joni Hernandez Referring Unavailable NILL, Baltazar Townsend Attending Unavailable Allergies Allergy Classification Reported Allergen(s) Allergy Type Date of Onset Reaction(s) Facility (5 sources) atorvastatin; Translations: [atorvastatin] Drug Allergy Cramp (finding) [facility] (5 sources) Clindamycin; Translations: [clindamycin] Drug Allergy Eruption of skin (disorder) [facility] (5 sources) Sulfonamides (Antibiotic); Translations: [sulfa drugs] Drug allergy Eruption (morphologic abnormality) [facility] (1 source) Bacitracin / Neomycin / Polymyxin B Drug Allergy [facility] (1 source) Clindamycin Drug Allergy [facility] (1 source) Dextroamphetamine Drug Allergy [facility] (2 sources) Morphine; Translations: [morphine] Drug Allergy 02-09-20 [facility] (1 source) Sulfonamides (Antibiotic) Drug allergy (disorder) [facility] (2 sources) Morphine; Translations: [morphine] Drug Allergy 02-09-20 Unknown [facility] Medications Current Medications Medication Drug Class(es) Dates [...] Corticosteroid Start: 09-03-2024 Flonase 0.05 m g/inh [place] 1 spray(s), Nasal, Daily, Refill(s) 0 Start Date: 09/03/24 Status: Ordered Start: 08-25-2022 Flonase 0.05 m g/inh [place] 1 spray(s), Nasal, BID, Refill(s) 0 Start [...] disease (1 source) Atherosclerotic heart disease of [place] coronary artery without angina pectoris; 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] Onset: 02-17-20 Chronic [...] 23 08-25-2022 Chronic Other aftercare (1 source) nursing home (current) use of aspirin; 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 Marylu Salinas [facility] Brian 09-26-2024 L --------- ----- Specimen: [id number] Received: 09/27/24 Status: SHOSHANA Goyalvick Num: [id number] Spec Type: Surgical Subm Dr: Baltazar Cartagena MD FACS Tissues: A Colon Biopsy (RECTAL POLYP) Procedures: HE/2, Gross/Micro L4 ----- Age/ Patient Sex Location Account Attending Physician ----- Hina Schultz/Jaylyn LABELL [id number] Baltazar Cartagena MD FACS ----- SPEC NUM: [id number] RECD: 09/27/24 STATUS: SHOSHANA GOYALVick NUM: [id number] GALLO: 09/26/[address] [facility] [address]: Baltazar Cartagena MD FACS ENTERED: 09/27/[address]: Santino Laguerre SPEC TYPE: Surgical DEPT: FLORINA WILKERSON ENTERED BY: [id number] RECV BY: [id number] ORDERED: HE/2, Gross/Micro L4 ORDERED: HE/2, Gross/Micro [...] Description Microscopic examination is performed. CPT Codes 48135 ----- ----- Specimen: [id number] Received: 09/27/24 Status: SHOSHANA De Leon Num: [id number] Spec Type: Surgical Subm Dr: Baltazar Cartagena MD FACS Tissues: A Colon Biopsy (RECTAL POLYP) Procedures: ANJALI Gross/Micro L4 ----- Patient: Hina Schultz [id number] (Continued) ----- Signed (signature on file) Doug Bush MD 09/28/24 1009 Normal [facility] Ambulatory Visit Summaryon 1 11-05-2023 [...] mg Tab) fluticasone nasal (Flonase 0.05 mg/inh [place]) fluticasone nasal (Flonase 0.05 mg/inh [place]) formoterol-mometasone (Dulera 100 mcg-5 mcg/inh inhalation aerosol) [...] Unchanged fluticasone nasal (Flonase 0.05 mg/ inh [place]) 1 Sprays Nasal Inhalation Every day Contact prescribing physician if questions or concerns Unchanged fluticasone nasal (Flonase 0.05 mg/ inh [place]) 1 Sprays Nasal Inhalation 2 times a [...] for choosing us for your care. Normal [facility] BNPon 02-10-2023 Natriuretic peptide B (Bld) [Mass/Vol] 13.0 pg/mL Normal <=900.0 [facility] Comment on above: Performed By: #### CMP, BNP #### [facility] [address] [place] [address] Dr. Irene Nina CBC AUTO DIFFon 02-10-2023 BASO # 0.1 103/ul Normal 0.0-0.1 [facility] Comment on above: Performed By: #### PT, DDIM, PTT #### [facility] [address] [address] [address] Irene Nina Basophils/100 WBC (Bld) 0.9 % Normal 0.2-2.0 [facility] Comment on above: Performed By: #### PT, DDIM, PTT #### [facility] [address] [address] [address] Irene Nina EO # 0.4 103/ul Normal 0.0-0.7 [facility] Comment on above: Performed By: #### PT, DDIM, PTT #### [facility] [address] [address] [address] Irene Nina Eosinophils/100 WBC (Bld) 5.2 % Normal 0.9-7.0 [facility] Comment on above: Performed By: #### PT, DDIM, PTT #### [facility] [address] [place] [address] Dr. Irene Nina Erythrocyte distribution width (RBC) [Ratio] 13.2 % Normal 11.0-15.0 [facility] Comment on above: Performed By: #### PT, DDIM, PTT #### [facility] [address] [place] [address] Dr. Irene Nina Hematocrit (Bld) [Volume fraction] 43.4 % Normal 42.0-54.0 [facility] Comment on above: Performed By: #### PT, DDIM, PTT #### [facility] [address] [place] [address] Dr. Irene Nina Hemoglobin (Bld) [Mass/Vol] 14.0 g/dL Normal 14.0-18.0 [facility] Comment on above: Performed By: #### PT, DDIM, PTT #### [facility] [address] [place] [address] Dr. Irene Nina IG # 0.10 10e3/ul Critically high 0.00-0.03 [facility] Comment on above: Performed By: #### PT, DDIM, PTT #### [facility] [address] [place] [address] Dr. Irene Nina IG % 1.3 % Critically high 0.0-0.5 [facility] Comment on above: Performed By: #### PT, DDIM, PTT #### [facility] [address] [place] [address] Dr. Irene Nina LYMPH # 2.7 103/ul Normal 1.2-3.8 [facility] Comment on above: Performed By: #### PT, DDIM, PTT #### [facility] [address] [place] [address] Dr. Irene Nina Lymphocytes/100 WBC (Bld) 34.8 % Normal 20.5-60.0 [facility] Comment on above: Performed By: #### PT, DDIM, PTT #### [facility] [address] [place] [address] Dr. Irene Nina MANUAL DIFF REQ NO Normal [facility] Comment on above: Performed By: #### PT, DDIM, PTT #### [facility] [address] [place], [place] [id number] Dr. Irnee Nina MCH (RBC) [Entitic mass] 27.7 pg Normal 25.9-34.0 [facility] Comment on above: Performed By: #### PT, DDIM, PTT #### [facility] [address] [place] [address] Dr. Irene Nina MCHC (RBC) [Mass/Vol] 32.3 g/dL Normal 29.9-35.2 [facility] Comment on above: Performed By: #### PT, DDIM, PTT #### [facility] [address] [place] [address] Dr. Irene Nina MCV (RBC) [Entitic vol] 85.8 fL Normal 80.0-94.0 [facility] Comment on above: Performed By: #### PT, DDIM, PTT #### [facility] [address] [place] [address] Dr. Irene Nina MONO # 0.6 103/ul Normal 0.3-0.8 [facility] Comment on above: Performed By: #### PT, DDIM, PTT #### [facility] [address] [place] [address] Dr. Irene Nina Monocytes/100 WBC (Bld) 7.7 % Normal 1.7-12.0 [facility] Comment on above: Performed By: #### PT, DDIM, PTT #### [facility] [address] [place] [address] Dr. Irene Nina NEUT # 3.9 103/ul Normal 1.4-6.5 [facility] Comment on above: Performed By: #### PT, DDIM, PTT #### [facility] [address] [place] [address] Dr. Irene Nina Neutrophils/100 WBC (Bld) 50.1 % Normal 43.0-75.0 [facility] Comment on above: Performed By: #### PT, DDIM, PTT #### [facility] [address] [place] [address] Dr. Irene Nina Platelet mean volume (Bld) [Entitic vol] 9.5 fL Normal 9.5-13.5 [facility] Comment on above: Performed By: #### PT, DDIM, PTT #### [facility] [address] [place], [place] [address] Dr. Irene Nina PLT 239 103/ul Normal 150-450 [facility] Comment on above: Performed By: #### PT, DDIM, PTT #### [facility] [address] [place], [place] [address] Dr. Irene Nina RBC 5.06 106/ul Normal 4.70-6.10 [facility] Comment on above: Performed By: #### PT, DDIM, PTT #### [facility] [address] [place], [place] [address] Dr. Irene Nina WBC 7.8 103/ul Normal 4.0-11.0 [facility] Comment on above: Performed By: #### PT, DDIM, PTT #### [facility] [address] [place], [place] [address] Dr. Irene Nina ECHOCARDIO M/2D COMPLETEon 0 02-10-2023 ECHOCARDIO M/2D COMPLETE Patient: HINA SCHULTZ Exam Date: 02/10/2023 : 1965 Gender:M Ordering : DR JONI HERNANDEZ . Admission #: [id number] Family : Order #: [id number] CLICK HERE TO VIEW EXAM ECHOCARDIOGRAM REPORT [...] Suarez M.D. on 02/13/2023 at 14:57 Normal [facility] PROF 14(COMP METB)on 023 Albumin [Mass/Vol] 3.5 g/dL Normal 3.4-5.0 [facility] Comment on above: Performed By: #### CMP, BNP #### [facility] [address] [place] [address] Dr. Irene Nina Albumin/Globulin [Mass ratio] 1.1 {ratio} Normal [facility] Comment on above: Performed By: #### CMP, BNP #### [facility] [address] [place] [address] Dr. Irene Nina ALP [Catalytic activity/Vol] 63 U/L Normal 46-116 [facility] Comment on above: Performed By: #### CMP, BNP #### [facility] [address] [place] [address] Dr. Irene Nina ALT [Catalytic activity/Vol] 72 U/L Critically high 16-63 [facility] Comment on above: Performed By: #### CMP, BNP #### [facility] [address] [place] [address] Dr. Irene Nina Anion gap [Moles/Vol] 10.9 mmol/L Normal [facility] Comment on above: Performed By: #### CMP, BNP #### [facility] [address] [place] [address] Dr. Irene Nina AST [Catalytic activity/Vol] 35 U/L Normal 15-37 [facility] Comment on above: Performed By: #### CMP, BNP #### [facility] [address] [place] [address] Dr. Irene Nina Bilirubin [Mass/Vol] 0.4 mg/dL Normal 0.2-1.0 [facility] Comment on above: Performed By: #### CMP, BNP #### [facility] [address] [place] [address] Dr. Irene Nina Calcium [Mass/Vol] 9.2 mg/dL Normal 8.5-10.1 [facility] Comment on above: Performed By: #### CMP, BNP #### [facility] [address] [place] [address] Dr. Irene Nina Chloride [Moles/Vol] 105 mmol/L Normal 98-107 [facility] Comment on above: Performed By: #### CMP, BNP #### [facility] [address] [place] [address] Dr. Irene Nina CO2 [Moles/Vol] 30.2 mmol/L Normal 21.0-32.[address] [facility] Comment on above: Performed By: #### CMP, BNP #### [facility] [address] [place] [address] Dr. Irene Nina Creatinine [Mass/Vol] 1.43 mg/dL Critically high 0.70-1.30 [facility] Comment on above: Performed By: #### CMP, BNP #### [facility] [address] [place] [address] Dr. Irene Nina EGFR-AF MALAWIAN >60 Normal >=60 [facility] Comment on above: Performed By: #### CMP, BNP #### [facility] [address] [address] [address] Irene Nina EGFR-NON AF MALAWIAN 51 mL/min/1.73m2 Critically low >=60 [facility] Comment on above: Performed By: #### CMP, BNP #### [facility] [address] [address] [address] Irene Nina Globulin (S) [Mass/Vol] 3.3 g/dL Normal [facility] Comment on above: Performed By: #### CMP, BNP #### [facility] [address] [address] [address] Irene Nina Glucose [Mass/Vol] 100 mg/dL Normal 74-106 [facility] Comment on above: Performed By: #### CMP, BNP #### [facility] [address] [address] [address] Irene Nina Potassium [Moles/Vol] 4.1 mmol/L Normal 3.5-5.1 [facility] Comment on above: Performed By: #### CMP, BNP #### [facility] [address] [address] [address] Irene Nina Protein [Mass/Vol] 6.8 g/dL Normal 6.4-8.2 [facility] Comment on above: Performed By: #### CMP, BNP #### [facility] [address] [address] [address] Irene Nina Sodium [Moles/Vol] 142 mmol/L Normal 136-145 [facility] Comment on above: Performed By: #### CMP, BNP #### [facility] [address] [address] [address] Irene Nina Urea nitrogen [Mass/Vol] 14.0 mg/dL Normal 7.0-18.0 [facility] Comment on above: Performed By: #### CMP, BNP #### [facility] [address] [address] [address] Irene Nina Urea nitrogen/Creatin ine [Mass ratio] 9.8 mg/mg Normal [facility] Comment on above: Performed By: #### CMP, BNP #### [facility] [address] [place] [address] Dr. Irene Nina BNPon 02-09-2023 Natriuretic peptide B (Bld) [Mass/Vol] 20.0 pg/mL Normal <=900.0 [facility] Comment on above: Performed By: #### CMP, BNP, HSTROPN ### # [facility] [address] [place] [address] Dr. Irene Nina CARDIAC MP 3-6on 3 CK [Catalytic activity/Vol] 117 U/L Normal 39-308 [facility] Comment on above: Performed By: #### PT, DDIM, PTT #### [facility] [address] [place] [address] Dr. Irene Nina CK.MB [Mass/Vol] 0.99 ng/mL Normal <=3.[address] [facility] Comment on above: Performed By: #### PT, DDIM, PTT #### [facility] [address] [place] [address] Dr. Irene Nina HSTROP 9.6 pg/mL Normal 4.0-76.1 [facility] Comment on above: Result Comment: CUT-OFF POINTS HAVE BEEN ESTABLISHED BASED ON THE FOURTH UNIVERSAL DEFINITIONS OF MYOCARDIAL INFARCTION. THE UPPER REFERENCE LIMIT (URL) OF TROPONIN, DEFINED THE 99TH PERCENTILE OF cTnI DISTRIBUTION IN A REFERENCE POPULATION, HAS BEEN CONFIRMED THE DECISION THRESHOLD FOR HI DIAGNOSIS. Performed By: #### P T, DDIM, PTT #### [facility] [address] [place] [address] Dr. Irene Nina CK [Catalytic activity/Vol] 132 U/L Normal 39-308 [facility] Comment on above: Performed By: #### PT, DDIM, PTT #### [facility] [address] [place] [address] Dr. Irene Nina CK.MB [Mass/Vol] 1.10 ng/mL Normal <=3.[address] [facility] Comment on above: Performed By: #### PT, DDIM, PTT #### [facility] [address] [place] [address] Dr. Irene Nina HSTROP 10.2 pg/mL Normal 4.0-76.1 [facility] Comment on above: Result Comment: CUT-OFF POINTS HAVE BEEN ESTABLISHED BASED ON THE FOURTH UNIVERSAL DEFINITIONS OF MYOCARDIAL INFARCTION. THE UPPER REFERENCE LIMIT (URL) OF TROPONIN, DEFINED THE 99TH PERCENTILE OF cTnI DISTRIBUTION IN A REFERENCE POPULATION, HAS BEEN CONFIRMED THE DECISION THRESHOLD FOR HI DIAGNOSIS. Performed By: #### P T, DDIM, PTT #### [facility] [address] [place] [address] Dr. Irene Nina CBC AUTO DIFFon 02-09-2023 BASO # 0.1 103/ul Normal 0.0-0.1 [facility] Comment on above: Performed By: #### PT, DDIM, PTT #### [facility] [address] [place] [address] Dr. Irene Nina Basophils/100 WBC (Bld) 1.1 % Normal 0.2-2.0 [facility] Comment on above: Performed By: #### PT, DDIM, PTT #### [facility] [address] [place] [address] Dr. Irene Nina EO # 0.4 103/ul Normal 0.0-0.7 [facility] Comment on above: Performed By: #### PT, DDIM, PTT #### [facility] [address] [place] [address] Dr. Irene Nina Eosinophils/100 WBC (Bld) 5.0 % Normal 0.9-7.0 [facility] Comment on above: Performed By: #### PT, DDIM, PTT #### [facility] [address] [place] [address] Dr. Irene Nina Erythrocyte distribution width (RBC) [Ratio] 13.2 % Normal 11.0-15.0 [facility] Comment on above: Performed By: #### PT, DDIM, PTT #### [facility] [address] [place] [address] Dr. Irene Nina Hematocrit (Bld) [Volume fraction] 44.8 % Normal 42.0-54.0 [facility] Comment on above: Performed By: #### PT, DDIM, PTT #### [facility] [address] [place] [address] Dr. Irene Nina Hemoglobin (Bld) [Mass/Vol] 14.6 g/dL Normal 14.0-18.0 [facility] Comment on above: Performed By: #### PT, DDIM, PTT #### [facility] [address] [place] [address] Dr. Irene Nina IG # 0.05 10e3/ul Critically high 0.00-0.03 [facility] Comment on above: Performed By: #### PT, DDIM, PTT #### [facility] [address] [place] [address] Dr. Irene Nina IG % 0.7 % Critically high 0.0-0.5 [facility] Comment on above: Performed By: #### PT, DDIM, PTT #### [facility] [address] [place] [address] Dr. Irene Nina LYMPH # 2.1 103/ul Normal 1.2-3.8 [facility] Comment on above: Performed By: #### PT, DDIM, PTT #### [facility] [address] [place] [address] Dr. Irene Nina Lymphocytes/100 WBC (Bld) 28.6 % Normal 20.5-60.0 [facility] Comment on above: Performed By: #### PT, DDIM, PTT #### [facility] [address] [place] [address] Dr. Irene Nina MANUAL DIFF REQ NO Normal [facility] Comment on above: Performed By: #### PT, DDIM, PTT #### [facility] [address] [place] [address] Dr. Irene Nina MCH (RBC) [Entitic mass] 28.0 pg Normal 25.9-34.0 [facility] Comment on above: Performed By: #### PT, DDIM, PTT #### [facility] [address] [place] [address] Dr. Irene Nina MCHC (RBC) [Mass/Vol] 32.6 g/dL Normal 29.9-35.2 [facility] Comment on above: Performed By: #### PT, DDIM, PTT #### [facility] [address] [place] [address] Dr. Irene Nina MCV (RBC) [Entitic vol] 85.8 fL Normal 80.0-94.0 [facility] Comment on above: Performed By: #### PT, DDIM, PTT #### [facility] [address] [place] [address] Dr. Irene Nina MONO # 0.5 103/ul Normal 0.3-0.8 [facility] Comment on above: Performed By: #### PT, DDIM, PTT #### [facility] [address] [place] [address] Dr. Irene Nina Monocytes/100 WBC (Bld) 6.5 % Normal 1.7-12.0 [facility] Comment on above: Performed By: #### PT, DDIM, PTT #### [facility] [address] [place] [address] Dr. Irene Nina NEUT # 4.2 103/ul Normal 1.4-6.5 [facility] Comment on above: Performed By: #### PT, DDIM, PTT #### [facility] [address] [place] [address] Dr. Irene Nina Neutrophils/100 WBC (Bld) 58.1 % Normal 43.0-75.0 [facility] Comment on above: Performed By: #### PT, DDIM, PTT #### [facility] [address] [place] [address] Dr. Irene Nina Platelet mean volume (Bld) [Entitic vol] 9.8 fL Normal 9.5-13.5 [facility] Comment on above: Performed By: #### PT, DDIM, PTT #### [facility] [address] [place] [address] Dr. Irene Nina PLT 245 103/ul Normal 150-450 [facility] Comment on above: Performed By: #### PT, DDIM, PTT #### [facility] [address] [place] [address] Dr. Irene Nina RBC 5.22 106/ul Normal 4.70-6.10 [facility] Comment on above: Performed By: #### PT, DDIM, PTT #### [facility] [address] [address] [address] Irene Nina WBC 7.2 103/ul Normal 4.0-11.0 [facility] Comment on above: Performed By: #### PT, DDIM, PTT #### [facility] [address] [place] [address] Dr. Irene Nina D-DIMERon 02-09-2023 D-DIMER 0.51 mg/L FEU Normal <=0.59 [facility] Comment on above: Performed By: #### PT, DDIM, PTT #### [facility] [address] [place] [address] Dr. Irene Nina D-DIMER COMMENTS SEE BELOW Normal [facility] Comment on above: Result Comment: Increases in [...] By: #### P T, DDIM, PTT #### [facility] [address] [place] [address] Dr. Irene Nina PROF 14(COMP METB)on 023 Albumin [Mass/Vol] 3.9 g/dL Normal 3.4-5.0 [facility] Comment on above: Performed By: #### CMP, BNP, HSTROPN ### # [facility] [address] [place] [address] Dr. Irene Nina Albumin/Globulin [Mass ratio] 1.1 {ratio} Normal [facility] Comment on above: Performed By: #### CMP, BNP, HSTROPN ### # [facility] [address] [address] [address] Irene Nina ALP [Catalytic activity/Vol] 67 U/L Normal 46-116 [facility] Comment on above: Performed By: #### CMP, BNP, HSTROPN ### # [facility] [address] [address] [address] Irene Nina ALT [Catalytic activity/Vol] 68 U/L Critically high 16-63 [facility] Comment on above: Performed By: #### CMP, BNP, HSTROPN ### # [facility] [address] [address] [address] Irene Nina Anion gap [Moles/Vol] 9.4 mmol/L Normal [facility] Comment on above: Performed By: #### CMP, BNP, HSTROPN ### # [facility] [address] [place] [address] Dr. Irene Nina AST [Catalytic activity/Vol] 30 U/L Normal 15-37 [facility] Comment on above: Performed By: #### CMP, BNP, HSTROPN ### # [facility] [address] [address] [address] Irene Nina Bilirubin [Mass/Vol] 0.5 mg/dL Normal 0.2-1.0 [facility] Comment on above: Performed By: #### CMP, BNP, HSTROPN ### # [facility] [address] [address] [address] Irene Nina Calcium [Mass/Vol] 9.2 mg/dL Normal 8.5-10.1 [facility] Comment on above: Performed By: #### CMP, BNP, HSTROPN ### # [facility] [address] [address] [address] Irene Nina Chloride [Moles/Vol] 105 mmol/L Normal 98-107 [facility] Comment on above: Performed By: #### CMP, BNP, HSTROPN ### # [facility] [address] [address] [address] Irene Nina CO2 [Moles/Vol] 28.6 mmol/L Normal 21.0-32.[address] [facility] Comment on above: Performed By: #### CMP, BNP, HSTROPN ### # [facility] [address] [place] [address] Dr. Irene Nina Creatinine [Mass/Vol] 1.32 mg/dL Critically high 0.70-1.30 [facility] Comment on above: Performed By: #### CMP, BNP, HSTROPN ### # [facility] [address] [place] [address] Dr. Irene Nina EGFR-AF MALAWIAN >60 Normal >=[address] [facility] Comment on above: Performed By: #### CMP, BNP, HSTROPN ### # [facility] [address] [place] [address] Dr. Irene Nina EGFR-NON AF MALAWIAN 56 mL/min/1.73m2 Critically low >=60 [facility] Comment on above: Performed By: #### CMP, BNP, HSTROPN ### # [facility] [address] [place] [address] Dr. Irene Nina Globulin (S) [Mass/Vol] 3.6 g/dL Normal [facility] Comment on above: Performed By: #### CMP, BNP, HSTROPN ### # [facility] [address] [place] [address] Dr. Irene Nina Glucose [Mass/Vol] 123 mg/dL Critically high 74-106 [facility] Comment on above: Performed By: #### CMP, BNP, HSTROPN ### # [facility] [address] [place] [address] Dr. Irene Nina Potassium [Moles/Vol] 4.0 mmol/L Normal 3.5-5.1 [facility] Comment on above: Performed By: #### CMP, BNP, HSTROPN ### # [facility] [address] [place] [address] Dr. Irene Nina Protein [Mass/Vol] 7.5 g/dL Normal 6.4-8.2 [facility] Comment on above: Performed By: #### CMP, BNP, HSTROPN ### # [facility] [address] [place] [address] Dr. Irene Nina Sodium [Moles/Vol] 139 mmol/L Normal 136-145 [facility] Comment on above: Performed By: #### CMP, BNP, HSTROPN ### # [facility] [address] [place] [address] Dr. Irene Nina Urea nitrogen [Mass/Vol] 14.0 mg/dL Normal 7.0-18.0 [facility] Comment on above: Performed By: #### CMP, BNP, HSTROPN ### # [facility] [address] [place] [address] Dr. Irene Nina Urea nitrogen/Creatin ine [Mass ratio] 10.6 mg/mg Normal [facility] Comment on above: Performed By: #### CMP, BNP, HSTROPN ### # [facility] [address] [place] [address] Dr. Irene Nina PROTIMEon 02-09-2023 INR Coag (PPP) [Relative time] 0.99 {INR} Normal [facility] Comment on above: Performed By: #### PT, DDIM, PTT #### [facility] [address] [place] [address] Dr. Irene Nina INR GUIDELINES SEE BELOW Normal [facility] Comment on above: Result Comment: DESIRED INR: 2.0 - 3.0 C ONDITIONS NOT LISTED BELOW 2.5 - 3.5 FOR PROSTHETIC HEART VALVE REPLACEMENT 2.5 - 3.5 RECURRENT THROMBOSIS Performed By: #### P T, DDIM, PTT #### [facility] [address] [place] [address] Dr. Irene Nina PT Coag (PPP) [Time] 10.5 s Normal 9.0-11.6 [facility] Comment on above: Performed By: #### PT, DDIM, PTT #### [facility] [address] [place] [address] Dr. Irene Nina PTTon 02-09-2023 aPTT Coag (Bld) [Time] 26.9 s Normal 22.3-36.2 [facility] Comment on above: Performed By: #### PT, DDIM, PTT #### [facility] [address] [place], [place] [address] Dr. Irene Nina TROPONIN, HIGH SENSITIVITYon 02-09-2023 HSTROP 10.0 pg/mL Normal 4.0-76.1 [facility] Comment on above: Result Comment: CUT-OFF POINTS HAVE BEEN ESTABLISHED BASED ON THE FOURTH UNIVERSAL DEFINITIONS OF MYOCARDIAL INFARCTION. THE UPPER REFERENCE LIMIT (URL) OF TROPONIN, DEFINED THE 99TH PERCENTILE OF cTnI DISTRIBUTION IN A REFERENCE POPULATION, HAS BEEN CONFIRMED THE DECISION THRESHOLD FOR HI DIAGNOSIS. Performed By: #### C MP, BNP, HSTROPN #### [facility] [address] [place], [place] [address] Dr. Irene Nina XR CHEST 1 Von [...] JULIEN OLSON Date: 2023-02-09 16:15 Normal [facility] Covid-19 PCR (CVDTB)on 08-21 SARS-CoV-2 (COVID-19) RNA LUC+probe Ql (Unsp spec) Not detected Normal NOT DETECTED [facility] Comment on above: Result Comment: [...] for this test is supported by the [employer] of Health and Human Service's declaration that [...] By: #### P T, DDIM, PTT #### [facility] [address] [place] [address] Dr. Irene Nina INFLUENZA A AND B AGon 09-[facility] SEE BELOW Normal [facility] Comment on above: Result Comment: Negative for Flu A prote in angiten. Infection due to Flu A cannot be ruled out. Flu A angiten in the sample may be below the detection limit of the test. Performed By: #### P T, DDIM, PTT #### [facility] [address] [place] [address] Dr. Irene Nina INFLUBNEGH SEE BELOW Normal [facility] Comment on above: Result Comment: Negative for Flu B prote in antigen. Infection due to Flu B cannot be ruled out. Flu B antigen in the sample may be below the detection limit of the test. Performed By: #### P T, DDIM, PTT #### [facility] [address] [place] [address] Dr. Irene Nina INFLUENZA A AG Negative Normal NEGATIVE SEE COMMENT [facility] Comment on above: Performed By: #### PT, DDIM, PTT #### [facility] [address] [place] [address] Dr. Irene Nina INFLUENZA B AG Negative Normal NEGATIVE SEE COMMENT [facility] Comment on above: Performed By: #### PT, DDIM, PTT #### [facility] [address] [place] [address] Dr. Irene Nina VIT D 25-[place] LABCORPon 2021 Vitamin D, 25-Hydroxy 38.8 ng/mL Normal 30.0-100.0 [facility] Comment on above: Result Comment: Vitamin D deficiency has been defined by the [place] of Medicine and an Endocrine Society practice guideline as a level of serum 25-OH vitamin D less than 20 ng/mL (1,2). The Endocrine Society went on to further define vitamin D insufficiency as a level between 21 and 29 ng/mL (2). 1. IOM ([place] of Medicine). 2010. Dietary reference intakes for calcium and D. [place]: The National Academies Press. 2. Liz MF, Cas LORA, Doreen COLE, et al. Evaluation, treatment, and prevention of vitamin D deficiency: an Endocrine Society clinical practice guideline. JCEM. 2010; 96(7):1911-30. Performed By: #### V ITADLC #### [facility] [address] [place] [address] Dr. Irene Nina CBC AUTO DIFFon 06-02-2022 BASO # 0.1 103/ul Normal 0.0-0.1 [facility] Comment on above: Performed By: #### CBC #### [facility] [address] [place] [address] Dr. Irene Nina Basophils/100 WBC (Bld) 1.1 % Normal 0.2-2.0 [facility] Comment on above: Performed By: #### CBC #### [facility] [address] [place] [address] Dr. Irene Nina EO # 0.3 103/ul Normal 0.0-0.7 [facility] Comment on above: Performed By: #### CBC #### [facility] [address] [place] [address] Dr. Irene Nina Eosinophils/100 WBC (Bld) 3.6 % Normal 0.9-7.0 [facility] Comment on above: Performed By: #### CBC #### [facility] [address] [place] [address] Dr. Irene Nina Erythrocyte distribution width (RBC) [Ratio] 13.1 % Normal 11.0-15.0 [facility] Comment on above: Performed By: #### CBC #### [facility] [address] [place] [address] Dr. Irene Nina Hematocrit (Bld) [Volume fraction] 44.4 % Normal 42.0-54.0 [facility] Comment on above: Performed By: #### CBC #### [facility] [address] [place] [address] Dr. Irene Nina Hemoglobin (Bld) [Mass/Vol] 14.8 g/dL Normal 14.0-18.0 [facility] Comment on above: Performed By: #### CBC #### [facility] [address] [place] [address] Dr. Irene Nina IG # 0.13 10e3/ul Critically high 0.00-0.03 [facility] Comment on above: Performed By: #### CBC #### [facility] [address] [address] [address] Irene Nina IG % 1.8 % Critically high 0.0-0.5 [facility] Comment on above: Performed By: #### CBC #### [facility] [address] [place] [address] Dr. Irene Nina LYMPH # 1.9 103/ul Normal 1.2-3.8 [facility] Comment on above: Performed By: #### CBC #### [facility] [address] [place] [address] Dr. Irene Nina Lymphocytes/100 WBC (Bld) 25.5 % Normal 20.5-60.0 [facility] Comment on above: Performed By: #### CBC #### [facility] [address] [place] [address] Dr. Irene Nina MANUAL DIFF REQ NO Normal [facility] Comment on above: Performed By: #### CBC #### [facility] [address] [place] [address] Dr. Irene Nina MCH (RBC) [Entitic mass] 28.6 pg Normal 25.9-34.0 [facility] Comment on above: Performed By: #### CBC #### [facility] [address] [place] [address] Dr. Irene Nina MCHC (RBC) [Mass/Vol] 33.3 g/dL Normal 29.9-35.2 [facility] Comment on above: Performed By: #### CBC #### [facility] [address] [place] [address] Dr. Irene Nina MCV (RBC) [Entitic vol] 85.9 fL Normal 80.0-94.0 [facility] Comment on above: Performed By: #### CBC #### [facility] [address] [address] [address] Irene Nina MONO # 0.4 103/ul Normal 0.3-0.8 [facility] Comment on above: Performed By: #### CBC #### [facility] [address] [address] [address] Irene Nina Monocytes/100 WBC (Bld) 5.2 % Normal 1.7-12.0 [facility] Comment on above: Performed By: #### CBC #### [facility] [address] [place] [address] Dr. Irene Nina NEUT # 4.6 103/ul Normal 1.4-6.5 [facility] Comment on above: Performed By: #### CBC #### [facility] [address] [place] [address] Dr. Irene Nina Neutrophils/100 WBC (Bld) 62.8 % Normal 43.0-75.0 [facility] Comment on above: Performed By: #### CBC #### [facility] [address] [place] [address] Dr. Irene Nina Platelet mean volume (Bld) [Entitic vol] 10.1 fL Normal 9.5-13.5 [facility] Comment on above: Performed By: #### CBC #### [facility] [address] [place] [address] Dr. Irene Nina PLT 240 103/ul Normal 150-450 [facility] Comment on above: Performed By: #### CBC #### [facility] [address] [place] [address] Dr. Irene Nina RBC 5.17 106/ul Normal 4.70-6.10 [facility] Comment on above: Performed By: #### CBC #### [facility] [address] [place] [address] Dr. Irene Nina WBC 7.3 103/ul Normal 4.0-11.0 [facility] Comment on above: Performed By: #### CBC #### [facility] [address] [address] [address] Irene Nina IRONon 06-02-2022 Iron [Mass/Vol] 100.0 ug/dL Normal 65.0-175.0 [facility] Comment on above: Performed By: #### PT, DDIM, PTT #### [facility] [address] [address] [address] Irene Nina PROF 14(COMP METB)on 022 Albumin [Mass/Vol] 4.2 g/dL Normal 3.4-5.0 [facility] Comment on above: Performed By: #### PT, DDIM, PTT #### [facility] [address] [address] [address] Irene Nina Albumin/Globulin [Mass ratio] 1.4 {ratio} Normal [facility] Comment on above: Performed By: #### PT, DDIM, PTT #### [facility] [address] [place] [address] Dr. Irene Nina ALP [Catalytic activity/Vol] 57 U/L Normal 46-116 [facility] Comment on above: Performed By: #### PT, DDIM, PTT #### [facility] [address] [place] [address] Dr. Irene Nina ALT [Catalytic activity/Vol] 60 U/L Normal 16-63 [facility] Comment on above: Performed By: #### PT, DDIM, PTT #### [facility] [address] [address] [address] Irene Nina Anion gap [Moles/Vol] 12.9 mmol/L Normal [facility] Comment on above: Performed By: #### PT, DDIM, PTT #### [facility] [address] [address] [address] Irene Nina AST [Catalytic activity/Vol] 43 U/L Critically high 15-37 [facility] Comment on above: Performed By: #### PT, DDIM, PTT #### [facility] [address] [place] [address] Dr. Irene Nina Bilirubin [Mass/Vol] 0.8 mg/dL Normal 0.2-1.0 [facility] Comment on above: Performed By: #### PT, DDIM, PTT #### [facility] [address] [place] [address] Dr. Irene Nina Calcium [Mass/Vol] 9.3 mg/dL Normal 8.5-10.1 [facility] Comment on above: Performed By: #### PT, DDIM, PTT #### [facility] [address] [place] [address] Dr. Irene Nina Chloride [Moles/Vol] 104 mmol/L Normal 98-107 [facility] Comment on above: Performed By: #### PT, DDIM, PTT #### [facility] [address] [place] [address] Dr. Irene Nina CO2 [Moles/Vol] 24.7 mmol/L Normal 21.0-32.[address] [facility] Comment on above: Performed By: #### PT, DDIM, PTT #### [facility] [address] [place] [address] Dr. Irene Nina Creatinine [Mass/Vol] 1.00 mg/dL Normal 0.70-1.30 [facility] Comment on above: Performed By: #### PT, DDIM, PTT #### [facility] [address] [place] [address] Dr. Irene Nina EGFR-AF MALAWIAN >60 Normal >=[address] [facility] Comment on above: Performed By: #### PT, DDIM, PTT #### [facility] [address] [place] [address] Dr. Irene Nina EGFR-NON AF MALAWIAN >60 Normal >=60 [facility] Comment on above: Performed By: #### PT, DDIM, PTT #### [facility] [address] [place] [address] Dr. Irene Nina Globulin (S) [Mass/Vol] 2.9 g/dL Normal [facility] Comment on above: Performed By: #### PT, DDIM, PTT #### [facility] [address] [place] [address] Dr. Irene Nina Glucose [Mass/Vol] 145 mg/dL Critically high 74-106 [facility] Comment on above: Performed By: #### PT, DDIM, PTT #### [facility] [address] [place] [address] Dr. Irene Nina Potassium [Moles/Vol] 4.6 mmol/L Normal 3.5-5.1 [facility] Comment on above: Result Comment: specimen slightly hemoly zed Performed By: #### P T, DDIM, PTT #### [facility] [address] [place] [address] Dr. Irene Nina Protein [Mass/Vol] 7.1 g/dL Normal 6.4-8.2 [facility] Comment on above: Performed By: #### PT, DDIM, PTT #### [facility] [address] [place] [address] Dr. Irene Nina Sodium [Moles/Vol] 137 mmol/L Normal 136-145 [facility] Comment on above: Performed By: #### PT, DDIM, PTT #### [facility] [address] [place] [address] Dr. Irene Nina Urea nitrogen [Mass/Vol] 12.0 mg/dL Normal 7.0-18.0 [facility] Comment on above: Performed By: #### PT, DDIM, PTT #### [facility] [address] [place] [address] Dr. Irene Nina Urea nitrogen/Creatin ine [Mass ratio] 12.0 mg/mg Normal [facility] Comment on above: Performed By: #### PT, DDIM, PTT #### [facility] [address] [place] [address] Dr. Irene Nina VIT B12 AND FOLATEon 022 Cobalamin (Vitamin B12) [Mass/Vol] 436.0 pg/mL Normal 193.0-986.0 [facility] Comment on above: Performed By: #### PT, DDIM, PTT #### [facility] [address] [place] [address] Dr. Irene Nina FOLATE 18.30 ng/mL Normal 8.60-58.90 [facility] Comment on above: Performed By: #### PT, DDIM, PTT #### [facility] [address] [place] [address] Dr. Irene Nina Vital Signs Date Time Vital Sign Value Performing Clinician Manolo rubalcava 09-04-2024 15:28-0500 Blood Pressure Location Baltazar NILL [facility] [place] 09-04-2024 15:28-0500 Diastolic blood pressure 104 mm[Hg] Baltazar NILL [facility] 09-04-2024 15:28-0500 Heart rate 76 /min Baltazar NILL [facility] 09-04-2024 15:28-0500 Respiratory rate 16 /min Baltazar NILL [facility] [place] 09-04-2024 15:28-0500 Systolic blood pressure 142 mm[Hg] Baltazar NILL [facility] 08-27-2022 13:16-0500 Blood Pressure Location Baltazar NILL [facility] 08-27-2022 13:16-0500 Diastolic blood pressure 84 mm[Hg] Baltazar NILL [facility] 08-27-2022 13:16-0500 Heart rate 76 /min Abltazar NILL [facility] 08-27-2022 13:16-0500 Respiratory rate 16 /min Baltazar NILL [facility] 08-27-2022 13:16-0500 Systolic blood pressure 118 mm[Hg] Baltazar NILL [facility] 07-14-2022 09:48-0400 Diastolic blood pressure 106 mm[Hg] MD Joni Hernandez Work Phone: [facility] 07-14-2022 09:48-0400 Heart rate 108 /min MD Joni Hernandez Work Phone: [facility] 07-14-2022 09:48-0400 Respiratory rate 20 /min MD Joni Hernandez Work Phone: [facility] 07-14-2022 09:48-0400 SaO2% (BldA) [Mass fraction] 95 % MD Joni Hernandez Work Phone: [facility] 07-14-2022 09:48-0400 Systolic blood pressure 186 mm[Hg] MD Joni Hernandez Work Phone: [facility] 07-14-2022 09:47-0400 Body height 175.26 cm MD Joni Hernandez Work Phone: [facility] 07-14-2022 09:47-0400 Body weight 91.62 kg MD Joni Hernandez Work Phone: [facility] Encounters Encounter Date Encounter Type Care Provider Facility Start: 10-10-2024 End: 10-10-2024 ambulatory Baltazar CARTAGENA Facility:[facility] Start: 10-10-2024 End: 10-10-2024 Patient encounter procedure Baltazar CARTAGENA [facility] [place] Start: 09-26-2024 End: 09-26-2024 ambulatory Joni Hernandez MD Work Phone: [facility] Work Phone: Start: 09-26-2024 End: 09-26-2024 Departed Referred Joni Hernandez MD Work Phone: [facility] Start: 09-26-2024 End: 09-26-2024 ambulatory Baltazar R NILL Facility:[id number] Start: 09-04-2024 End: 09-04-2024 ambulatory Baltazar R NILL Facility: [facility] Start: 09-04-2024 End: 09-04-2024 Patient encounter procedure Baltazar SHAWL [facility] [place] Start: 02-09-2023 End: 02-10-[address] JONI HERNANDEZ . Facility:[facility] Start: 10-28-2022 End: 10-28-[address] PATSY ORELLANA . Facility:[facility] Start: 10-26-2022 End: 10-27-[address] JONI HERNANDEZ . Facility:[facility] Start: 10-19-2022 End: 10-19-[address] BALTAZAR CARTAGENA . Facility:[facility] Start: 10-01-2022 End: 10-01-2022 Patient encounter procedure Baltazar CARTAGENA [facility] Start: 09-23-2022 Encounter for preprocedural laboratory examination DR JONI HERANNDEZ . [facility] Start: 09-22-2022 End: 09-22-[address] BALTAZAR CARTAGENA . Facility:[facility] Start: 09-17-2022 End: 09-18-2022 Encounter for preprocedural laboratory examination DR JONI HERNANDEZ . Facility:[facility] Start: 09-17-2022 End: 09-18-[address] JONI HERNANDEZ . Facility:[facility] Start: 08-27-2022 End: 08-27-2022 Patient encounter procedure Baltazar CARTAGENA [facility] [place] Start: 07-14-2022 End: 07-14-2022 ambulatory MD Joni Hernandez Work Phone: [facility] Work Phone: Start: 07-14-2022 End: 07-14-2022 Patient encounter procedure MD Joni Hernandez Work Phone: [facility] [place] Start: 06-22-2022 End: 06-22-2022 ambulatory MD Joni Hernandez Work Phone: [facility] Work Phone: Start: 06-22-2022 End: 06-22-2022 Patient encounter procedure MD Joni Hernandez Work Phone: [facility] [place] Start: 06-03-2022 End: 06-04-[address] JONI [...] vaccine, unspecified formulation Baltazar NILL [facility] NEGATED: Highlighted row has not occurred!10-30-2019 influenza virus vaccine, live, attenuated, for intranasal use Baltazar NILL [facility] [place] Payers Date Payer Category Payer Self-pay [id number] 1965 Unknown [id number] 2.16.84 [id number] 1965 Unknown [id number] 2.16.84 [id number] 1965 Unknown [id number] 2.16.84 [id number] 1965 Unknown [id number] 2.16.84 [id number] 1965 Unknown [id number] 2.16.84 [id number] 1965 Unknown [id number] 2.16.84 [id number] 1965 Unknown [id number] 2.16.84 [id number] 1965 Unknown [id number] 2.16.84 [id number] 1965 Unknown [id number] 2.16.84 [id number] 1965 Unknown [id number] 2.16.8 [id number] 1965 Unknown [id number] 2.16.8 [id number] 1965 Unknown [id number] 2.16.8 [id number] 1961 Medicaid [id number] 1961 Unknown [id number] 1961 Unknown [id number] Unknown [facility] [id number] Unknown [id number] 2.16.8 [id number] Social History Date Type Detail Facility [facility] Work Phone: Start: 1965 Sex Assigned At Male [facility] Start: 08-27-2022 End: 09-04-2024 Tobacco smoking status Never smoked tobacco (finding) [facility] Tobacco smoking status Never Gener al Surgery [facility] Sex Assigned At Male [facility] if ever smoked [facility] Work Phone: Start: 09-28-2024 Sex Male (finding) [facility] Functional Status Date Assessment Result Facility 09-04-2024 Functional Status N/A [facility] 08-27-2022 Functional Status N/A [facility] Clinical Note 09-04-2024 Note Date & Type [...] mg Cap-DR, 1 (more content not included)... [facility] Comment on above: Result Comment: Elec tronically Signed By: TONY HWITESIDE, Baltazar R\.br\Date and Time Signed: 09/04/24 16:18 [...] good condition. CC: Patient's family physician [facility] Clinical Note 06-03-2022 Note Date & Type [...] by: JULIEN OLSON Date: 2022-06-03 11:45 [facility] Evaluation + Plan note Note Date & Type Note Facility Evaluation + Plan note No data available for this section [facility] Evaluation note Note Date & Type Note Facility [facility] Discharge instructions Note Date & Type Note Facility Hospital Discharge instructions No data available for this section [facility] Progress note Note Date & Type Note Facility Progress note No data available for this section [facility] [place] Chief Complaint and Reason for Visit Chief [...] End: September 26, 2024 Baltazar Cartagena MD [facility] Attending Provider Active Start: September 26, [...] and content) DATE CREATED AUTHOR 02/25/2023 [facility] DATE CREATED AUTHOR AUTHOR'S ORGANIZ ATION 10/02/2024 [facility] DATE CREATED AUTHOR AUTHOR'S ORGANIZ ATION 10/19/2024 [facility] FOR RECORDS PERTAINING TO PATIENTS WHO ARE [...] BE BASED ON THE PRIMARY CLINICAL RECORDS. [employer] [facility]. provides no warranty or guarantee of the accuracy or completeness of information in this document.
--- NOTE | 2025-03-20 09:00 | RT_ITS ---
[facility] Test Date: 2025-03-20 Pat Name: HINA ALDRIDGE Department: Room: - Gender: Male [employer]: Bibiana Duggan RRT : 1965 Requested By: JONI CAMPOS Order Number: [id number] Reading MD: Alexandre Vaughan Interpretive Statements Pulmonary function testing was completed according to ATS criteria. Findings were considered accurate and reproducible. No bronchodilator was administered due to normal spirometric values. Spirometry: -FEV1/FVC: Normal @ 84% -FEV1: Normal @ 109% -FVC: Normal @ 98% Lung volumes by plethysmography: -RV: Normal @ 83% -TLC: Normal @ 91% Diffusion capacity: -DLCO: Normal @ 97% when corrected for Hb 14.6g/dL Impressions: -Normal PFT. Clinical correlation required. Electronically Signed On 03-27-2025 9:44:02 EDT by Alexandre Vaughan
--- NOTE | 2025-03-20 09:45 | NM_ITS ---
Patient Name: HINA ALDRIDGE MR#: [id number] : 1965 Exam Date: 03/20/2025 Ordering Doctor: DR JONI CAMPOS . RADIOLOGY REPORT PROCEDURE: NM JIMBO PERF SPECT REST STR COMPARISON: None. INDICATIONS: NEAR SYNCOPE, FATIGUE, SHORTNESS OF BREATH TECHNIQUE: Exam Description: Stress/Rest one day protocol gated SPECT Rest Imagin.4 mCi Tc-99m Cardiolite IV on 03/20/2025 Stress Imaging 31.3 mCi Tc-99m Cardiolite IV on 03/20/2025 Exercise Protocol: Marcin Heart Rate (bpm): Rest: 77 Max: 136 PMHR: 85 Blood Pressure: Rest: 159/80 Max: 160/86 Exercise Time: Minutes: 5 Seconds: 36 Stage Reached: Stage: 2 Mets 7.0 Symptoms: Rest and peak stress ECG findings were pending and the EKG portion of the study was pending per attending physician [facility] . For more details please see separate cardiac stress test report. FINDINGS: QUALITY OF STUDY: Good PERFUSION DEFECT: LOCATION: Inferior SIZE: Medium SEVERITY: Moderate TYPE: Reversible WALL MOTION: Normal LV SIZE: 89 mL. TID / TCD: 0.8 LVEF: Calculated EF 65%. SUMMARY: Abnormal myocardial perfusion imaging study CONCLUSION: Abnormal myocardial perfusion stress test showing evidence of inferior ischemia Normal left ventricular systolic function, ejection fraction 65% No transient ischemic dilatation, TID 0.8 EKG portion of stress test is reported separately Dictated by: Kingston Velazco MD on 03/20/2025 at 17:28 Approved by: Kingston Velazco MD on 03/20/2025 at 17:37
--- NOTE | 2025-03-20 11:50 | PC.NURSE ---
Nursing Note Cardiac Stress Test Reviewed: Medication, allergies and patient history reviewed. Stress Test: [x ] Patient tolerated stress test well. [ ] Patient unable to tolerate walking on treadmill. Switched to Lexiscan stress test. [x ] No chest pain noted per patient [ ] Chest pain that resolved prior to leaving stress lab. [ ] No dyspnea noted. [x ] Dyspnea that resolved prior to leaving stress lab. [ x] Patient left stress lab asymptomatic and hemodynamically stable. [ ] Patient taken to the Emergency Room due to non-resolving symptoms following stress test. [x ] Patient achieved target heart rate. [ ] Patient unable to achieve target heart rate. [ ] Aminophylline administered as reversal agent to Lexiscan (Regadenoson). [ ] Nitro administered. Nursing Comments:Pt had Cardiolite test done. Pt had no CP but had dyspnea which he states was not as bad as it has been in the past. Pt ambulated to cafeteria for breakfast prior to second set of images in no distress.
--- NOTE | 2025-03-20 18:56 | PM.STRESS ---
Stress Test Stress Test Allergies Allergy/AdvReac Type Severity Reaction Status Date / Time atorvastatin (From Lipitor) Allergy Mild Muscle Pain Verified 09/06/24 12:59 clindamycin Allergy Mild Rash Verified 09/06/24 12:59 morphine Allergy Mild Hives Verified 09/06/24 12:59 Sulfa (Sulfonamide Allergy Mild Rash Verified 09/06/24 12:59 Antibiotics) Requesting physician: Pablo Hernandez Procedure: Treadmill exercise stress test General Information: Reason for Stress Test: [Near syncope] Cardiac History and Risk Factors: [Hypertension and gender] Resting 12 - Lead Electrocardiogram: Resting EKG showed normal sinus rhythm, heart rate 77 bpm, poor R progression V1-V3, possible old septal infarct, no significant T or ST changes. Resting heart rate 77 bpm, resting blood pressure 148/80 mmHg. The patient was exercised according to standard Marcin protocol and he was able to finish 5 minutes and 36 seconds achieving stage II and VII METS and maximal heart rate of 136 bpm which represents 85% of age-predicted maximum heart rate, peak blood pressure 160/86. Exercise was terminated due to achievement of target heart rate. Patient had some shortness of breath at peak exercise. The patient did not experience any chest neck jaw or arm discomfort throughout the test. The patient was monitored for 8 minutes into recovery phase with heart rate back to 93 bpm and blood pressure to 146/80 mmHg EKG during exercise, at peak exercise, and during recovery phase did not show significant T or ST changes or significant arrhythmias. Rare isolated PVCs were noted Stress Test: Protocol: [Marcin protocol] Exercise Capacity: [Good] Blood Pressure Response: [Normal] Rhythm: [Sinus, no arrhythmia] ST - Response: [No ST changes] Patient Response: [Normal] Interpretation: Maximal stress test achieving 85% of age-predicted maximum heart rate Normal heart rate and blood pressure response to exercise Good exercise tolerance The stress test is negative for exercise-induced ischemic symptoms, EKG changes, or arrhythmias Myocardial perfusion nuclear images result is reported separately Kingston Velazco MD [facility]
== END 2025-03-20 08:27 | disposition home or self-care (01) ==
LOC: CARD 08:26
PROVIDERS: PCP Family Medicine; Visit Provider Family Medicine
DX: R55 Syncope and collapse (principal); G47.30 Sleep apnea, unspecified; R06.09 Other forms of dyspnea; R73.03 Prediabetes
CPT/HCPCS: 78452; 93017; 94010; 94726; 94729; A9500; G0328

== ENCOUNTER 2025-04-30 15:59 | Outpatient (OUT) | payer MEDICAID, SELFPAY ==
--- NOTE | 2025-04-30 16:00 | CA_ITS ---
Patient Name: HINA ALDRIDGE MR#: [id number] : 1965 Exam Date: 04/30/2025 Ordering Doctor: DR EDSON TOSCANO M.D. ECHOCARDIOGRAM REPORT PROCEDURE: CA ECHO DOPPLER COMPLETE INDICATIONS: Coronary artery disease, cardiac stent, NH, hypertension COMPARISON: None. DESCRIPTION: COMPLETE ECHOCARDIOGRAM Real-time transthoracic echocardiography with 2D, M-mode, spectral and color flow Doppler performed. QUALITY: Technical quality was good. LEFT VENTRICLE: Normal chamber size. Proximal septal hypertrophy (sigmoid septum). Mild concentric hypertrophy. Systolic function is normal. Estimated left ventricular ejection fraction is 55-60%. LV EF: Normal left ventricular ejection fraction, (>55%). DIASTOLIC: Normal diastolic function. ATRIAL SEPTUM: LEFT ATRIUM: Normal chamber size. RIGHT ATRIUM: Normal chamber size. RIGHT VENTRICLE: Normal chamber size. Normal right ventricular systolic function. TRICUSPID VALVE: Normal mobility and thickness. No stenosis with no regurgitation. Unable to assess right-sided pressures due to lack of measurable tricuspid regurgitation. MITRAL VALVE: Normal mobility and thickness. No evidence of mitral valve stenosis. There is no mitral annular calcification. No mitral regurgitation. AORTIC VALVE: Normal trileaflet appearance. No visible sclerosis. Normal leaflet mobility. No evidence of aortic valve stenosis. No aortic regurgitation. AORTIC ROOT: Normal diameter and appearance, measuring 3.3 cm. PULMONIC VALVE: Normal thickness and mobility. No stenosis. No regurgitation. PERICARDIUM: No evidence of pericardial effusion. IVC: Not well visualized. PLEURA: CONCLUSION: 1. Mild concentric left ventricular hypertrophy with normal systolic function. Estimated LVEF is 55 to 60%. 2. Normal right ventricular size and systolic function. 3. Normal diastolic function. 4. No significant valvular dysfunction. 5. Unable to assess right-sided pressures due to lack of measurable tricuspid regurgitation. Adult Echocardiography Procedure Report Left Ventricle LVEDD (3.7 - 5.6 cm): 4.26 cm LVESD (2.2 - 4.0 cm): 2.84 cm LVIVS thickness (0.6 - 1.2 cm): 1.01 cm LVPW thickness (0.5 - 1.0 cm): 1.27 cm e': 0.10 m/s E - e': 8.40 LVOT Max Gradient: 4.10 mm[Hg] LVOT Area (cm2): 1.01 m/s Peak Velocity (LVOT): 1.01 m/s Mean Velocity (LVOT): 0.69 m/s LVOT Diameter 2.57 cm Left Ventricular Ejection Fraction: 55-60 % Left Atrium LA Volume Index (2D A2C): 21.87 ml/m2 Left Atrium Systolic Dimension: 3.21 cm Mitral Valve MV E to A Ratio: 0.74 Mitral Valve A-Wave Peak Velocity: 1.08 m/s Mitral Valve E-Wave Peak Velocity: 0.80 m/s Right Ventricle Aorta AO Root Diam: 3.31 cm Aortic Valve AoV Area (Peak Jimy): 3.21 cm2, 3.21 cm2 AoV Area (VTI): 2.66 cm2, 2.66 cm2 Peak Velocity(Antegrade Flow): 1.63 m/s Peak Gradient(Antegrade Flow): 10.65 mm[Hg] Mean Velocity(Antegrade Flow): 0.97 m/s Mean Gradient(Antegrade Flow): 4.83 mm[Hg] Velocity Time Integral: 28.92 cm Tricuspid Valve Pulmonic Valve Peak Gradient: 4.09 mm[Hg], 3.48 mm[Hg] Right Atrium Right Atrium Systolic Pressure: 43.22 ml, 43.22 ml Dictated by: Sandor Rodas M.D. on 04/30/2025 at 18:38 Approved by: Sandor Rodas M.D. on 04/30/2025 at 18:40
--- OUTSIDE RECORDS SUMMARY | 2025-04-30 17:10 | XMS_ITS | CCD ---
[facility] Team Providers Care Kaitara Taraka Name Role Phone MD Joni Hernandez Primary Care Provider [phone] MD Joni Hernandez Attending Provider Joni Hernandez Primary Care Physician BETH ., DR QUINONES Admitting Unavailable HOY ., [...] GRECHNY ., MATTHEW FERGUSON Consulting Unavailabl e ESTEBAN ., DR GARNER Admitting Unavailable HAY ., [...] BETH ., DR QUINONES Primary Care Unavailable Joni Hernandez MD Primary Care Provider [phone] Baltazar Cartagena MD Attending Provider Joni Hernandez Primary Care Unavailable Nill, Baltazar R Attending Unavailable Nill, Baltazar R Admitting Unavailable NILL, Baltazar R Attending Unavailable NILL, Baltazar R Attending Unavailable Joni Hernandez Referring Unavailable NILL, Baltazar R Attending Unavailable ELTAHAWY, EHAB Admitting Unavailable ELTAHAWY, EHAB Attending Unavailable ELTAHAWY, EHAB Attending Unavailable ELTAHAWY, EHAB Referring Unavailable ELTAHAWY, EHAB Referring Unavailable Allergies Allergy Classification Reported Allergen(s) Allergy Type Date of Onset Reaction(s) Facility (6 sources) atorvastatin; Translations: [atorvastatin] Drug Allergy 03-21-20 25 Cramp (finding) [facility] (6 sources) Clindamycin; Translations: [clindamycin] Drug Allergy 03-21-20 25 Eruption of skin (disorder) [facility] (5 sources) Sulfonamides (Antibiotic); Translations: [sulfa drugs] Drug allergy Eruption (morphologic abnormality) [facility] (1 source) Bacitracin / Neomycin / Polymyxin B Drug Allergy [facility] (1 source) Clindamycin Drug Allergy [facility] (1 source) Dextroamphetamine Drug Allergy [facility] (3 sources) Morphine; Translations: [morphine] Drug Allergy 02-09-20 23 [facility] (1 source) Sulfonamides (Antibiotic) Drug allergy (disorder) [facility] (2 sources) Morphine; Translations: [morphine] Drug Allergy 02-09-20 23 Unknown [facility] Medications Current Medications Medication Drug Class(es) Dates [...] Corticosteroid Start: 09-03-2024 Flonase 0.05 m g/inh Peculiar 1 spray(s), Nasal, Daily, Refill(s) 0 Start Date: 09/03/24 Status: Ordered Start: 08-25-2022 Flonase 0.05 m g/inh Peculiar 1 spray(s), Nasal, BID, Refill(s) 0 Start [...] sources) Anxiety; Translations: [Anxiety disorder, unspecified] Onset: 05-08-25-2022 Chronic Asthma (4 sources) Asthma 08-25-2022 Chronic Calculus of urinary tract (5 sources) History of calculus of kidney; Translations: [Personal history of urinary calculi] Onset: 02-17-2008-25-2022 Episodic Coronary atherosclerosis and other heart disease (1 source) Atherosclerotic heart disease of [place] coronary artery without angina pectoris; Translations: [ASHD UNGA CA W/O ANGINA PECTORIS] Onset: 02-17-20 Chronic [...] QUADRANT] Onset: 02-17-20 Episodic Nonspecific chest pain (6 sources) Chest pain, unspecified; Translations: [Other chest pain] Onset: 02-10-20 Episodic Nutritional deficiencies (5 sources) Vitamin D deficiency; Translations: [Vitamin D deficiency, unspecified] Onset: 09-29-19 23 08-25-2022 Chronic Other aftercare (1 source) [facility] (current) use of aspirin; Translations: [[facility] CURRENT USE OF ASPIRIN] Onset: 02-17-20 Episodic Other aftercare (1 source) 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; Translations: [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 PV DESIGN ENGINEER CURRENT DRUG THERAPY] Onset: 02-17-20 Episodic Other [...] conditions (not mental disorders or infectious disease) (5 sources) Other specified abnormal findings of blood chemistry; Translations: [Abnormal result of other cardiovascular function study] Onset: 02-17-20 Episodic Other skin disorders (4 [...] [CONTACT W/AND (SUSP) EXPOS COVID-19] Onset: 09-23-19 Unclassified (1 source) 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; Translations: [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] Onset: 04-05-20 Past or Other Problems Problem Classification Problem [...] unspecified; Translations: [INSOMNIA UNSPECIFIED] Onset: 09-29-2022 Episodic Unclassified (1 source) 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 GC: I personally saw this patient on the day of the encounter, performed the [place] portion(s) of the service and participated in the management and confirm the resident's documentation. Please note there may be an additional personal documentation from me. Additional Comments: Stuart Suarez MD, MPH, [facility], [facility], [facility] Interventional Cardiology Pager Email: [email or web address] Patient: Hina Schultz Pre-sedation Evaluation: Moderate, conscious sedation for coronary angiography and right heart catheterization. History of Present Illness: 59 year old male with no known cardiac history, medical history of HTN, HLD. He presented to our clinic with concern for progressive dyspnea on exertion and chest pain. Pain is left sided, pressure-like, moderate in severity, with occasional radiation down the left arm. 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 A stress test was performed on 03/20/25 and revealed concern for an inferior reversible defect. He presented today for planned for planned coronary angiography and right heart catheterization. On evaluation in pre-procedure, he reports persistent dyspnea with exertion, denies active chest pain, nausea, diaphoresis, palpitations. Home medications are statin and ACEi therapy. A1c 6.2%, LDL 89, serum Cr 1.3. 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 CEFERINO (obstructive sleep apnea) 03/21/2025 Paresthesia 03/21/2025 Prediabetes 03/21/2025 Rectal bleeding 03/21/2025 Rectal pain 03/21/2025 Senile hyperkeratosis 03/21/2025 Skin tag 03/21/2025 Transient cerebral ischemia 03/21/2025 Vitamin D deficiency 03/21/2025 Abnormal stress test 03/21/2025 Other chest pain 03/21/2025 Abnormal findings on diagnostic imaging of heart and coronary circulation 03/21/2025 Allergies: Allergies[2] 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 Recent sedation/surgery (24 hours) No Review of Systems: Please check all that apply: Cardiac Disease, Obstructive Sleep Apnea, and Obesity test completed prior to procedure on any menstruating female: NPO guidelines met: No Physical Exam Airway Mallampati: IV TM distance: >3 FB Cardiovascular Rhythm: regular Rate: normal Dental Pulmonary Breath sounds clear to auscultation Plan ASA 3 Moderate Mr Schultz is agreeable to proceed with coronary angiography and RHC. Consent for blood products obtained. Risks, benefits, and alternatives to procedure discussed with patient in detail who expressed understanding and agreed to proceed. Risks discussed include bleed, infection, kidney damage/failure, stroke, heart attack, . [1] Past Medical History: Diagnosis Date Abnormal ECG Allergic rhinitis Anxiety Diverticulitis Dizziness BRAUN (dyspnea on exertion) Esophageal reflux HTN (hypertension) 03/21/2025 Hyperlipidemia Insomnia Kidney stone Memory loss Near syncope Over weight Prediabetes Shortness of breath Sleep apnea [2] Allergies Allergen Reactions Atorvastatin Unknown Morphine Unknown Clindamycin Rash [3] Medications Prior to Admission Medication Sig Dispense Refill Last Dose/Taking aspirin 81 mg EC tablet Take 81 mg by mouth in the morning. 04/05/2025 Morning diclofenac (Voltaren) 75 mg EC tablet Take 75 mg by mouth two times daily. 04/04/2025 Dulera 100-5 mcg/actuation inhaler Inhale 2 puffs two times daily. 04/04/2025 DULoxetine (Cymbalta) [address] capsule Take 60 mg by mouth in the morning. Do not crush or chew. 04/04/2025 lisinopril 40 mg tablet Take 40 mg by mouth in the morning. 04/04/2025 loratadine-pseudoephedrine (Claritin-D 24-hour) 10-240 mg (more content not included)... [facility] HPon 04-05-2025 HP --------- Attestation signed by Stuart Suarez MD at 04/05/2025 9:28 AM By using the attestations below, the signing clinician agrees that I have read and verify that the documentation has been personally reviewed by me and ensure that the documentation accurately reflects the encounter. GC: I personally saw this patient on the day of the encounter, performed the [place] portion(s) of the service and participated in the management and confirm the resident's documentation. Please note there may be an additional personal documentation from me. Additional Comments: Stuart Suarez MD, MPH, FACC, [facility], [facility] Interventional Cardiology Pager Email: [email or web address] H&P reviewed. The patient was examined and there are no changes to the H&P. 59 year old male with no known cardiac history, medical history of HTN, HLD. He presented to our clinic with concern for progressive dyspnea on exertion and chest pain. Pain is left sided, pressure-like, moderate in severity, with occasional radiation down the left arm. 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 A stress test was performed on 03/20/25 and revealed concern for an inferior reversible defect. He presented today for planned for planned coronary angiography and right heart catheterization. On evaluation in pre-procedure, he reports persistent dyspnea with exertion, denies active chest pain, nausea, diaphoresis, palpitations. Home medications are statin and ACEi therapy. A1c 6.2%, LDL 89, serum Cr 1.3. Mr Schultz is agreeable to proceed with coronary angiography and RHC. Consent for blood products obtained. Risks, benefits, and alternatives to procedure discussed with patient in detail who expressed understanding and agreed to proceed. Risks discussed include bleed, infection, kidney damage/failure, stroke, heart attack, . [facility] NURSNOTEon 04-05-2025 NURSNOTE RN educated pt on d/ c instructions. This included: site care, limited physical activity, resume normal diet, future appointments, medications, and moderate sedation instructions. RN educated pt on when to notify physician and when to go to the hospital. RN provided pt with arm sling and educated pt on importance of not using arm for 24 hours for radial sites. RN encouraged pt to voice any questions or concerns, and answered any questions or concerns if pt verbalized. Pt was wheeled off of unit with all of belongings. [facility] Cardiology Clinic Note Chief Complaint: New patient here to establish care. Ref from Dr. Hernandez for abnormal stress test. Says test was ordered for BRAUN and palpitations. Has had some intermittent chest pain but nothing that stands out right now . Says he gets lots of lightheadedness/dizziness. Father had NV in his 60's. HPI: Hina Schultz is a 59 y.o. male With a history of hypertension, dyslipidemia here due to an abnormal stress test For the past several weeks, he has noticed exertional shortness of breath and chest tightness particular when he exerts himself. He has to rest for the discomfort to go away. He describes numbness in both arms with exertion. No radiation to the back or throat. He has no orthopnea or paroxysmal current dyspnea, he has no significant lower extremity edema. 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 When performing this recently he had the symptoms of chest pressure and shortness of breath. Cardiology ROS: Review of Systems Cardiovascular: Positive for chest pain (intermittent), dyspnea on exertion, irregular heartbeat and palpitations. Musculoskeletal: Positive for back pain and myalgias. Neurological: Positive for dizziness and light-headedness. All other systems reviewed and are negative. Past Medical History He has a past medical history of Allergic rhinitis, Anxiety, Diverticulitis, Dizziness, BRAUN (dyspnea on exertion), Esophageal reflux, HTN (hypertension) (03/21/2025), Insomnia, Kidney stone, Memory loss, Near syncope, Over weight, Prediabetes, Shortness of breath, and Sleep apnea. Surgical History He has a past surgical history that includes Colonoscopy; Cystoscopy; and Lithotripsy. Social History He reports that he has never smoked. He has never used smokeless tobacco. No history on file for alcohol use and drug use. Family History Family History[1] Allergies Atorvastatin, Morphine, and Clindamycin Medications Current Medications[2] Last Recorded Vitals BP 117/85 (BP Location: Right arm, Patient Position: Sitting) Pulse 84 Ht 1.727 m (5' 8 ) Wt 106 kg (233 lb) SpO2 97% BMI 35.43 kg/m??? Physical Examination: GENERAL: alert and oriented x3, well developed, in no acute distress. HEAD: atraumatic, normocephalic. EYES: KINGSLEY, EOMI. NECK: trachea midline, no JVD present, no carotid bruits present. CARDIAC: S1, S2 present. RRR. No murmur, rubs, or gallops. RESPIRATORY: CTAB, no increased effort of breathing, no rales, rhonchi, or wheezing. ABDOMEN: soft, nontender, nondistended. EXTREMITIES: no lower extremity edema, peripheral pulses are 2+ bilaterally. No rash/skin discoloration present. NEURO: strength/sensation equal and symmetric in bilateral upper and lower extremities. PSYCH: appropriate mood, affect, and judgement. INVESTIGATIONS Labs 03/08/2025: BUN 17, creatinine 1.31 HbA1c 6.2 Total cholesterol 169, triglycerides 104, LDL 95.2, HDL 53 TSH normal, free T4 normal, free T3 is low at 1.93 Stress test 03/20/2025: Maximal stress test achieving 85% of maximal predicted heart rate Normal heart rate and blood pressure response to exercise The stress test is negative for exercise-induced ischemic symptoms, EKG changes or arrhythmias Nuclear images conclusion: Abnormal myocardial perfusion stress test showing evidence of inferior ischemia Normal left ventricular systolic function, ejection fraction 65% No transient ischemic dilation EKG portion of stress test reported separately Assessment: Unstable angina Exertional shortness of breath Family history of premature coronary artery disease Palpitations, Lightheadedness and dizziness Hypertension Dyslipidemia Abnormal stress test; Inferior ischemia Plan: Given the patient's risk factor profile, his symptoms, and abnormal stress test, I recommended proceeding with cardiac catheterization Routine precath labs Right heart catheterization and coronary angiography via right internal jugular and left radial approach will be scheduled in the coming 1 to 2 weeks He is to limit exertional activities until cardiac catheterization Further recommendations pending the cardiac catheterization Stuart Suarez MD, MPH, [facility], [facility], [facility] Interventional Cardiology Pager Email: [email or web address] [1] Family History Problem Relation Name Age of Onset Cancer Mother Cancer Father [2] Current Outpatient Medications: diclofenac (Voltaren) 75 mg EC tablet, Take 75 mg by mouth two times daily., Disp: , Rfl: Dulera 100-5 mcg/actuation inhaler, Inhale 2 puffs in the morning and at bedtime., Disp: , Rfl: lisinopril 40 mg tablet, Take 40 mg by mouth in the morning., Disp: , Rfl: loratadine-pseudoephedrine (Claritin-D 24-hour) 10-240 mg 24 hr tablet, Take 1 tablet by mouth if needed each day., Disp: , Rfl: pantoprazole (ProtoNix) 40 mg EC tablet, Take 40 mg by mouth before breakfast., Disp: , Rfl: simmegantalin (more content not included)... Normal [facility] Office Visiton 03-21-2025 Follow-up visit [id number] Hina Schultz 1965 M Date Provider Department Center 03/21/2025 [id number], EHAB CARD [facility] Family History Problem Relation Age of Onset Cancer Mother Cancer Father Heart attack Father Family Status - Relation Status Age at Mother Father Sister Alive Brother Alive Level of Service:[id number] [place] OFFICE/OUTPATIENT [facility] 60 MINUTES [facility] Orders Onlyon 03-21-2025 Orders Only [id number] Hina Schultz 1965 [facility] Provider Department Center 03/21/2025 [id number], HISTORICAL CARD [facility] Family History Problem Relation Age of Onset Cancer Mother Cancer Father Heart attack Father Family Status - Relation Status Age at Mother Father Sister Alive Brother Alive [facility] Reminderson 10-10-2024 Reminders Reminders From: Virginie Ch LPN To: N - Clinical; Sent: 10/10/2024 14:57:12 EST Show up: 08/26/2034 07:00:00 EST Subject: colonoscopy recall Due Date/Time: 09/26/2034 07:00:00 EST Reminder/Recall Patient due for screening colonoscopy 09/26/2034. Normal [facility] Brian 09-26-2024 L --------- ----- Specimen: [id number] Received: 09/27/24 Status: SHOSHANA De Leon Num: [id number] Spec Type: Surgical Subm Dr: Baltazar Cartagena MD FACS Tissues: A Colon Biopsy (RECTAL POLYP) Procedures: ANJALI, Gross/Micro L4 ----- Age/ Patient Sex Location Account Attending Physician ----- Hina Schultz/M LABELL [id number] Baltazar Cartagena MD FACS ----- SPEC NUM: [id number] RECD: 09/27/24 STATUS: SHOSHANA GOYALFlori NUM: [id number] GALLO: 09/26/24-[address] [facility] [address]: Baltazar Cartagena MD FACS ENTERED: 09/27/24-[address] [facility] [address]: Santino Laguerre SPEC TYPE: Surgical DEPT: FLORINA WILKERSON ENTERED BY: [id number] RECV BY: [id number] ORDERED: OBI/Oscar, Gross/Micro L4 ORDERED: OBIOscar, Gross/Micro L4 Pathological Diagnosis Rectum, polypectomy: - Hyperplastic polyp. Clinical Information Sigmoid diverticulosis, rectal polyp Gross Description Received in formalin labeled with the patients name, date of , and rectal polyp is a ibrahim-prabhakar, focally erythematous, friable, 0.3 cm in greatest dimension polypoid fragment. The specimen is entirely submitted in a single cassette. (1, ns, S25-10 A) Microscopic Description Microscopic examination is performed. CPT Codes 63893 ----- ----- Specimen: [id number] Received: 09/27/24 Status: SHOSHANA De Leon Num: [id number] Spec Type: Surgical Subm Dr: Baltazar Cartagena MD FACS Tissues: A Colon Biopsy (RECTAL POLYP) Procedures: OIB/Oscar, Gross/Bryan L4 ----- Patient: AntoineHina [id number] (Continued) ----- Signed (signature on file) Doug Bush MD 09/28/24 1009 Normal [facility] Ambulatory Visit Summaryon 1 11-05-2023 Ambulatory Visit Summary Ambulatory Visit Summary HINA SCHULTZ :1965 Visit Date:09/04/2024 Ambulatory Visit Instructions Your Care Team Attending Physician - TONY WHITESIDE, Baltazar Townsend Primary Care Physician - Joni Hernandez MD Referring Physician - Joni Hernandez MD This Is Your Medications List Contact prescribing physician if questions or concerns albuterol (Ventolin HFA 90 mcg/inh Aerosol-Adpt) aspirin (aspirin 325 mg Oral EC Tab) diclofenac (diclofenac sodium 75 mg Oral EC Tab) duloxetine (Cymbalta 60 mg Cap-DR) famotidine (Pepcid 40 mg Tab) fluticasone nasal (Flonase 0.05 mg/inh Peculiar) fluticasone nasal (Flonase 0.05 mg/inh Peculiar) formoterol-mometasone (Dulera 100 mcg-5 mcg/inh inhalation aerosol) [...] Unchanged fluticasone nasal (Flonase 0.05 mg/ inh Peculiar) 1 Sprays Nasal Inhalation Every day Contact prescribing physician if questions or concerns Unchanged fluticasone nasal (Flonase 0.05 mg/ inh Peculiar) 1 Sprays Nasal Inhalation 2 times a [...] for choosing us for your care. Normal [facility] BNPon 02-10-2023 Natriuretic peptide B (Bld) [Mass/Vol] 13.0 pg/mL Normal <=900.0 [facility] Comment on above: Performed By: #### CMP, BNP #### [facility] [address] [address] [address] Irene Nina CBC AUTO DIFFon 02-10-2023 BASO # 0.1 103/ul Normal 0.0-0.1 [facility] Comment on above: Performed By: #### PT, DDIM, PTT #### [facility] [address] [address] [address] Irene Nina Basophils/100 WBC (Bld) 0.9 % Normal 0.2-2.0 [facility] Comment on above: Performed By: #### PT, DDIM, PTT #### [facility] [address] [address] [address] Irene Nina EO # 0.4 103/ul Normal 0.0-0.7 [facility] Comment on above: Performed By: #### PT, DDIM, PTT #### [facility] [address] [address] [address] Irene Nina Eosinophils/100 WBC (Bld) 5.2 % Normal 0.9-7.0 [facility] Comment on above: Performed By: #### PT, DDIM, PTT #### [facility] [address] [address] [address] Irene Nina Erythrocyte distribution width (RBC) [Ratio] 13.2 % Normal 11.0-15.0 [facility] Comment on above: Performed By: #### PT, DDIM, PTT #### [facility] [address] [place] [address] Dr. Irene Nina Hematocrit (Bld) [Volume fraction] 43.4 % Normal 42.0-54.0 [facility] Comment on above: Performed By: #### PT, DDIM, PTT #### [facility] [address] [place] [address] Dr. Irene Nina Hemoglobin (Bld) [Mass/Vol] 14.0 g/dL Normal 14.0-18.0 [facility] Comment on above: Performed By: #### PT, DDIM, PTT #### [facility] [address] [place] [address] Dr. Irene Nina IG # 0.10 10e3/ul Critically high 0.00-0.03 [facility] Comment on above: Performed By: #### PT, DDIM, PTT #### [facility] [address] [place] [address] Dr. Irene Nina IG % 1.3 % Critically high 0.0-0.5 [facility] Comment on above: Performed By: #### PT, DDIM, PTT #### [facility] [address] [place] [address] Dr. Irene Nina LYMPH # 2.7 103/ul Normal 1.2-3.8 [facility] Comment on above: Performed By: #### PT, DDIM, PTT #### [facility] [address] [place] [address] Dr. Irene Nina Lymphocytes/100 WBC (Bld) 34.8 % Normal 20.5-60.0 [facility] Comment on above: Performed By: #### PT, DDIM, PTT #### [facility] [address] [place] [address] Dr. Irene Nina MANUAL DIFF REQ NO Normal [facility] Comment on above: Performed By: #### PT, DDIM, PTT #### [facility] [address] [place] [address] Dr. Irene Nina MCH (RBC) [Entitic mass] 27.7 pg Normal 25.9-34.0 [facility] Comment on above: Performed By: #### PT, DDIM, PTT #### [facility] [address] [place] [address] Dr. Irene Nina MCHC (RBC) [Mass/Vol] 32.3 g/dL Normal 29.9-35.2 [facility] Comment on above: Performed By: #### PT, DDIM, PTT #### [facility] [address] [place] [address] Dr. Irene Nina MCV (RBC) [Entitic vol] 85.8 fL Normal 80.0-94.0 [facility] Comment on above: Performed By: #### PT, DDIM, PTT #### [facility] [address] [place] [address] Dr. Irene Nina MONO # 0.6 103/ul Normal 0.3-0.8 [facility] Comment on above: Performed By: #### PT, DDIM, PTT #### [facility] [address] [place] [address] Dr. Irene Nina Monocytes/100 WBC (Bld) 7.7 % Normal 1.7-12.0 [facility] Comment on above: Performed By: #### PT, DDIM, PTT #### [facility] [address] [place] [address] Dr. Irene Nina NEUT # 3.9 103/ul Normal 1.4-6.5 [facility] Comment on above: Performed By: #### PT, DDIM, PTT #### [facility] [address] [place] [address] Dr. Irene Nina Neutrophils/100 WBC (Bld) 50.1 % Normal 43.0-75.0 [facility] Comment on above: Performed By: #### PT, DDIM, PTT #### [facility] [address] [place] [address] Dr. Irene Nina Platelet mean volume (Bld) [Entitic vol] 9.5 fL Normal 9.5-13.5 [facility] Comment on above: Performed By: #### PT, DDIM, PTT #### [facility] [address] [place] [address] Dr. Irene Nina PLT 239 103/ul Normal 150-450 [facility] Comment on above: Performed By: #### PT, DDIM, PTT #### [facility] [address] [place], [place] [address] Dr. Irene Nina RBC 5.06 106/ul Normal 4.70-6.10 [facility] Comment on above: Performed By: #### PT, DDIM, PTT #### [facility] [address] [place], [place] [address] Dr. Irene Nina WBC 7.8 103/ul Normal 4.0-11.0 [facility] Comment on above: Performed By: #### PT, DDIM, PTT #### [facility] [address] [place], [place] [address] Dr. Irene Nina ECHOCARDIO M/2D COMPLETEon 0 02-10-2023 ECHOCARDIO M/2D COMPLETE Patient: HINA SCHULTZ Exam Date: 02/10/2023 : 1965 Gender:M Ordering : DR JONI HERNANDEZ . Admission #: [id number] Family : Order #: [id number] CLICK HERE TO VIEW EXAM ECHOCARDIOGRAM REPORT [...] M.D. on 02/13/2023 at 14:57 Normal [facility] PROF 14(COMP METB)on 023 Albumin [Mass/Vol] 3.5 g/dL Normal 3.4-5.0 [facility] Comment on above: Performed By: #### CMP, BNP #### [facility] [address] [place] [address] Dr. Irene Nina Albumin/Globulin [Mass ratio] 1.1 {ratio} Normal [facility] Comment on above: Performed By: #### CMP, BNP #### [facility] [address] [place] [address] Dr. Irene Nina ALP [Catalytic activity/Vol] 63 U/L Normal 46-116 [facility] Comment on above: Performed By: #### CMP, BNP #### [facility] [address] [place] [address] [address] Irene Nina ALT [Catalytic activity/Vol] 72 U/L Critically high 16-63 [facility] Comment on above: Performed By: #### CMP, BNP #### [facility] [address] [place] [address] [address] Irene Nina Anion gap [Moles/Vol] 10.9 mmol/L Normal [facility] Comment on above: Performed By: #### CMP, BNP #### [facility] [address] [place] [address] [address] Irene Nina AST [Catalytic activity/Vol] 35 U/L Normal 15-37 [facility] Comment on above: Performed By: #### CMP, BNP #### [facility] [address] [place] [address] [address] Irene Nina Bilirubin [Mass/Vol] 0.4 mg/dL Normal 0.2-1.0 [facility] Comment on above: Performed By: #### CMP, BNP #### [facility] [address] [place] [address] [address] Irene Nina Calcium [Mass/Vol] 9.2 mg/dL Normal 8.5-10.1 [facility] Comment on above: Performed By: #### CMP, BNP #### [facility] [address] [place] [address] [address] Irene Nina Chloride [Moles/Vol] 105 mmol/L Normal 98-107 [facility] Comment on above: Performed By: #### CMP, BNP #### [facility] [address] [place] [address] [address] Irene Nina CO2 [Moles/Vol] 30.2 mmol/L Normal 21.0-32.0 [facility] Comment on above: Performed By: #### CMP, BNP #### [facility] [address] [place] [address] [address] Irene Nina Creatinine [Mass/Vol] 1.43 mg/dL Critically high 0.70-1.30 [facility] Comment on above: Performed By: #### CMP, BNP #### [facility] [address] [place] [address] [address] Irene Nina EGFR-AF BARBADIAN >60 Normal >=60 [facility] Comment on above: Performed By: #### CMP, BNP #### [facility] [address] [place] [address] [address] Irene Nina EGFR-NON AF BARBADIAN 51 mL/min/1.73m2 Critically low >=60 [facility] Comment on above: Performed By: #### CMP, BNP #### [facility] [address] [place] [address] [address] Irene Nina Globulin (S) [Mass/Vol] 3.3 g/dL Normal [facility] Comment on above: Performed By: #### CMP, BNP #### [facility] [address] [place] [address] [address] Irene Nina Glucose [Mass/Vol] 100 mg/dL Normal 74-106 [facility] Comment on above: Performed By: #### CMP, BNP #### [facility] [address] [place] [address] [address] Irene Nian Potassium [Moles/Vol] 4.1 mmol/L Normal 3.5-5.1 [facility] Comment on above: Performed By: #### CMP, BNP #### [facility] [address] [place] [address] Dr. Irene Nina Protein [Mass/Vol] 6.8 g/dL Normal 6.4-8.2 [facility] Comment on above: Performed By: #### CMP, BNP #### [facility] [address] [place] [address] Dr. Irene Nina Sodium [Moles/Vol] 142 mmol/L Normal 136-145 [facility] Comment on above: Performed By: #### CMP, BNP #### [facility] [address] [place] [address] Dr. Irene Nina Urea nitrogen [Mass/Vol] 14.0 mg/dL Normal 7.0-18.0 [facility] Comment on above: Performed By: #### CMP, BNP #### [facility] [address] [place] [address] Dr. Irene Nina Urea nitrogen/Creatin ine [Mass ratio] 9.8 mg/mg Normal [facility] Comment on above: Performed By: #### CMP, BNP #### [facility] [address] [place] [address] Dr. Irene Nina BNPon 02-09-2023 Natriuretic peptide B (Bld) [Mass/Vol] 20.0 pg/mL Normal <=900.0 [facility] Comment on above: Performed By: #### CMP, BNP, HSTROPN ### # [facility] [address] [place] [address] Dr. Irene Nina CARDIAC MP 3-6on 3 CK [Catalytic activity/Vol] 117 U/L Normal 39-308 [facility] Comment on above: Performed By: #### PT, DDIM, PTT #### [facility] [address] [place] [address] Dr. Irene Nina CK.MB [Mass/Vol] 0.99 ng/mL Normal <=3.60 [facility] Comment on above: Performed By: #### PT, DDIM, PTT #### [facility] [address] [place] [address] Dr. Irene Nina HSTROP 9.6 pg/mL Normal 4.0-76.1 [facility] Comment on above: Result Comment: CUT-OFF POINTS HAVE BEEN ESTABLISHED BASED ON THE FOURTH UNIVERSAL DEFINITIONS OF MYOCARDIAL INFARCTION. THE UPPER REFERENCE LIMIT (URL) OF TROPONIN, DEFINED THE 99TH PERCENTILE OF cTnI DISTRIBUTION IN A REFERENCE POPULATION, HAS BEEN CONFIRMED THE DECISION THRESHOLD FOR [place] DIAGNOSIS. Performed By: #### P T, DDIM, PTT #### [facility] [address] [place] [address] Dr. Irene Nina CK [Catalytic activity/Vol] 132 U/L Normal 39-308 [facility] Comment on above: Performed By: #### PT, DDIM, PTT #### [facility] [address] [place] [address] Dr. Irene Nina CK.MB [Mass/Vol] 1.10 ng/mL Normal <=3.60 [facility] Comment on above: Performed By: #### PT, DDIM, PTT #### [facility] [address] [place] [address] Dr. Irene Nina HSTROP 10.2 pg/mL Normal 4.0-76.1 [facility] Comment on above: Result Comment: CUT-OFF POINTS HAVE BEEN ESTABLISHED BASED ON THE FOURTH UNIVERSAL DEFINITIONS OF MYOCARDIAL INFARCTION. THE UPPER REFERENCE LIMIT (URL) OF TROPONIN, DEFINED THE 99TH PERCENTILE OF cTnI DISTRIBUTION IN A REFERENCE POPULATION, HAS BEEN CONFIRMED THE DECISION THRESHOLD FOR [place] DIAGNOSIS. Performed By: #### P T, DDIM, PTT #### [facility] [address] [place] [address] Dr. Irene Nina CBC AUTO DIFFon 02-09-2023 BASO # 0.1 103/ul Normal 0.0-0.1 [facility] Comment on above: Performed By: #### PT, DDIM, PTT #### [facility] [address] [place] [address] Dr. Irene Nina Basophils/100 WBC (Bld) 1.1 % Normal 0.2-2.0 [facility] Comment on above: Performed By: #### PT, DDIM, PTT #### [facility] [address] [place] [address] Dr. Irene Nina EO # 0.4 103/ul Normal 0.0-0.7 [facility] Comment on above: Performed By: #### PT, DDIM, PTT #### [facility] [address] [place] [address] Dr. Irene Nina Eosinophils/100 WBC (Bld) 5.0 % Normal 0.9-7.0 [facility] Comment on above: Performed By: #### PT, DDIM, PTT #### [facility] [address] [place] [address] Dr. Irene Nina Erythrocyte distribution width (RBC) [Ratio] 13.2 % Normal 11.0-15.0 [facility] Comment on above: Performed By: #### PT, DDIM, PTT #### [facility] [address] [place] [address] Dr. Irene Nina Hematocrit (Bld) [Volume fraction] 44.8 % Normal 42.0-54.0 [facility] Comment on above: Performed By: #### PT, DDIM, PTT #### [facility] [address] [place] [address] Dr. Irene Nina Hemoglobin (Bld) [Mass/Vol] 14.6 g/dL Normal 14.0-18.0 [facility] Comment on above: Performed By: #### PT, DDIM, PTT #### [facility] [address] [address] [address] Irene Nina IG # 0.05 10e3/ul Critically high 0.00-0.03 [facility] Comment on above: Performed By: #### PT, DDIM, PTT #### [facility] [address] [address] [address] Irene Nina IG % 0.7 % Critically high 0.0-0.5 [facility] Comment on above: Performed By: #### PT, DDIM, PTT #### [facility] [address] [place] [address] [address] Irene Nina LYMPH # 2.1 103/ul Normal 1.2-3.8 [facility] Comment on above: Performed By: #### PT, DDIM, PTT #### [facility] [address] [place] [address] Dr. Irene Nina Lymphocytes/100 WBC (Bld) 28.6 % Normal 20.5-60.0 [facility] Comment on above: Performed By: #### PT, DDIM, PTT #### [facility] [address] [place] [address] Dr. Irene Nina MANUAL DIFF REQ NO Normal [facility] Comment on above: Performed By: #### PT, DDIM, PTT #### [facility] [address] [place] [address] [address] Irene Nina MCH (RBC) [Entitic mass] 28.0 pg Normal 25.9-34.0 [facility] Comment on above: Performed By: #### PT, DDIM, PTT #### [facility] [address] [place] [address] Dr. Irene Nina MCHC (RBC) [Mass/Vol] 32.6 g/dL Normal 29.9-35.2 [facility] Comment on above: Performed By: #### PT, DDIM, PTT #### [facility] [address] [place] [address] Dr. Irene Nina MCV (RBC) [Entitic vol] 85.8 fL Normal 80.0-94.0 [facility] Comment on above: Performed By: #### PT, DDIM, PTT #### [facility] [address] [place] [address] Dr. Irene Nina MONO # 0.5 103/ul Normal 0.3-0.8 [facility] Comment on above: Performed By: #### PT, DDIM, PTT #### [facility] [address] [place] [address] Dr. Irene Nina Monocytes/100 WBC (Bld) 6.5 % Normal 1.7-12.0 [facility] Comment on above: Performed By: #### PT, DDIM, PTT #### [facility] [address] [place] [address] Dr. Irene Nina NEUT # 4.2 103/ul Normal 1.4-6.5 [facility] Comment on above: Performed By: #### PT, DDIM, PTT #### [facility] [address] [place] [address] Dr. Irene Nina Neutrophils/100 WBC (Bld) 58.1 % Normal 43.0-75.0 [facility] Comment on above: Performed By: #### PT, DDIM, PTT #### [facility] [address] [place] [address] Dr. Irene Nina Platelet mean volume (Bld) [Entitic vol] 9.8 fL Normal 9.5-13.5 [facility] Comment on above: Performed By: #### PT, DDIM, PTT #### [facility] [address] [place] [address] Dr. Irene Nina PLT 245 103/ul Normal 150-450 [facility] Comment on above: Performed By: #### PT, DDIM, PTT #### [facility] [address] [place] [address] Dr. Irene Nina RBC 5.22 106/ul Normal 4.70-6.10 [facility] Comment on above: Performed By: #### PT, DDIM, PTT #### [facility] [address] [place], [place] [id number] Dr. Irene Nina WBC 7.2 103/ul Normal 4.0-11.0 [facility] Comment on above: Performed By: #### PT, DDIM, PTT #### [facility] [address] [place] [address] Dr. Irene Nina D-DIMERon 02-09-2023 D-DIMER 0.51 mg/L FEU Normal <=0.59 The [facility] Comment on above: Performed By: #### PT, DDIM, PTT #### [facility] [address] [place] [address] Dr. Irene Nina D-DIMER COMMENTS SEE BELOW Normal [facility] Comment on above: Result Comment: Increases [...] By: #### P T, DDIM, PTT #### [facility] [address] [place] [address] Dr. Irene Nina PROF 14(COMP METB)on 023 Albumin [Mass/Vol] 3.9 g/dL Normal 3.4-5.0 [facility] Comment on above: Performed By: #### CMP, BNP, HSTROPN ### # [facility] [address] [place] [address] Dr. Irene Nina Albumin/Globulin [Mass ratio] 1.1 {ratio} Normal [facility] Comment on above: Performed By: #### CMP, BNP, HSTROPN ### # [facility] [address] [place] [address] Dr. Irene Nina ALP [Catalytic activity/Vol] 67 U/L Normal 46-116 [facility] Comment on above: Performed By: #### CMP, BNP, HSTROPN ### # [facility] [address] [place] [address] [address] Irene Nina ALT [Catalytic activity/Vol] 68 U/L Critically high 16-63 [facility] Comment on above: Performed By: #### CMP, BNP, HSTROPN ### # [facility] [address] [place] [address] [address] Irene Nina Anion gap [Moles/Vol] 9.4 mmol/L Normal [facility] Comment on above: Performed By: #### CMP, BNP, HSTROPN ### # [facility] [address] [place] [address] [address] Irene Nina AST [Catalytic activity/Vol] 30 U/L Normal 15-37 [facility] Comment on above: Performed By: #### CMP, BNP, HSTROPN ### # [facility] [address] [place] [address] [address] Irene Nina Bilirubin [Mass/Vol] 0.5 mg/dL Normal 0.2-1.0 [facility] Comment on above: Performed By: #### CMP, BNP, HSTROPN ### # [facility] [address] [place] [address] [address] Irene Nina Calcium [Mass/Vol] 9.2 mg/dL Normal 8.5-10.1 [facility] Comment on above: Performed By: #### CMP, BNP, HSTROPN ### # [facility] [address] [place] [address] [address] Irene Nina Chloride [Moles/Vol] 105 mmol/L Normal 98-107 [facility] Comment on above: Performed By: #### CMP, BNP, HSTROPN ### # [facility] [address] [place] [address] [address] Irene Nina CO2 [Moles/Vol] 28.6 mmol/L Normal 21.0-32.0 [facility] Comment on above: Performed By: #### CMP, BNP, HSTROPN ### # [facility] [address] [place] [address] [address] Irene Nina Creatinine [Mass/Vol] 1.32 mg/dL Critically high 0.70-1.30 [facility] Comment on above: Performed By: #### CMP, BNP, HSTROPN ### # [facility] [address] [place] [address] Dr. Irene Nina EGFR-AF BARBADIAN >60 Normal >=60 [facility] Comment on above: Performed By: #### CMP, BNP, HSTROPN ### # [facility] [address] [place] [address] Dr. Irene Nina EGFR-NON AF BARBADIAN 56 mL/min/1.73m2 Critically low >=60 [facility] Comment on above: Performed By: #### CMP, BNP, HSTROPN ### # [facility] [address] [place] [address] Dr. Irene Nina Globulin (S) [Mass/Vol] 3.6 g/dL Normal [facility] Comment on above: Performed By: #### CMP, BNP, HSTROPN ### # [facility] [address] [place] [address] Dr. Irene Nina Glucose [Mass/Vol] 123 mg/dL Critically high 74-106 [facility] Comment on above: Performed By: #### CMP, BNP, HSTROPN ### # [facility] [address] [place] [address] Dr. Irene Nina Potassium [Moles/Vol] 4.0 mmol/L Normal 3.5-5.1 [facility] Comment on above: Performed By: #### CMP, BNP, HSTROPN ### # [facility] [address] [place] [address] Dr. Irene Nina Protein [Mass/Vol] 7.5 g/dL Normal 6.4-8.2 [facility] Comment on above: Performed By: #### CMP, BNP, HSTROPN ### # [facility] [address] [place] [address] Dr. Irene Nina Sodium [Moles/Vol] 139 mmol/L Normal 136-145 [facility] Comment on above: Performed By: #### CMP, BNP, HSTROPN ### # [facility] [address] [place], [place] [id number] Dr. Irene Nina Urea nitrogen [Mass/Vol] 14.0 mg/dL Normal 7.0-18.0 [facility] Comment on above: Performed By: #### CMP, BNP, HSTROPN ### # [facility] [address] [place] [address] Dr. Irene Nina Urea nitrogen/Creatin ine [Mass ratio] 10.6 mg/mg Normal [facility] Comment on above: Performed By: #### CMP, BNP, HSTROPN ### # [facility] [address] [place] [address] Dr. Irene Nina PROTIMEon 02-09-2023 INR Coag (PPP) [Relative time] 0.99 {INR} Normal [facility] Comment on above: Performed By: #### PT, DDIM, PTT #### [facility] [address] [place] [address] Dr. Irene Nina INR GUIDELINES SEE BELOW Normal [facility] Comment on above: Result Comment: DESIRED INR: 2.0 - 3.0 C ONDITIONS NOT LISTED BELOW 2.5 - 3.5 FOR PROSTHETIC HEART VALVE REPLACEMENT 2.5 - 3.5 RECURRENT THROMBOSIS Performed By: #### P T, DDIM, PTT #### [facility] [address] [place] [address] Dr. Irene Nina PT Coag (PPP) [Time] 10.5 s Normal 9.0-11.6 [facility] Comment on above: Performed By: #### PT, DDIM, PTT #### [facility] [address] [place] [address] Dr. Irene Nina PTTon 02-09-2023 aPTT Coag (Bld) [Time] 26.9 s Normal 22.3-36.2 [facility] Comment on above: Performed By: #### PT, DDIM, PTT #### [facility] [address] [place] [address] Dr. Irene Nina TROPONIN, HIGH SENSITIVITYon 02-09-2023 HSTROP 10.0 pg/mL Normal 4.0-76.1 [facility] Comment on above: Result Comment: CUT-OFF POINTS HAVE BEEN ESTABLISHED BASED ON THE FOURTH UNIVERSAL DEFINITIONS OF MYOCARDIAL INFARCTION. THE UPPER REFERENCE LIMIT (URL) OF TROPONIN, DEFINED THE 99TH PERCENTILE OF cTnI DISTRIBUTION IN A REFERENCE POPULATION, HAS BEEN CONFIRMED THE DECISION THRESHOLD FOR [place] DIAGNOSIS. Performed By: #### C MP, BNP, HSTROPN #### [facility] [address] [address] [address] Irene Nina XR CHEST 1 Von [...] JULIEN OLSON Date: 2023-02-09 16:15 Normal [facility] Covid-19 PCR (CVDTBH)on 08-21 SARS-CoV-2 (COVID-19) RNA LUC+probe Ql (Unsp spec) Not detected Normal NOT DETECTED [facility] Comment on above: Result Comment: When diagnostic [...] for this test is supported by the [place] of [employer] and Human Service's declaration that [...] By: #### P T, DDIM, PTT #### [facility] [address] [address] [address] Irene Nina INFLUENZA A AND B AGon 09-17 INFLUANEGH SEE BELOW Normal [facility] Comment on above: Result Comment: Negative for Flu A prote in angiten. Infection due to Flu A cannot be ruled out. Flu A angiten in the sample may be below the detection limit of the test. Performed By: #### P T, DDIM, PTT #### [facility] [address] [address] [address] Irene Nina INFLUBNEGH SEE BELOW Normal [facility] Comment on above: Result Comment: Negative for Flu B prote in antigen. Infection due to Flu B cannot be ruled out. Flu B antigen in the sample may be below the detection limit of the test. Performed By: #### P T, DDIM, PTT #### [facility] [address] [place] [address] Dr. Irene Nina INFLUENZA A AG Negative Normal NEGATIVE SEE COMMENT [facility] Comment on above: Performed By: #### PT, DDIM, PTT #### [facility] [address] [address] [address] Irene Nina INFLUENZA B AG Negative Normal NEGATIVE SEE COMMENT [facility] Comment on above: Performed By: #### PT, DDIM, PTT #### [facility] [address] [place] [address] Dr. Irene Nina VIT D 25-OH LABCORPon 2021 Vitamin D, 25-Hydroxy 38.8 ng/mL Normal 30.0-100.0 [facility] Comment on above: Result Comment: Vitamin D deficiency has been defined by the [place] of [employer] and an Endocrine Society practice guideline as a level of serum 25-OH vitamin D less than 20 ng/mL (1,2). The Endocrine Society went on to further define vitamin D insufficiency as a level between 21 and 29 ng/mL (2). 1. IOM ([employer] of [employer]). 2010. Dietary reference intakes for calcium and D. [place]: The National Academies Press. 2. Liz MF, Cas NC, Doreen COLE, et al. Evaluation, treatment, and prevention of vitamin D deficiency: an Endocrine Society clinical practice guideline. JCEM. 2010; 96(7):1911-30. Performed By: #### V ITADLC #### [facility] [address] [place] [address] Dr. Irene Nina CBC AUTO DIFFon 06-02-2022 BASO # 0.1 103/ul Normal 0.0-0.1 [facility] Comment on above: Performed By: #### CBC #### [facility] [address] [place] [address] Dr. Irene Nina Basophils/100 WBC (Bld) 1.1 % Normal 0.2-2.0 [facility] Comment on above: Performed By: #### CBC #### [facility] [address] [place] [address] Dr. Irene Nina EO # 0.3 103/ul Normal 0.0-0.7 [facility] Comment on above: Performed By: #### CBC #### [facility] [address] [place] [address] Dr. Irene Nina Eosinophils/100 WBC (Bld) 3.6 % Normal 0.9-7.0 [facility] Comment on above: Performed By: #### CBC #### [facility] [address] [place] [address] Dr. Irene Nina Erythrocyte distribution width (RBC) [Ratio] 13.1 % Normal 11.0-15.0 [facility] Comment on above: Performed By: #### CBC #### [facility] [address] [place] [address] Dr. Irene Nina Hematocrit (Bld) [Volume fraction] 44.4 % Normal 42.0-54.0 [facility] Comment on above: Performed By: #### CBC #### [facility] [address] [place] [address] Dr. Irene Nina Hemoglobin (Bld) [Mass/Vol] 14.8 g/dL Normal 14.0-18.0 [facility] Comment on above: Performed By: #### CBC #### [facility] [address] [place] [address] Dr. Irene Nina IG # 0.13 10e3/ul Critically high 0.00-0.03 [facility] Comment on above: Performed By: #### CBC #### [facility] [address] [place] [address] Dr. Irene Nina IG % 1.8 % Critically high 0.0-0.5 [facility] Comment on above: Performed By: #### CBC #### [facility] [address] [place] [address] Dr. Irene Nina LYMPH # 1.9 103/ul Normal 1.2-3.8 [facility] Comment on above: Performed By: #### CBC #### [facility] [address] [place] [address] Dr. Irene Nina Lymphocytes/100 WBC (Bld) 25.5 % Normal 20.5-60.0 [facility] Comment on above: Performed By: #### CBC #### [facility] [address] [place] [address] Dr. Irene Nina MANUAL DIFF REQ NO Normal [facility] Comment on above: Performed By: #### CBC #### [facility] [address] [place] [address] Dr. Irene Nina MCH (RBC) [Entitic mass] 28.6 pg Normal 25.9-34.0 [facility] Comment on above: Performed By: #### CBC #### [facility] [address] [place] [address] Dr. Irene Nina MCHC (RBC) [Mass/Vol] 33.3 g/dL Normal 29.9-35.2 [facility] Comment on above: Performed By: #### CBC #### [facility] [address] [place] [address] Dr. Irene Nina MCV (RBC) [Entitic vol] 85.9 fL Normal 80.0-94.0 [facility] Comment on above: Performed By: #### CBC #### [facility] [address] [place] [address] Dr. Irene Nina MONO # 0.4 103/ul Normal 0.3-0.8 [facility] Comment on above: Performed By: #### CBC #### [facility] [address] [place] [address] Dr. Irene Nina Monocytes/100 WBC (Bld) 5.2 % Normal 1.7-12.0 [facility] Comment on above: Performed By: #### CBC #### [facility] [address] [place] [address] Dr. Irene Nina NEUT # 4.6 103/ul Normal 1.4-6.5 [facility] Comment on above: Performed By: #### CBC #### [facility] [address] [place] [address] Dr. Irene Nina Neutrophils/100 WBC (Bld) 62.8 % Normal 43.0-75.0 [facility] Comment on above: Performed By: #### CBC #### [facility] [address] [place] [address] Dr. Irene Nina Platelet mean volume (Bld) [Entitic vol] 10.1 fL Normal 9.5-13.5 [facility] Comment on above: Performed By: #### CBC #### [facility] [address] [place] [address] Dr. Irene Nina PLT 240 103/ul Normal 150-450 [facility] Comment on above: Performed By: #### CBC #### [facility] [address] [place] [address] Dr. Irene Nina RBC 5.17 106/ul Normal 4.70-6.10 [facility] Comment on above: Performed By: #### CBC #### [facility] [address] [place] [address] Dr. Irene Nina WBC 7.3 103/ul Normal 4.0-11.0 [facility] Comment on above: Performed By: #### CBC #### [facility] [address] [place] [address] Dr. Irene Nina IRONon 06-02-2022 Iron [Mass/Vol] 100.0 ug/dL Normal 65.0-175.0 [facility] Comment on above: Performed By: #### PT, DDIM, PTT #### [facility] [address] [address] [address] Irene Nina PROF 14(COMP METB)on 022 Albumin [Mass/Vol] 4.2 g/dL Normal 3.4-5.0 [facility] Comment on above: Performed By: #### PT, DDIM, PTT #### [facility] [address] [address] [address] Irene Nina Albumin/Globulin [Mass ratio] 1.4 {ratio} Normal [facility] Comment on above: Performed By: #### PT, DDIM, PTT #### [facility] [address] [address] [address] Irene Nina ALP [Catalytic activity/Vol] 57 U/L Normal 46-116 [facility] Comment on above: Performed By: #### PT, DDIM, PTT #### [facility] [address] [address] [address] Irene Nina ALT [Catalytic activity/Vol] 60 U/L Normal 16-63 [facility] Comment on above: Performed By: #### PT, DDIM, PTT #### [facility] [address] [address] [address] Irene Nina Anion gap [Moles/Vol] 12.9 mmol/L Normal [facility] Comment on above: Performed By: #### PT, DDIM, PTT #### [facility] [address] [address] [address] Irene Nina AST [Catalytic activity/Vol] 43 U/L Critically high 15-37 [facility] Comment on above: Performed By: #### PT, DDIM, PTT #### [facility] [address] [address] [address] Irene Nina Bilirubin [Mass/Vol] 0.8 mg/dL Normal 0.2-1.0 [facility] Comment on above: Performed By: #### PT, DDIM, PTT #### [facility] [address] [address] [address] Irene Nina Calcium [Mass/Vol] 9.3 mg/dL Normal 8.5-10.1 [facility] Comment on above: Performed By: #### PT, DDIM, PTT #### [facility] [address] [address] [address] Irene Nina Chloride [Moles/Vol] 104 mmol/L Normal 98-107 [facility] Comment on above: Performed By: #### PT, DDIM, PTT #### [facility] [address] [address] [address] Irene Nina CO2 [Moles/Vol] 24.7 mmol/L Normal 21.0-32.0 [facility] Comment on above: Performed By: #### PT, DDIM, PTT #### [facility] [address] [place] [address] Dr. Irene Nina Creatinine [Mass/Vol] 1.00 mg/dL Normal 0.70-1.30 [facility] Comment on above: Performed By: #### PT, DDIM, PTT #### [facility] [address] [place] [address] Dr. Irene Nina EGFR-AF BARBADIAN >60 Normal >=60 [facility] Comment on above: Performed By: #### PT, DDIM, PTT #### [facility] [address] [place] [address] Dr. Irene Nina EGFR-NON AF BARBADIAN >60 Normal >=60 [facility] Comment on above: Performed By: #### PT, DDIM, PTT #### [facility] [address] [place] [address] Dr. Irene Nina Globulin (S) [Mass/Vol] 2.9 g/dL Normal [facility] Comment on above: Performed By: #### PT, DDIM, PTT #### [facility] [address] [address] [address] Irene Nina Glucose [Mass/Vol] 145 mg/dL Critically high 74-106 [facility] Comment on above: Performed By: #### PT, DDIM, PTT #### [facility] [address] [place] [address] Dr. Irene Nina Potassium [Moles/Vol] 4.6 mmol/L Normal 3.5-5.1 [facility] Comment on above: Result Comment: specimen slightly hemoly zed Performed By: #### P T, DDIM, PTT #### [facility] [address] [place] [address] Dr. Irene Nina Protein [Mass/Vol] 7.1 g/dL Normal 6.4-8.2 [facility] Comment on above: Performed By: #### PT, DDIM, PTT #### [facility] [address] [place] [address] Dr. Irene Nina Sodium [Moles/Vol] 137 mmol/L Normal 136-145 [facility] Comment on above: Performed By: #### PT, DDIM, PTT #### [facility] [address] [place] [address] Dr. Irene Nina Urea nitrogen [Mass/Vol] 12.0 mg/dL Normal 7.0-18.0 [facility] Comment on above: Performed By: #### PT, DDIM, PTT #### [facility] [address] [place] [address] Dr. Irene Nina Urea nitrogen/Creatin ine [Mass ratio] 12.0 mg/mg Normal [facility] Comment on above: Performed By: #### PT, DDIM, PTT #### [facility] [address] [place] [address] Dr. Irene Nina VIT B12 AND FOLATEon 022 Cobalamin (Vitamin B12) [Mass/Vol] 436.0 pg/mL Normal 193.0-986.0 [facility] Comment on above: Performed By: #### PT, DDIM, PTT #### [facility] [address] [place] [address] Dr. Irene Nina FOLATE 18.30 ng/mL Normal 8.60-58.90 [facility] Comment on above: Performed By: #### PT, DDIM, PTT #### [facility] [address] [place] [address] Dr. Irene Nina Vital Signs Date Time Vital Sign Value Performing Clinician Manolo rubalcava 09-04-2024 15:28-0500 Blood Pressure Location Baltazar NILL [facility] [place] 09-04-2024 15:28-0500 Diastolic blood pressure 104 mm[Hg] Baltazar NILL [facility] [place] 09-04-2024 15:28-0500 Heart rate 76 /min Baltazar NILL [facility] [place] 09-04-2024 15:28-0500 Respiratory rate 16 /min Baltazar NILL [facility] [place] 09-04-2024 15:28-0500 Systolic blood pressure 142 mm[Hg] Baltazar NILL [facility] [place] 08-27-2022 13:16-0500 Blood Pressure Location Baltazar NILL [facility] [place] 08-27-2022 13:16-0500 Diastolic blood pressure 84 mm[Hg] Baltazar NILL [facility] [place] 08-27-2022 13:16-0500 Heart rate 76 /min Baltazar NILL [facility] [place] 08-27-2022 13:16-0500 Respiratory rate 16 /min Baltazar NILL [facility] [place] 08-27-2022 13:16-0500 Systolic blood pressure 118 mm[Hg] Baltazar NILL [facility] [place] 07-14-2022 09:48-0400 Diastolic blood pressure 106 mm[Hg] MD Joni Hernandez Work Phone: [facility] 07-14-2022 09:48-0400 Heart rate 108 /min MD Joni Hernandez Work Phone: [facility] 07-14-2022 09:48-0400 Respiratory rate 20 /min MD Joni Hernandez Work Phone: [facility] 07-14-2022 09:48-0400 SaO2% (BldA) [Mass fraction] 95 % MD Joni Hernandez Work Phone: [facility] 07-14-2022 09:48-0400 Systolic blood pressure 186 mm[Hg] MD Joni Hernandez Work Phone: [facility] 07-14-2022 09:47-0400 Body height 175.26 cm MD Joni Hernandez Work Phone: [facility] 07-14-2022 09:47-0400 Body weight 91.62 kg MD Joni Hernandez Work Phone: [facility] Encounters Encounter Date Encounter Type Care Provider Facility Start: 04-05-2025 ambulatory [facility] Start: 04-05-2025 End: 04-05-2025 [facility] Start: 03-21-2025 ambulatory [facility] Start: 10-10-2024 End: 10-10-2024 ambulatory Baltazar CARTAGENA Facility: [facility] Start: 10-10-2024 End: 10-10-2024 Patient encounter procedure Baltazar CARTAGENA [facility] [place] Start: 09-26-2024 End: 09-26-2024 ambulatory Joni Hernandez MD Work Phone: [facility] Work Phone: Start: 09-26-2024 End: 09-26-2024 Departed [facility] Joni Hernandez MD Work Phone: [facility] Start: 09-26-2024 End: 09-26-2024 ambulatory Baltazar R NILL Facility:[id number] Start: 09-04-2024 End: 09-04-2024 ambulatory Baltazar R NILL Facility: [facility] Start: 09-04-2024 End: 09-04-2024 Patient encounter procedure Baltazar CARTAGENA [facility] [place] Start: 02-09-2023 End: 02-10-2023 [...] laboratory examination DR JONI HERNANDEZ . [facility] Start: 09-22-2022 End: 09-22-[address] BALTAZAR CARTAGENA . Facility:[facility] Start: 09-17-2022 End: 09-18-2022 Encounter for preprocedural laboratory examination DR JONI HERNANDEZ . Facility:[facility] Start: 09-17-2022 End: 09-18-[address] JONI HERNANDEZ . Facility:[facility] Start: 08-27-2022 End: 08-27-2022 Patient encounter procedure Baltazar CARTAGENA General [facility] [place] Start: 07-14-2022 End: 07-14-2022 ambulatory MD Joni Hernandez Work Phone: [facility] Work Phone: Start: 07-14-2022 End: 07-14-2022 Patient encounter procedure MD Joni Hernandez Work Phone: [facility] [place] Start: 06-22-2022 End: 06-22-2022 ambulatory MD Joni Hernandez Work Phone: [facility] Work Phone: Start: 06-22-2022 End: 06-22-2022 Patient encounter procedure MD Joni Hernandez Work Phone: [facility] [place] Start: 06-03-2022 End: 06-04-[address] JONI [...] Immunization Date Immunization Notes Care Provider Fa cility NEGATED: Highlighted row has not occurred!08-27-2022 influenza virus vaccine, unspecified formulation Baltazar NILL [facility] [place] NEGATED: Highlighted row has not occurred!10-30-2019 influenza virus vaccine, live, attenuated, for intranasal use Baltazar NILL [facility] [place] Payers Date Payer Category Payer Self-pay [id number] 1965 Unknown [id number] 2.16.84 [id number] 1965 Unknown [id number] 2.16.84 [id number] 1965 Unknown [id number] 2.16.84 [id number] 1965 Unknown [id number] 2.16.84 [id number] 1965 Unknown [id number] 2.16.84 [id number] 1965 Unknown [id number] 2.16.84 [id number] 1965 Unknown [id number] 2.16.84 [id number] 1965 Unknown [id number] 2.16.84 [id number] 1965 Unknown [id number] 2.16.84 [id number] 1965 Unknown [id number] 2.16.8 [id number] 1965 Unknown [id number] 2.16.8 [id number] 1965 Unknown [id number] 2.16.8 [id number] 1961 Medicaid [id number] 1961 Unknown [id number] 1961 Unknown [id number] Unknown [facility] [id number] Unknown [id number] 2.16.8 [id number] Social History Date Type Detail Facility [facility] Work Phone: Start: 1965 Sex Assigned At Male [facility] Start: 08-27-2022 End: 09-04-2024 Tobacco smoking status Never smoked tobacco (finding) [facility] [place] Tobacco smoking status Never Gener al [facility] [place] Sex Assigned At Male [facility] Tobacco smoking stat [facility] Unknown if ever smoked [facility] Work Phone: Start: 09-28-2024 Sex Male (finding) [facility] Functional Status Date Assessment Result Facility 09-04-2024 Functional Status N/A [facility] [place] 08-27-2022 Functional Status N/A [facility] [place] Progress note 03-21-2025 Note Date & Type Note Facility 03-21-2025 Note [facility] Note Chief Complaint: New patient here to establish care. Ref from Dr. Hernandez for abnormal stress test. Says test was ordered for BRAUN and palpitations. Has had some intermittent chest pain but nothing that stands out right now . Says he gets lots of lightheadedness/dizziness. Father had NV in his 60's. HPI: Hina Schultz is a 59 y.o. male With a history of hypertension, dyslipidemia here due to an abnormal stress test For the past several weeks, he has noticed exertional shortness of breath and chest tightness particular when he exerts himself. He has to rest for the discomfort to go away. He describes numbness in both arms with exertion. No radiation to the back or throat. He has no orthopnea or paroxysmal current dyspnea, he has no significant lower extremity edema. 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 When performing this recently he had the symptoms of chest pressure and shortness of breath. Cardiology ROS: Review of Systems Cardiovascular: Positive for chest pain (intermittent), dyspnea on exertion, irregular heartbeat and palpitations. Musculoskeletal: Positive for back pain and myalgias. Neurological: Positive for dizziness and light-headedness. All other systems reviewed and are negative. Past Medical History He has a past medical history of Allergic rhinitis, Anxiety, Diverticulitis, Dizziness, BRAUN (dyspnea on exertion), Esophageal reflux, HTN (hypertension) (03/21/2025), Insomnia, Kidney stone, Memory loss, Near syncope, Over weight, Prediabetes, Shortness of breath, and Sleep apnea. Surgical History He has a past surgical history that includes Colonoscopy; Cystoscopy; and Lithotripsy. Social History He reports that he has never smoked. He has never used smokeless tobacco. No history on file for alcohol use and drug use. Family History Family History[1] Allergies Atorvastatin, Morphine, and Clindamycin Medications Current Medications[2] Last Recorded Vitals BP 117/85 (BP Location: Right arm, Patient Position: Sitting) Pulse 84 Ht 1.727 m (5' 8 ) Wt 106 kg (233 lb) SpO2 97% BMI 35.43 kg/m??? Physical Examination: GENERAL: alert and oriented x3, well developed, in no acute distress. HEAD: atraumatic, normocephalic. EYES: KINGSLEY, EOMI. NECK: trachea midline, no JVD present, no carotid bruits present. CARDIAC: S1, S2 present. RRR. No murmur, rubs, or gallops. RESPIRATORY: CTAB, no increased effort of breathing, no rales, rhonchi, or wheezing. ABDOMEN: soft, nontender, nondistended. EXTREMITIES: no lower extremity edema, peripheral pulses are 2+ bilaterally. No rash/skin discoloration present. NEURO: strength/sensation equal and symmetric in bilateral upper and lower extremities. PSYCH: appropriate mood, affect, and judgement. INVESTIGATIONS Labs 03/08/2025: BUN 17, creatinine 1.31 HbA1c 6.2 Total cholesterol 169, triglycerides 104, LDL 95.2, HDL 53 TSH normal, free T4 normal, free T3 is low at 1.93 Stress test 03/20/2025: Maximal stress test achieving 85% of maximal predicted heart rate Normal heart rate and blood pressure response to exercise The stress test is negative for exercise-induced ischemic symptoms, EKG changes or arrhythmias Nuclear images conclusion: Abnormal myocardial perfusion stress test showing evidence of inferior ischemia Normal left ventricular systolic function, ejection fraction 65% No transient ischemic dilation EKG portion of stress test reported separately Assessment: Unstable angina Exertional shortness of breath Family history of premature coronary artery disease Palpitations, Lightheadedness and dizziness Hypertension Dyslipidemia Abnormal stress test; Inferior ischemia Plan: Given the patient's risk factor profile, his symptoms, and abnormal stress test, I recommended proceeding with cardiac catheterization Routine precath labs Right heart catheterization and coronary angiography via right internal jugular and left radial approach will be scheduled in the coming 1 to 2 weeks He is to limit exertional activities until cardiac catheterization Further recommendations pending the cardiac catheterization Stuart Suarez MD, MPH, [facility], [facility], [facility] Interventional Cardiology Pager Email: [email or web address] [[email or web address]] Family History Problem Relation Name Age of Onset Cancer Mother Cancer Father [2] Current Outpatient Medications: diclofenac (Voltaren) 75 mg EC tablet, Take 75 mg by mouth two times daily., Disp: , Rfl: Dulera 100-5 mcg/actuation inhaler, Inhale 2 puffs in the morning and at bedtime., Disp: , Rfl: lisinopril 40 mg tablet, Take 40 mg by mouth in the morning., Disp: , Rfl: loratadine-pseudoephedrine (Claritin-D 24-hour) 10-240 mg 24 hr tablet, Take 1 tablet by mouth if needed each day., Disp: , Rfl: pantoprazole (ProtoNix) 40 mg EC tablet, Take 40 mg by mouth before breakfast., Disp: , Rfl: simvastati (more content not included)... [facility] Clinical Note 09-04-2024 Note Date & Type [...] mg Cap-DR, 1 (more content not included)... [facility] Comment on above: Result Comment: Elec tronically Signed By: TONY WHITESIDE, Baltazar Lundberg\Date and Time Signed: 09/04/24 16:18 EST Clinical [...] good condition. CC: Patient's family physician [facility] Clinical Note 06-03-2022 Note Date & Type [...] by: JULIEN OLSON Date: 2022-06-03 11:45 [facility] Evaluation + Plan note Note Date & Type Note Facility Evaluation + Plan note No data available for this section [facility] [place] Evaluation note Note Date & Type Note Facility Evaluation note No assessment information availa [facility] Work Phone: Hospital Discharge instructions Note Date & Type Note Facility Hospital Discharge instructions No data available for this section [facility] [place] Progress note Note Date & Type Note Facility Progress note No data available for this section [facility] [place] Chief Complaint and Reason for Visit Chief [...] for this section No Family History Records FoundNo Family History Records Found Additional Source Comments Care Teams (unrecognized sec tion and content) Team Status: Inactive Member Role Status Dates Joni Hernandez MD Primary Care Provider, Attending Rupert delgado Active Team Status: Active Member Role Status Dates Joni Hernandez MD Primary Care Provider Active Team Status: Inactive Member Role Status Dates Joni Hernandez MD Primary Care Provider Active Start: September 26, 2024 End: September 26, 2024 Baltazar Cartagena MD [facility] Attending Provider Active Start: September 26, 2024 [...] Records FoundNo Status Records FoundNo Status Records FoundNo Status Records Found INFORMATION SOURCE (unrecogn ized section and content) DATE CREATED AUTHOR 02/25/2023 [facility] DATE CREATED AUTHOR AUTHOR'S ORGANIZ ATION 10/02/2024 [facility] DATE CREATED AUTHOR AUTHOR'S ORGANIZ ATION 10/19/2024 Brad Brizuela [facility] DATE CREATED AUTHOR AUTHOR'S ORGANIZ ATION 04/10/2025 [facility] FOR RECORDS PERTAINING TO PATIENTS WHO ARE [...] THE PRIMARY CLINICAL RECORDS. [employer] [facility]. provides no warranty or guarantee of the accuracy or completeness of information in this document.
== END 2025-04-30 16:00 | disposition home or self-care (01) ==
LOC: CARD 15:59
PROVIDERS: PCP Family Medicine; Visit Provider Internal Medicine Interventional Cardiology
DX: I25.112 Atherosclerotic heart disease of native coronary artery with refractory angina pectoris (principal)
CPT/HCPCS: 93306

== ENCOUNTER 2025-07-24 12:16 | Outpatient (RCR) | payer MEDICAID, SELFPAY ==
--- NOTE | 2025-06-05 09:36 | CR1_ITS ---
The [facility] Test Date: 2025-06-05 Pat Name: HINA ALDRIDGE Department: Room: - Gender: Male [employer] Developer: : 1965 Requested By: EDSON TOSCANO Order Number: [id number] [place]on MD: RITA VO M.D. Interpretive Statements Patient may start cardiac rehab as outlined in the treatment plan. Electronically Signed On 06-05-2025 18:03:32 EDT by RITA VO M.D.
--- NOTE | 2025-06-10 07:45 | CR1_ITS ---
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 Interpretive Statements Patient may start cardiac rehab as outlined in the treatment plan. Electronically Signed On 06-10-2025 17:18:34 EDT by RITA VO M.D.
--- NOTE | 2025-06-27 09:22 | CR1_ITS ---
The [facility] Test Date: 2025-06-27 Pat Name: HINA ALDRIDGE Department: Room: - Gender: Male [employer] Producer: : 1965 Requested By: EDSON TOSCANO Order Number: [id number] Samson MD: RITA VO M.D. Interpretive Statements Patient may continue cardiac rehab as outlined in the treatment plan. Electronically Signed On 06-27-2025 10:53:30 EDT by RITA VO M.D.
--- NOTE | 2025-07-24 07:04 | PC.NURSE ---
out reach letter sent. voicemail left earlier this week for patient to reschedule. both patient and had COVID/Exposure and took some time off. He should be able to return now and we would love to get him back on the schedule at his earliest convenience.
--- NOTE | 2025-07-29 07:59 | CR1_ITS ---
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 Interpretive Statements Patient may continue cardiac rehab as outlined in the treatment plan. Electronically Signed On 07-29-2025 19:24:42 EST by RITA VO M.D.
--- NOTE | 2025-08-19 14:13 | CR1_ITS ---
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 Interpretive Statements Patient has completed rehab program and have noted outcomes. Electronically Signed On 08-19-2025 22:34:22 EST by RITA VO M.D.
== END 2025-08-19 14:14 | disposition home or self-care (01) ==
LOC: CR 12:16
PROVIDERS: PCP Family Medicine; Visit Provider Internal Medicine Interventional Cardiology
DX: I25.112 Atherosclerotic heart disease of native coronary artery with refractory angina pectoris (principal)
CPT/HCPCS: 93798